=== PATIENT | female | born 1970 | race Hispanic/Latino ===

== ENCOUNTER 2018-06-14 00:14 | Emergency (ER) | payer SELFPAY ==
[~2018-06-14] VITALS: Ht 162.6 cm; Wt 72.1 kg
[~2018-06-14 00:14] MED LIST: BACTRIM DS TAB1 EACH PO; CALCIUM500 MG; CEFDINIR300 MG PO; DILAUDID4 MG PO; FENTANYL1 EAC1 TOP; FERROUS SULFAT324 MG; GABAPENTIN300 MG PO; HUMALOG100 UNIT/1; HUMULIN-R100 UNITS/ SC; LANTUS100 UNITS/ SC; LISINOPRIL10 MG PO; LOPRESSOR25 MG PO; LYRICA75 MG PO; METFORMIN HCL500 MG PO; METOCLOPRAMIDE10 MG PO; NEXIUM40 MG PO; NORCO 10MG-325MG1 EA PO; OXYCODONE HCL10 MG PO; PERCOCET 10-321 EACH; ULTRAM50 MG PO; VITAMIN D250000 UNIT PO; ZYVOX600 MG PO
--- OUTSIDE RECORDS SUMMARY | 2018-06-14 00:18 | XMS REPORT | Continuity of Care Document ---
Author Author [facility] Interface Address Unknown Phone Unavailable Problems Problem Status Onset Date Classification Date Reported Comments Source Discharge Diagnosis: Acute Hyperglycemia 10/12/2014 10/14/2014 [facility] Discharge Diagnosis: Drug-seeking behavior 10/12/2014 10/14/2014 [facility] Discharge Diagnosis: Abscess of groin, right 10/11/2014 10/14/2014 [facility] ABSCESS Active 10/11/2014 [facility] Diabetes Type 2 Resolved Problem 10/14/2014 [facility] Medications Medication Details Route Status Patient Instructions Ordering Provider Order Date Source Sulfamethoxazole 800 MG / Trimethoprim 160 MG Oral Tablet [Bactrim] 1 tab, PO, BID, # 28 tab, 0 Refill(s) Active 10/12/2014 [facility] Hydromorphone 1 mg, Route: IVP, ONCE, Dosing Weight 68.182, kg, Priority: STAT, Start date: 10/12/14 0:01:00, Stop date: 10/12/14 0:01:00 Inactive 10/12/2014 [facility] Dilaudid 1 mg, Route: IV, ONCE, Dosing Weight 68.182, kg, Start date: 10/12/14 0:01:00, Stop date: 10/12/14 0:01:00 Inactive 10/12/2014 [facility] Vancomycin 2 gm, 500 mL, Route: IVPB, Drug form: SOLN, ONCE, Dosing Weight 68.182, kg, Priority: STAT, Start date: 10/11/14 21:23:00, Stop date: 10/11/14 21:23:00Notes: Same as: Vancocin Infusion rate 2001 mg: infuse over 2.5 hours Inactive 10/12/2014 [facility] Potassium Chloride 20 MEQ Extended Release Tablet 40 mEq, 2 tab, Route: PO, Drug form: ERTAB, ONCE, Dosing Weight 68.182, kg, Priority: STAT, Start date: 10/11/14 21:16:00, Stop date: 10/11/14 21:16:00Notes: (Same as: K-Dur 20) "Do Not Crush" With food and full glass of water Inactive 10/12/2014 [facility] Insulin regular 10 unit, 0.1 mL, Route: IVP, Drug form: INJ, ONCE, Dosing Weight 68.182, kg, Priority: STAT, Start date: 10/11/14 21:07:00, Stop date: 10/11/14 21:07:00Notes: (Same as: Humulin R and NovoLIN R) (Do not shake) Inactive 10/12/2014 [facility] Sodium Chloride 0.154 MEQ/ML Injectable Solution 1,000 mL, 1,000 ml/hr, Infuse Over: 1 hr, Route: IV, 1,000, Drug form: INJ, ONCE, Priority: STAT, Dosing Weight 68.182 kg, Start date: 10/11/14 21:06:00, Duration: 1 doses or times, Stop date: 10/11/14 21:06:00 No Longer Active 10/12/2014 [facility] Insulin regular 10 unit, 0.1 mL, Route: SUB-Q, Drug form: INJ, ONCE, Dosing Weight 68.182, kg, Priority: STAT, Start date: 10/11/14 20:49:00, Stop date: 10/11/14 20:49:00Notes: (Same as: Humulin R and NovoLIN R) (Do not shake) Inactive 10/12/2014 [facility] Acetaminophen 300 MG / Codeine Phosphate 60 MG Oral Tablet [Tylenol with Codeine #4] 1 - 2 tab, PO, Q4H, PRN Pain, # 20 tab, 0 Refill(s) Active 10/12/2014 [facility] Sulfamethoxazole 800 MG / Trimethoprim 160 MG Oral Tablet [Bactrim] 1 tab, PO, BID, # 20 tab, 0 Refill(s) Active 10/12/2014 [facility] Clindamycin 900 mg, Route: IVPB, ONCE, Dosing Weight 68.182, kg, Priority: STAT, Start date: 10/11/14 19:20:00, Stop date: 10/11/14 19:20:00 Inactive 10/12/2014 [facility] Zofran 4 mg, 2 mL, Route: IVP, Drug form: INJ, ONCE, Dosing Weight 68.182, kg, Priority: STAT, Start date: 10/11/14 19:20:00, Stop date: 10/11/14 19:20:00Notes: (Same as: Zofran) Inactive 10/12/2014 [facility] Sodium Chloride 0.154 MEQ/ML Injectable Solution 1,000 mL, 1,000 ml/hr, Infuse Over: 1 hr, Route: IV, 1,000, Drug form: INJ, ONCE, Priority: STAT, Dosing Weight 68.182 kg, Start date: 10/11/14 19:19:00, Duration: 1 doses or times, Stop date: 10/11/14 19:19:00 Inactive 10/12/2014 [facility] Morphine 4 mg, 2 mL, Route: IVP, Drug form: INJ, ONCE, Dosing Weight 68.182, kg, Start date: 10/11/14 19:19:00, Stop date: 10/11/14 19:19:00Notes: (Same as:MORPhine Sulfate) Inactive 10/12/2014 [facility] Allergies, Adverse Reactions, Alerts Substance Category Reaction Severity Reaction type Status Date Reported Comments Source Immunizations Immunization Date Given Site Status Last Updated Comments Source Results Order Name Results Value Reference Range Date Interpretation Comments Source URINE CHEM U Preg Negative (10/11/14 8:31 PM) Negative 10/12/2014 [facility] URINE AND STOOL UA Color Ltyellow 10/12/2014 [facility] URINE AND STOOL UA Urobilinogen <=1.0 mg/dL 0.1 - 1.0 10/12/2014 [facility] URINE AND STOOL UA WBC 1 /HPF 0 - 5 10/12/2014 [facility] URINE AND STOOL UA Blood Small *ABN* (10/11/14 8:18 PM) Negative 10/12/2014 [facility] URINE AND STOOL UA Sq Epi Occasional /LPF Few /LPF 10/12/2014 [facility] URINE AND STOOL UA Nitrite Negative (10/11/14 8:18 PM) Negative 10/12/2014 [facility] URINE AND STOOL UA Leuk Est Negative (10/11/14 8:18 PM) Negative 10/12/2014 [facility] URINE AND STOOL UA Spec Grav 1.021 <=1.030 10/12/2014 [facility] URINE AND STOOL UA Turbidity Clear (10/11/14 8:18 PM) Clear 10/12/2014 [facility] URINE AND STOOL UA RBC 4 /HPF 0 - 2 10/12/2014 [facility] URINE AND STOOL UA [place] Yeast Occasional /HPF None Seen /HPF 10/12/2014 [facility] URINE AND STOOL UA Ketones Negative mg/dL Negative mg/dL 10/12/2014 [facility] URINE AND STOOL UA Bili Negative *NA* (10/11/14 8:18 PM) Negative 10/12/2014 [facility] URINE AND STOOL UA Glucose 500 mg/dL Negative mg/dL 10/12/2014 [facility] URINE AND STOOL UA pH 6.0 5.0 - 8.0 10/12/2014 [facility] URINE AND STOOL UA Protein Negative mg/dL Negative mg/dL 10/12/2014 [facility] CHEM PANEL Lactic Acid Lvl 5.2 mMol/L 0.5 - 2.2 10/12/2014 5Result Comment: Critical Result(s) called to october grgurt at 10/11/2014 20:43_ byAN_. Read back OK. [facility] CHEM PANEL Lipase Lvl 167 unit/L 73 - 393 10/12/2014 [facility] CHEM PANEL Amylase Lvl 34 unit/L 25 - 115 10/12/2014 [facility] ELECTROLYTES Potassium Lvl 3.0 meq/L 3.5 - 5.1 10/12/2014 1Result Comment: Critical Result(s) called to october grgurt at 10/11/2014 20:43_ byAN_. Read back OK. [facility] ELECTROLYTES Sodium Lvl 129 meq/L 135 - 145 10/12/2014 [facility] ELECTROLYTES Chloride Lvl 91 meq/L 95 - 109 10/12/2014 [facility] ELECTROLYTES eGFR 61 mL/min/1.73m2 10/12/2014 2Result Comment: The eGFR is calculated using the CKD-EPI formula. In most young, healthy individuals the eGFR will be >90 mL/min/1.73m2. The eGFR declines with age. An eGFR of 60-89 may be normal in some populations, particularly the elderly, for whom the CKD-EPI formula has not been extensively validated. Use of the eGFR is not recommended in the following populations: Individuals with unstable creatinine concentrations, including patients and those with serious co-morbid conditions. Patients with extremes in muscle mass or diet. The data above are obtained from the National Kidney Disease Education Program (NKDEP) which additionally recommends that when the eGFR is used in patients with extremes of body mass index for purposes of drug dosing, the eGFR should be multiplied by the estimated BMI. [facility] ELECTROLYTES BUN 12 mg/dL 7 - 22 10/12/2014 [facility] ELECTROLYTES Creatinine Lvl 1.1 mg/dL 0.5 - 1.4 10/12/2014 [facility] ELECTROLYTES AGAP 13.0 meq/L 10.0 - 20.0 10/12/2014 [facility] ELECTROLYTES CO2 28 meq/L 24 - 32 10/12/2014 [facility] ELECTROLYTES Glucose Lvl 561 mg/dL 70 - 99 10/12/2014 4Interpretive Data: Adult reference range values reflect the clinical guidelines of the [place] [employer]. [facility] ELECTROLYTES B/C Ratio 11 6 - 25 10/12/2014 [facility] ELECTROLYTES Calcium Lvl 7.7 mg/dL 8.5 - 10.5 10/12/2014 [facility] ELECTROLYTES AST 18 unit/L 0 - 37 10/12/2014 [facility] ELECTROLYTES A/G Ratio 0.6 0.7 - 1.6 10/12/2014 [facility] ELECTROLYTES ALT 9 unit/L 0 - 65 10/12/2014 [facility] ELECTROLYTES Bili Total 0.6 mg/dL 0.2 - 1.3 10/12/2014 [facility] ELECTROLYTES Alk Phos 129 unit/L 39 - 136 10/12/2014 [facility] ELECTROLYTES Total Protein 6.7 g/dL 6.4 - 8.4 10/12/2014 [facility] ELECTROLYTES Albumin Lvl 2.4 g/dL 3.5 - 5.0 10/12/2014 [facility] ELECTROLYTES Globulin 4.3 g/dL 2.0 - 4.0 10/12/2014 [facility] HEMATOLOGY MPV 10.7 fL 7.4 - 10.4 10/12/2014 [facility] HEMATOLOGY Platelet 156 K/CMM 133 - 450 10/12/2014 [facility] MCV 93.5 fL 80.0 - 98.0 10/12/2014 [facility] Hgb 11.8 g/dL 12.0 - 16.0 10/12/2014 [facility] HEMATOLOGY Hct 34.1 % 36.0 - 48.0 10/12/2014 [facility] MCH 32.4 pg 27.0 - 31.0 10/12/2014 [facility] MCHC 34.7 g/dL 32.0 - 36.0 10/12/2014 [facility] RDW 12.4 % 11.5 - 14.5 10/12/2014 [facility] RBC 3.65 M/CMM 4.20 - 5.40 10/12/2014 [facility] HEMATOLOGY WBC 11.6 K/CMM 3.7 - 10.4 10/12/2014 [facility] HEMATOLOGY Basophils 0.5 % 0.0 - 1.0 10/12/2014 [facility] HEMATOLOGY Eosinophils 1.0 % 0.0 - 4.0 10/12/2014 [facility] HEMATOLOGY Monocytes 6.0 % 2.0 - 12.0 10/12/2014 [facility] HEMATOLOGY Basophils # 0.1 K/CMM 0.0 - 0.2 10/12/2014 [facility] HEMATOLOGY Segs-Bands # 9.2 K/CMM 1.5 - 8.1 10/12/2014 [facility] HEMATOLOGY Lymphocytes # 1.5 K/CMM 1.0 - 5.5 10/12/2014 [facility] HEMATOLOGY Monocytes # 0.7 K/CMM 0.0 - 0.8 10/12/2014 [facility] HEMATOLOGY Eosinophils # 0.1 K/CMM 0.0 - 0.5 10/12/2014 [facility] HEMATOLOGY Segs 79.4 % 45.0 - 75.0 10/12/2014 [facility] HEMATOLOGY Lymphocytes 13.1 % 20.0 - 40.0 10/12/2014 [facility] Vital Signs Vital Sign Value Date Comments Source Systolic (mm Hg) 123 10/12/2014 [facility] Diastolic (mm Hg) 79 10/12/2014 [facility] Respitory Rate 16 10/12/2014 [facility] Heart Rate 113 10/12/2014 [facility] Temperature Oral (F) 98.7 F 10/12/2014 [facility] Respitory Rate 16 10/12/2014 [facility] Temperature Oral (F) 98.5 F 10/12/2014 [facility] Heart Rate 107 10/12/2014 [facility] Systolic (mm Hg) 148 10/12/2014 [facility] Diastolic (mm Hg) 87 10/12/2014 [facility] BMI Calculated 25.01 10/11/2014 [facility] Weight 68.182 10/11/2014 [facility] Height 165.1 cm 10/11/2014 [facility] Heart Rate 110 10/11/2014 [facility] Respitory Rate 16 10/11/2014 [facility] Systolic (mm Hg) 115 10/11/2014 [facility] Diastolic (mm Hg) 75 10/11/2014 [facility] Encounters Location Location Details Encounter Type Encounter Number Reason For Visit Attending Provider ADM Date DC Date Status Source [facility] [id number] Tricia Forman 10/11/2014 10/12/2014 [facility] Procedures Procedure Code Date Perfomer Comments Source section [id number] [facility] Tubal ligation [id number] [facility]
--- OUTSIDE RECORDS SUMMARY | 2018-06-14 00:18 | XMS REPORT | Summary of Care ---
Author Organization Unknown Address Unknown Phone Unavailable Encounter [facility](SCOOBY) [id number] Date(s): 10/11/14 - 10/12/14 [facility] [address] [place] [address] Discharge Diagnosis: Acute Hyperglycemia Discharge Diagnosis: Abscess of groin, right Discharge Diagnosis: Drug-seeking behavior Discharge Disposition: Home Physician Attending: Tricia Forman MD Vital Signs 1 2 3 Most recent to oldest [Reference Range]: 165.1 cm (10/11/14 6:30 PM) Height 98.7 DegF (10/12/14 1:46 AM) 98.5 DegF (10/11/14 11:02 PM) Temperature Oral [96.4-99.1 DegF] 123/79 mmHg (10/12/14 1:46 AM) 148/87 mmHg *HI* (10/11/14 11:02 PM) 115/75 mmHg (10/11/14 6:30 PM) Blood Pressure [90-140/60-90 mmHg] 16 BRMIN (10/12/14 1:46 AM) 16 BRMIN (10/11/14 11:02 PM) 16 BRMIN (10/11/14 6:30 PM) Respiratory Rate [14-20 BRMIN] 113 bpm *HI* (10/12/14 1:46 AM) 107 bpm *HI* (10/11/14 11:02 PM) 110 bpm *HI* (10/11/14 6:30 PM) Peripheral Pulse Rate [60-100 bpm] 68.182 kg (10/11/14 6:30 PM) Weight 25.01 m2 (10/11/14 6:30 PM) Body Mass Index Problem List Condition Effective Dates Status Health Status Informant Diabetes Type Resolved 2(Confirmed) Allergies, Adverse Reactions, Alerts Substance Reaction Severity Status NKDA Active Medications Bactrim DS oral tablet 1 tab, PO, BID, # 20 tab, 0 Refill(s) Start Date: 10/11/14 Stop Date: 10/21/14 Status: Ordered Bactrim DS oral tablet 1 tab, PO, BID, # 28 tab, 0 Refill(s) Start Date: 10/12/14 Stop Date: 10/26/14 Status: Ordered clindamycin 900 mg, Route: IVPB, ONCE, Dosing Weight 68.182, kg, Priority: STAT, Start date: 10/11/14 19:20:00, Stop date: 10/11/14 19:20:00 Start Date: 10/11/14 Stop Date: 10/11/14 Status: Completed Dilaudid 1 mg, Route: IV, ONCE, Dosing Weight 68.182, kg, Start date: 10/12/14 0:01:00, S top date: 10/12/14 0:01:00 Start Date: 10/12/14 Stop Date: 10/12/14 Status: Completed hydromorphone 1 mg, Route: IVP, ONCE, Dosing Weight 68.182, kg, Priority: STAT, Start date: 0:01:00, Stop date: 10/12/14 0:01:00 Start Date: 10/12/14 Stop Date: 10/12/14 Status: Completed Insulin regular 10 unit, 0.1 mL, Route: IVP, Drug form: INJ, ONCE, Dosing Weight 68.182, kg, Doris ority: STAT, Start date: 10/11/14 21:07:00, Stop date: 10/11/14 21:07:00 Notes: (Same as: Humulin R and NovoLIN R) (Do not shake) Start Date: 10/11/14 Stop Date: 10/11/14 Status: Discontinued Insulin regular 10 unit, 0.1 mL, Route: SUB-Q, Drug form: INJ, ONCE, Dosing Weight 68.182, kg, P riority: STAT, Start date: 10/11/14 20:49:00, Stop date: 10/11/14 20:49:00 Notes: (Same as: Humulin R and NovoLIN R) (Do not shake) Start Date: 10/11/14 Stop Date: 10/11/14 Status: Completed morphine Sulfate 4 mg, 2 mL, Route: IVP, Drug form: INJ, ONCE, Dosing Weight 68.182, kg, Start da te: 10/11/14 19:19:00, Stop date: 10/11/14 19:19:00 Notes: (Same as:MORPhine Sulfate) Start Date: 10/11/14 Stop Date: 10/11/14 Status: Completed NS (Bolus) IV 1,000 mL, 1,000 ml/hr, Infuse Over: 1 hr, Route: IV, 1,000, Drug form: INJ, ONCE , Priority: STAT, Dosing Weight 68.182 kg, Start date: 10/11/14 19:19:00, Durati on: 1 doses or times, Stop date: 10/11/14 19:19:00 Start Date: 10/11/14 Stop Date: 10/11/14 Status: Completed potassium chloride 20 mEq oral tablet, extended release 40 mEq, 2 tab, Route: PO, Drug form: ERTAB, ONCE, Dosing Weight 68.182, kg, Prio rity: STAT, Start date: 10/11/14 21:16:00, Stop date: 10/11/14 21:16:00 Notes: (Same as: K-Dur 20)"Do Not Crush" With food and full glass of water Start Date: 10/11/14 Stop Date: 10/11/14 Status: Completed Sodium Chloride 0.9% (Bolus) IV 1,000 mL, 1,000 ml/hr, Infuse Over: 1 hr, Route: IV, 1,000, Drug form: INJ, ONCE , Priority: STAT, Dosing Weight 68.182 kg, Start date: 10/11/14 21:06:00, Durati on: 1 doses or times, Stop date: 10/11/14 21:06:00 Start Date: 10/11/14 Stop Date: 10/12/14 Status: Completed Sodium Chloride 0.9% (Bolus) IV 1,000 mL, 1,000 ml/hr, Infuse Over: 1 hr, Route: IV, 1,000, Drug form: INJ, ONCE , Priority: STAT, Dosing Weight 68.182 kg, Start date: 10/11/14 21:06:00, Durati on: 1 doses or times, Stop date: 10/11/14 21:06:00 Start Date: 10/11/14 Stop Date: 10/11/14 Status: Completed Tylenol with Codeine #4 oral tablet 1 - 2 tab, PO, Q4H, PRN Pain, # 20 tab, 0 Refill(s) Start Date: 10/11/14 Stop Date: 10/13/14 Status: Ordered vancomycin 2 gm, 500 mL, Route: IVPB, Drug form: SOLN, ONCE, Dosing Weight 68.182, kg, Prio rity: STAT, Start date: 10/11/14 21:23:00, Stop date: 10/11/14 21:23:00 Notes: Same as: Vancocin Infusion rate< 1000 mg: infuse over 1 [id number] - 1500 mg: infuse over 1.5 [id number] - 2000 mg: infuse over 2 hours> 2001 mg: infuse over 2.5 hours Start Date: 10/11/14 Stop Date: 10/11/14 Status: Completed Zofran 4 mg, 2 mL, Route: IVP, Drug form: INJ, ONCE, Dosing Weight 68.182, kg, Priority : STAT, Start date: 10/11/14 19:20:00, Stop date: 10/11/14 19:20:00 Notes: (Same as: Zofran) Start Date: 10/11/14 Stop Date: 10/11/14 Status: Completed Results ELECTROLYTES Most recent to 1 oldest [Reference Range]: Sodium Lvl [135-145 129 mEq/L mEq/L] *LOW* (10/11/14 8:09 PM) Potassium Lvl 3.0 mEq/L 1 [3.5-5.1 mEq/L] *CRIT* (10/11/14 8:09 PM) Chloride Lvl [95-109 91 mEq/L mEq/L] *LOW* (10/11/14 8:09 PM) CO2 [24-32 mEq/L] 28 mEq/L (10/11/14 8:09 PM) AGAP [10.0-20.0 13.0 mEq/L mEq/L] (10/11/14 8:09 PM) 1Result Comment: Critical Result(s) called to october ricky at 10/11/2014 20:43_ byAN_. Read back OK. CHEM PANEL Most recent to 1 oldest [Reference Range]: Creatinine Lvl 1.1 mg/dL [0.5-1.4 mg/dL] (10/11/14 8:09 PM) eGFR 61 mL/min/1.73m2 2 *NA* (10/11/14 8:09 PM) BUN [7-22 mg/dL] 12 mg/dL (10/11/14 8:09 PM) B/C Ratio [6-25] 11 (10/11/14 8:09 PM) Glucose Lvl [70-99 561 mg/dL 3, 4 mg/dL] *CRIT* (10/11/14 8:09 PM) Total Protein 6.7 g/dL [6.4-8.4 g/dL] (10/11/14 8:09 PM) Albumin Lvl [3.5-5.0 2.4 g/dL g/dL] *LOW* (10/11/14 8: PM) Globulin [2.0-4.0 4.3 g/dL g/dL] *HI* (10/11/14 8:09 PM) A/G Ratio [0.7-1.6] 0.6 *LOW* (10/11/14 8:09 PM) Calcium Lvl 7.7 mg/dL [8.5-10.5 mg/dL] *LOW* (10/11/14 8:09 PM) ALT [0-65 unit/L] 9 unit/L (10/11/14 8:09 PM) AST [0-37 unit/L] 18 unit/L (10/11/14 8:09 PM) Alk Phos [39-136 129 unit/L unit/L] (10/11/14 8:09 PM) Bili Total [0.2-1.3 0.6 mg/dL mg/dL] (10/11/14 8:09 PM) Amylase Lvl [25-115 34 unit/L unit/L] (10/11/14 8:09 PM) Lipase Lvl [73-393 167 unit/L unit/L] (10/11/14 8:09 PM) Lactic Acid Lvl 5.2 mMol/L 5 [0.5-2.2 mMol/L] *CRIT* (10/11/14 8:09 PM) 2Result Comment: The eGFR is calculated using [...] from the National Kidney Disease Education Program ( NKDEP) which additionally recommends that when the eGFR is used in patients with extremes of body mass index for purposes of drug dosing, the eGFR should be mul tiplied by the estimated BMI. 3Result Comment: Critical Result(s) called to octoberjosefa at 10/11/2014 20:43_ byAN_. Read back OK. 4Interpretive Data: Adult reference range values reflect the clinical guidelines of the [place] [employer]. 5Result Comment: Critical Result(s) called to octobersushil at 10/11/2014 20:43_ byAN_. Read back OK. URINE CHEM Most recent to 1 oldest [Reference Range]: U Preg [Negative] Negative (10/11/14 8:31 PM) URINE AND STOOL Most recent to 1 oldest [Reference Range]: UA Turbidity [Clear] Clear (10/11/14 8:18 PM) UA Color Ltyellow *NA* (10/11/14 8:18 PM) UA pH [5.0-8.0] 6.0 (10/11/14 8:18 PM) UA Spec Grav 1.021 [<=1.030] (10/11/14 8:18 PM) UA Glucose [Negative 500 mg/dL mg/dL] *ABN* (10/11/14 8:18 PM) UA Blood [Negative] Small *ABN* (10/11/14 8:18 PM) UA Ketones [Negative Negative mg/dL mg/dL] *NA* (10/11/14 8:18 PM) UA Protein [Negative Negative mg/dL mg/dL] (10/11/14 8:18 PM) UA Urobilinogen <=1.0 mg/dL [0.1-1.0 mg/dL] *NA* (10/11/14 8:18 PM) UA Bili [Negative] Negative *NA* (10/11/14 8:18 PM) UA Leuk Est Negative [Negative] (10/11/14 8:18 PM) UA Nitrite Negative [Negative] (10/11/14 8:18 PM) UA WBC [0-5 /HPF] 1 /HPF (10/11/14 8:18 PM) UA RBC [0-2 /HPF] 4 /HPF *HI* (10/11/14 8:18 PM) UA Sq Epi [Few /LPF] Occasional /LPF *NA* (10/11/14 8:18 PM) UA [place] Yeast [None Occasional /HPF Seen /HPF] *ABN* (10/11/14 8:18 PM) HEMATOLOGY Most recent to 1 oldest [Reference Range]: WBC [3.7-10.4 K/CMM] 11.6 K/CMM *HI* (10/11/14 8:09 PM) RBC [4.20-5.40 3.65 M/CMM M/CMM] *LOW* (10/11/14 8:09 PM) Hgb [12.0-16.0 g/dL] 11.8 g/dL *LOW* (10/11/14 8:09 PM) Hct [36.0-48.0 %] 34.1 % *LOW* (10/11/14 8:09 PM) MCV [80.0-98.0 fL] 93.5 fL (10/11/14 8:09 PM) MCH [27.0-31.0 pg] 32.4 pg *HI* (10/11/14 8:09 PM) MCHC [32.0-36.0 34.7 g/dL g/dL] (10/11/14 8:09 PM) RDW [11.5-14.5 %] 12.4 % (10/11/14 8:09 PM) Platelet [133-450 156 K/CMM K/CMM] (10/11/14 8:09 PM) MPV [7.4-10.4 fL] 10.7 fL *HI* (10/11/14 8:09 PM) Segs [45.0-75.0 %] 79.4 % *HI* (10/11/14 8:09 PM) Lymphocytes 13.1 % [20.0-40.0 %] *LOW* (10/11/14 8:09 PM) Monocytes [2.0-12.0 6.0 % %] (10/11/14 8:09 PM) Eosinophils [0.0-4.0 1.0 % %] (10/11/14 8:09 PM) Basophils [0.0-1.0 0.5 % %] (10/11/14 8:09 PM) Segs-Bands # 9.2 K/CMM [1.5-8.1 K/CMM] *HI* (10/11/14 8:09 PM) Lymphocytes # 1.5 K/CMM [1.0-5.5 K/CMM] (10/11/14 8:09 PM) Monocytes # [0.0-0.8 0.7 K/CMM K/CMM] (10/11/14 8:09 PM) Eosinophils # 0.1 K/CMM [0.0-0.5 K/CMM] (10/11/14 8:09 PM) Basophils # [0.0-0.2 0.1 K/CMM K/CMM] (10/11/14 8:09 PM) Immunizations No data available for this section Procedures Procedure Date Related Diagnosis Body Site section Tubal ligation Social History Social History Type Response Smoking Status Never smoker; Exposure to Tobacco Smoke None; Cigarette Smoking Last 365 Days No; Reg Smoking Cessation Counseling No Assessment and Plan No data available for this section
--- OUTSIDE RECORDS SUMMARY | 2018-06-14 00:19 | XMS REPORT ---
Author Author [facility] Address Unknown Phone Unavailable Care Team Providers Care [employer] Name Role Phone LAZARO ROSADO Unavailable Unavailable Brenna LIZ Unavailable Unavailable Problems This patient has no known problems. Allergies, Adverse Reactions, Alerts This patient has no known allergies or adverse reactions. Medications This patient has no known medications. Encounters Start Date/Time End Date/Time Encounter Type Admission Type Attending [facility] Care Department Encounter ID 2017-04-02 23:26:00 Inpatient [facility] [id number] 2018-07-02 00:00:00 2018-07-02 00:00:00 Outpatient [facility] [id number] 2018-05-12 00:00:00 2018-05-12 00:00:00 Outpatient [facility] [id number] 2018-04-03 15:24:17 2018-04-03 15:24:17 Outpatient [facility] [id number] 2018-03-04 00:00:00 2018-03-04 00:00:00 Outpatient [facility] [id number] 2018-02-15 00:00:00 2018-02-15 00:00:00 Outpatient [facility] [id number] 2018-01-22 07:39:13 2018-01-22 07:39:13 Outpatient [facility] [id number] 2017-12-13 00:00:00 2017-12-13 00:00:00 Outpatient [facility] [id number] 2017-12-12 06:17:20 2017-12-12 06:17:20 Emergency [facility] [id number] 2017-12-11 17:23:11 2017-12-11 17:23:11 Emergency [facility] [id number] 2017-12-11 14:32:59 2017-12-11 14:32:59 Outpatient [facility] [id number] 2017-12-10 00:00:00 2017-12-10 00:00:00 Outpatient [facility] [id number] 2017-12-10 00:00:00 2017-12-10 00:00:00 Outpatient [facility] [id number] 2017-12-10 00:00:00 2017-12-10 00:00:00 Outpatient [facility] [id number] 2017-12-06 00:00:00 2017-12-06 00:00:00 Outpatient [facility] [id number] 2017-12-03 00:00:00 2017-12-03 00:00:00 Outpatient [facility] [id number] 2017-12-02 00:00:00 2017-12-02 00:00:00 Outpatient [facility] [id number] 2017-11-28 00:00:00 2017-11-28 00:00:00 Outpatient [facility] [id number] 2017-11-28 00:00:00 2017-11-28 00:00:00 Outpatient [facility] [id number] 2017-11-27 00:00:00 2017-11-27 00:00:00 Outpatient [facility] [id number] 2017-11-23 16:00:07 2017-11-23 16:00:07 Outpatient [facility] [id number] 2017-11-23 12:26:33 2017-11-23 12:26:33 Outpatient [facility] [id number] 2017-11-23 03:21:45 2017-11-23 03:21:45 Outpatient [facility] [id number] 2017-11-01 13:14:46 2017-11-01 13:14:46 Outpatient [facility] [id number] 2017-10-22 00:00:00 2017-10-22 00:00:00 Outpatient [facility] [id number] 2017-10-01 08:36:09 2017-10-01 08:36:09 Outpatient [facility] [id number] 2017-10-01 00:00:00 2017-10-01 00:00:00 Outpatient [facility] [id number] 2017-09-04 09:40:07 2017-09-04 09:40:07 Outpatient [facility] [id number] 2017-08-23 00:00:00 2017-08-23 00:00:00 Outpatient [facility] [id number] 2017-08-22 15:03:22 2017-08-22 15:03:22 Outpatient [facility] [id number] 2017-08-22 11:04:42 2017-08-22 11:04:42 Outpatient [facility] [id number] 2017-08-22 00:00:00 2017-08-22 00:00:00 Outpatient [facility] [id number] 2017-08-14 00:00:00 2017-08-14 00:00:00 Outpatient [facility] [id number] 2017-08-08 15:46:40 2017-08-08 15:46:40 Outpatient [facility] [id number] 2017-08-02 00:00:00 2017-08-02 00:00:00 Outpatient [facility] [id number] 2017-07-22 00:00:00 2017-07-22 00:00:00 Outpatient [facility] [id number] 2017-07-19 13:43:48 2017-07-19 13:43:48 Outpatient [facility] [id number] 2017-07-12 00:00:00 2017-07-12 00:00:00 Outpatient [facility] [id number] 2017-06-28 14:04:39 2017-06-28 14:04:39 Outpatient [facility] [id number] 2017-06-25 00:00:00 2017-06-25 00:00:00 Outpatient [facility] [id number] 2017-06-17 00:00:00 2017-06-17 00:00:00 Outpatient [facility] [id number] 2017-06-14 14:30:48 2017-06-14 14:30:48 Outpatient [facility] [id number] 2017-05-31 10:21:38 2017-05-31 10:21:38 Outpatient [facility] [id number] 2017-05-29 00:00:00 2017-05-29 00:00:00 Outpatient [facility] [id number] 2017-05-28 10:37:21 2017-05-28 10:37:21 Outpatient [facility] [id number] 2017-05-23 09:58:42 2017-05-23 09:58:42 Outpatient [facility] [id number] 2017-05-23 08:52:59 2017-05-23 08:52:59 Outpatient [facility] [id number] 2017-05-23 00:00:00 2017-05-23 00:00:00 Outpatient [facility] [id number] 2017-05-03 00:00:00 2017-05-03 00:00:00 Outpatient [facility] [id number] 2017-04-25 15:21:38 2017-04-25 15:21:38 Outpatient [facility] [id number] 2017-04-16 00:00:00 2017-04-16 00:00:00 Outpatient [facility] [id number] 2017-04-03 17:52:19 2017-04-03 00:00:00 Inpatient [facility] [id number] 2017-04-03 12:01:27 2017-04-03 00:00:00 Inpatient [facility] [id number] 2017-04-02 17:12:23 2017-04-02 17:12:23 Emergency [facility] [id number] 2017-04-02 16:40:07 2017-04-02 16:40:07 Inpatient [facility] [id number] 2017-04-02 10:52:15 2017-04-02 10:52:15 Outpatient [facility] [id number] 2017-04-02 10:28:24 2017-04-02 10:28:24 Outpatient [facility] [id number] 2017-04-02 00:00:00 2017-04-02 00:00:00 Outpatient [facility] [id number] 2017-03-25 09:34:05 2017-03-25 09:34:05 Outpatient [facility] [id number] 2017-02-22 16:04:50 2017-02-22 16:04:50 Outpatient [facility] [id number] 2017-02-21 00:00:00 2017-02-21 00:00:00 Outpatient [facility] [id number] 2017-02-21 00:00:00 2017-02-21 00:00:00 Outpatient [facility] [id number] 2017-02-18 00:00:00 2017-02-18 00:00:00 Outpatient [facility] [id number] 2017-02-11 00:00:00 2017-02-11 00:00:00 Outpatient [facility] [id number] 2017-02-11 00:00:00 2017-02-11 00:00:00 Outpatient [facility] [id number] 2017-02-08 00:00:00 2017-02-08 00:00:00 Outpatient [facility] [id number] 2017-01-23 00:00:00 2017-01-23 00:00:00 Outpatient [facility] [id number] 2017-01-18 14:50:33 2017-01-18 14:50:33 Outpatient [facility] [id number] 2017-01-11 11:18:44 2017-01-11 11:18:44 Outpatient [facility] [id number] 2017-01-09 15:54:53 2017-01-09 15:54:53 Outpatient [facility] [id number] 2017-01-09 13:38:41 2017-01-09 13:38:41 Outpatient [facility] [id number] Results Test Description Test Time Test Comments Text Results Atomic Results Result Comments ECHO COMPLETE (ECHOCARDIOGRAM) [place] [address] Patient Name : AGAPITO CHAVIRA MR #: [id number] : 1970 Age/Sex: 47/F Adm Physician : LAZARO ROSADO MD Admit Date : 07/05/17 Location : [facility] Room/Bed : [place] [address] REPORT: Cardiology Report DATE OF STUDY: July 06, 2017 ECHOCARDIOGRAM ATTENDING PHYSICIAN: Dr. Lazaro Rosado. M-MODE: Normal chamber sizes. Left ventricular hypertrophy. Normal contractility. Aortic sclerosis. Normal mitral and tricuspid valves. No pericardial effusion. SECTOR SCAN: Normal chamber sizes. Left ventricular hypertrophy. Normal contractility. Aortic sclerosis. Normal mitral and tricuspid valves. No pericardial effusion. CARDIAC DOPPLER STUDY WITH COLOR: Trace mitral and tricuspid regurgitation. CONCLUSIONS 1. Left ventricular hypertrophy with ejection fraction of approximately 60%. 2. Mild aortic sclerosis without stenosis. 3. Trace mitral and tricuspid regurgitation, probably not clinically significant. Job#: [id number] EV cc: LAZARO ROSADO MD Signature Date Dictated By: JAMIE POPE MD Transcribed By: EDS on 07/07/17 <Electronically signed by JAMIE POPE MD><<Signature on File>>08/02/17 1029 COPY TO: CT BRAIN WO [facility] [address] [place] [address] Patient Name: AGAPITO CHAVIRA MR #: [id number] : 1970 Age/Sex: 46/F Req #: [id number] Adm Physician: Ordered by: MARIELY FLORENCE Report #: [id number] Location: ER Room/Bed: Procedure: [id number] CT/CT BRAIN WO Exam Date: 07/05/17 Exam Time: 1309 REPORT STATUS: Signed Examination: CT BRAIN WITHOUT CONTRAST History:Dizziness. Vomiting. Comparison studies:None Technique: Axial images were obtained from the skull base to the vertex. Coronal and sagittal images reconstructed from the axial data. Intravenous contrast: None Findings: Scalp: No abnormalities. Bones: No fractures, blastic or lytic lesions. Brain sulci: Appropriate for age. Ventricles: Normal in size and configuration. No hydrocephalus. Extra-axial space: No abnormalities. Parenchyma: No abnormal densities. No masses, hemorrhage, acute or chronic vascular insults. Sellar/suprasellar region: No abnormalities. Craniocervical junction: Patent foramen magnum. No Chiari one malformation. Incidental findings: None. Impression: No intracranial abnormalities. Signed by: Dr. Tawnya Trinidad M.D. on 07/05/2017 1:30 PM Dictated By: TAWNYA YANCEY MD 1330 Transcribed By: NATHAN on 07/05/17 1330 COPY TO: MARIELY FLORENCE CHEST SINGLE (PORTABLE) [place] [address] Patient Name: AGAPITO CHAVIRA MR #: [id number] : 1970 Age/Sex: 46/F Req #: [id number] Adm Physician: Ordered by: MARIELY FLORENCE Report #: [id number] Location: ER Room/Bed: Procedure: [id number] DX/CHEST SINGLE (PORTABLE) Exam Date: 07/05/17 Exam Time: 1300 REPORT STATUS: Signed PROCEDURE: A single AP view of the chest. COMPARISON: 05/16/17 INDICATIONS: SYNCOPE FINDINGS: Lines/tubes: None. Lungs: The lungs are well inflated and clear. There is no evidence of pneumonia or pulmonary edema. Pleura: There is no pleural effusion or pneumothorax. Heart and mediastinum: The heart and the mediastinum are unremarkable. Bones: No acute bony abnormality. IMPRESSION: 1. No acute cardiopulmonary disease. Dictated by: Bob Eaton M.D. on 07/05/2017 at 13:34 Electronically approved by: Bob Eaton M.D. on 07/05/2017 at 13:34 Dictated By: BOB EATON MD 1334 Transcribed By: MADDI on 07/05/17 1334 COPY TO: MARIELY FLORENCE CHEST 2 VIEWS [place] [address] Patient Name: AGAPITO CHAVIRA MR #: [id number] : 1970 Age/Sex: 46/F Req #: [id number] Adm Physician: Ordered by: CELESTINE GRECO NP Report #: [id number] Location: ER Room/Bed: Procedure: [id number] DX/CHEST 2 VIEWS Exam Date: Exam Time: REPORT STATUS: Signed PROCEDURE: Frontal and lateral views of the chest. COMPARISON: None. INDICATIONS: SHORTNESS OF BREATH FINDINGS: Lines/tubes: None. Lungs: The lungs are well inflated and clear. There is no evidence of pneumonia or pulmonary edema. Pleura: There is no pleural effusion or pneumothorax. Heart and mediastinum: The heart and the mediastinum are normal. Bones: No acute bony abnormality. IMPRESSION: 1. No acute cardiopulmonary disease. Dictated by: Ministerio Bajwa M.D. on 05/16/2017 at 12:21 Electronically approved by: Ministerio Bajwa M.D. on 05/16/2017 at 12:21 Dictated By: MINISTERIO BAJWA MD 1221 Transcribed By: MADDI on 05/16/17 1221 COPY TO: CELESTINE GRECO NP
[2018-06-14] MEDS ORDERED: ONDANSETRON HCL INJ 2 MG/ML VIAL IV STA (01:14)
[2018-06-14] MEDS ORDERED: INSULIN REGULAR, HUMAN 100 UNIT/1 ML 3ML VIAL IV STA (01:14)
[2018-06-14] MEDS ORDERED: PANTOPRAZOLE 40 MG 10ML VIAL IV STA (01:14)
[2018-06-14] MEDS ORDERED: SODIUM CHLORIDE 0.9% 1000ML 1,000 ML IV STA (01:14)
[2018-06-14 01:16] LABS: BASOPHILS % 0.4 % (0.0-1.0); EOSINOPHILS % 0.3 % (0.0-6.0); HEMOGLOBIN 9.5 g/dL (12.0-16.0); LYMPHOCYTES # (AUTO) 1.4 (1.0-3.2); LYMPHOCYTES % 14.6 % (18.0-39.1); MEAN CORPUSCULAR HEMOGLOBIN 31.4 pg (28-32); MEAN CORPUSCULAR HGB CONC 32.8 g/dL (31-35); MEAN CORPUSCULAR VOLUME 95.7 fL (81-99); MONOCYTES # (AUTO) 0.5 (0.2-0.8); MONOCYTES % 5.4 % (4.4-11.3); NEUTROPHILS # (AUTO) 7.5 (2.1-6.9); NEUTROPHILS % 78.9 % (38.7-80.0); PLATELET COUNT 225 x10e3/uL (140-360); RED BLOOD COUNT 3.03 x10e6/uL (3.6-5.1); RED CELL DISTRIBUTION WIDTH 13.2 % (11.7-14.4)
[2018-06-14 01:42] LABS: ALANINE AMINOTRANSFERASE 12 IU/L (0-55); ALBUMIN 2.5 g/dL (3.5-5.0); ALBUMIN/GLOBULIN RATIO 0.6 (0.8-2.0); ALKALINE PHOSPHATASE 138 IU/L (40-150); ANION GAP 18.5 mmol/L (8-16); BLOOD UREA NITROGEN 50 mg/dL (7-26); BUN/CREATININE RATIO 18 (6-25); CARBON DIOXIDE 15 mmol/L (22-29); CHLORIDE 91 mmol/L (98-107); CREATINE KINASE 36 IU/L (29-168); CREATININE, SERUM 2.71 mg/dL (0.57-1.11); EST GLOMERULAR FILTRATION RATE 19 ML/MIN (60-); POTASSIUM 4.5 mmol/L (3.5-5.1); SODIUM 120 mmol/L (136-145)
--- NOTE | 2018-06-14 01:52 | Diagnostic Imaging Report ---
History:Dizzy Comparison studies:CT head 07/05/17 Technique: Axial images were obtained from the skull base to the vertex. Coronal and sagittal images reconstructed from the axial data. Intravenous contrast: None Dose modulation, iterative reconstruction, and/or weight based adjustment of the mA/kV was utilized to reduce the radiation dose to as low as reasonably achievable. Findings: Scalp/skull: No abnormalities. Extra-axial spaces: No masses. No fluid collections. Brain sulci: Mildly prominent. Ventricles: Mild compensatory dilatation. No hydrocephalus. Parenchyma: Describe hypodensities in the supratentorial white matter are small vessel ischemic changes. No masses, hemorrhage, acute or chronic cortical vascular insults. Sellar/suprasellar region: No abnormalities. Craniocervical junction: Patent foramen magnum. No Chiari one malformation. Incidental findings: Atherosclerotic calcifications in the carotid siphons . Impression: No acute abnormalities. Chronic findings: 1. Mild generalized volume loss. 2. Mild supratentorial white matter small vessel ischemic changes. Signed by: DR Estuardo Wallace M.D. on 06/14/2018 1:49 AM
[2018-06-14 01:53] LABS: CLARITY,URINE CLEAR (CLEAR); COLOR,URINE YELLOW (YELLOW)
[2018-06-14 01:54] LABS: BILIRUBIN,URINE NEGATIVE (NEGATIVE); KETONES,URINE NEGATIVE (NEGATIVE); LEUKOCYTE ESTERASE ,URINE NEGATIVE (NEGATIVE); NITRITE,URINE NEGATIVE (NEGATIVE); PROTEIN,URINE DIPSTICK 2+ (NEGATIVE); URINE UROBILINOGEN 0.2 mg/dL (0.2 - 1)
[2018-06-14 02:16] LABS: RBC,URINE 0-5 /HPF (0-5); WBC,URINE (MAN) 0-5 /HPF (0-5)
[2018-06-14 02:17] LABS: BACTERIA,URINE FEW /HPF; EPITHELIAL CELLS,URINE MODERATE /LPF; YEAST,URINE FEW
--- NOTE | 2018-06-14 02:17 | Diagnostic Imaging Report ---
EXAM: CHEST SINGLE (PORTABLE), AP 1 view INDICATION: Dizzy, hypertension COMPARISON: None FINDINGS: LINES/TUBES: None LUNGS: No consolidations or edema. PLEURA: No effusions or pneumothorax. HEART AND MEDIASTINUM: Normal size and contour. BONES AND SOFT TISSUES: No acute findings. IMPRESSION: No acute thoracic abnormality. Signed by: Dr. Mayra Billy M.D. on 06/14/2018 2:14 AM
[2018-06-14 02:48] LABS: CALCIUM 9.1 mg/dL (8.4-10.2)
[2018-06-14] MEDS ORDERED: SODIUM CHLORIDE 0.9% 1000ML 1,000 ML ONE (02:48)
[2018-06-14 03:03] LABS: ABG HCO3 14 mmol/L (23-28); ABG PCO2 29 mmHg (41-51); ABG PO2 102 mmHg (80-105)
[2018-06-14 03:36] LABS: GLUCOSE 944 mg/dL (74-118)
[2018-06-14] MEDS ORDERED: SODIUM CHLORIDE 0.9% 1000ML 1,000 ML IV SCH (03:37)
[2018-06-14] MEDS ORDERED: MAGNESIUM SULF 1GRAM/DEXTROSE 100 ML IV PRN (03:45)
[2018-06-14] MEDS ORDERED: INSULIN DETEMIR 100 UNIT/ML PEN SQ PRN (03:45)
[2018-06-14] MEDS ORDERED: DEXTROSE 50% SYRINGE 50 ML IV PRN (03:45)
[2018-06-14] MEDS ORDERED: POTASSIUM CHLORIDE 20MEQ/100ML 200 ML IV PRN (03:45)
[2018-06-14] MEDS ORDERED: SODIUM CHLORIDE 0.45% 100 ML 100 ML IV ONE (03:59)
[2018-06-14] MEDS: INSULIN REGULAR, HUMAN 3ML VL 300 UNIT in SODIUM CHLORIDE 0.45% 100 ML 300 ML IV SCH ×4 (04:04→05:52)
[2018-06-14] MEDS ORDERED: MORPHINE SULFATE 2 MG/ML SYR IV STA (04:22)
[2018-06-14 04:35] LABS: MAGNESIUM 2.3 MG/DL (1.3-2.1)
[2018-06-14 07:31] LABS: THYROID STIMULATING HORMONE 1.712 uIU/mL (0.350-4.940)
== END 2018-06-14 06:26 | disposition other institution (70) ==
LOC: ER 00:14
DX: R42 Dizziness and giddiness (principal); R55 Syncope and collapse; E10.10 Type 1 diabetes mellitus with ketoacidosis without coma; K52.9 Noninfective gastroenteritis and colitis, unspecified; E86.1 Hypovolemia; N18.9 Chronic kidney disease, unspecified; I10 Essential (primary) hypertension; K21.9 Gastro-esophageal reflux disease without esophagitis
CPT/HCPCS: 36415; 36600; 70450; 71045; 80053; 81001; 81025; 82150; 82550; 82553; 82805; 82948; 83605; 83690; 83735; 84443; 84484; 85025; 87040; 87086; 87186; 93005; 99284; J1817; J2270; J2405; J7030

== ENCOUNTER 2018-12-05 16:33 | Observation (INO) | payer SELFPAY ==
[~2018-12-05] VITALS: Ht 162.6 cm; Wt 77.1 kg
[~2018-12-05 16:33] MED LIST changes: +LIDOCAINE HCL 2% LOCAL INJ 5 ML SDV VIAL INJ ONE; +PROPOFOL IV EMULSION 10 MG/ML 50 ML VIAL ONE
--- OUTSIDE RECORDS SUMMARY | 2018-12-05 16:37 | XMS REPORT | Clinical Summary ---
Author Author AS[facility] Address Unknown Phone Unavailable Care Team Providers Care Rubber Goods Inspector Tester Name Role Phone Carmelo De Paz PCP Allergies No Known Allergies Medications End Date Status Medication Sig Dispensed Refills Start Date Active lisinopril Take 10 mg by 0 (PRINIVIL,ZESTRIL) 10 MG mouth. 6 tablet Active atorvastatin (LIPITOR) 40 Take 40 mg by 0 MG tablet mouth daily. Active amLODIPine (NORVASC) 2.5 Take 5 mg by 0 MG tablet mouth daily. Active ergocalciferol (VITAMIN Take 50,000 0 D2) 50,000 unit Units by capsuleIndications: mouth once a vitamin D deficiency week. 06/17/2019 Active insulin lispro (HUMALOG) Inject 5 10 mL 0 100 unit/mL injection Units 8 subcutaneousl y 3 (three) times daily with meals. 06/17/2019 Active sodium bicarbonate 650 MG Take 2 180 tablet 11 tablet tablets 8 (1,300 mg total) by mouth 3 (three) times daily. 06/17/2019 Active pregabalin (LYRICA) 200 Take 1 30 capsule 11 MG capsule capsule (200 8 mg total) by mouth daily. Max Daily Amount: 200 mg Active insulin glargine (LANTUS) Inject 30 10 mL 1 100 unit/mL injection Units 8 subcutaneousl y nightly Use as directed. 06/17/2018 Discontinued metFORMIN (GLUCOPHAGE) Take 1,000 mg 0 1000 MG by mouth 2 tabletIndications: type 2 (two) times diabetes mellitus daily with breakfast and dinner. 06/17/2018 Discontinued insulin lispro (HUMALOG) Inject 20-25 0 100 unit/mL Units injectionIndications: subcutaneousl type 1 diabetes mellitus, y 3 (three) follow sliding scale times daily with meals. 06/17/2018 Discontinued insulin detemir U-100 Inject 30 0 (LEVEMIR) 100 unit/mL Units injectionIndications: subcutaneousl type 1 diabetes mellitus y daily. Active Problems Problem Noted Date DKA (diabetic ketoacidoses) 06/14/2018 Essential hypertension 06/14/2018 Type 2 diabetes mellitus, with long-term current use of insulin 06/14/2018 Encounters Care Team Description Date Type Specialty Nickolas Preciado MD Chatterjee, Subhasis, MD Casar, Mamadou Moreira MD Diabetic ketoacidosis without coma associated with type 1 diabetes mellitus (HCC) (Primary Dx); Essential hypertension; Type 2 diabetes mellitus without complication, with long-term current use of insulin (HCC); Diabetic ketoacidosis without coma associated with type 2 diabetes mellitus (HCC); Type 2 diabetes mellitus treated with insulin (HCC); Metabolic acidosis, normal anion gap (NAG); Hyponatremia 06/14/2018 Hospital Intensive Care - Encounter 06/17/2018 Nickolas Preciado MD transfer 06/14/2018 Telephone Pulmonology after 12/04/2017 Family History Medical History Relation Name Comments Diabetes Father Diabetes Mother Hyperlipidemia Mother Diabetes Sister Relation Name Status Comments Father Mother Alive Sister Social History Date Tobacco Use Types Packs/Day Years Used Current Every Day Smoker 1 30 Smokeless Tobacco: Never Used Tobacco Cessation: Ready to Quit: Yes; Counseling Given: Yes Comments: offered smoking cessation info Alcohol Use Drinks/Week oz/Week Comments No Alcohol Habits Answer Date Recorded How often do you have a drink containing alcohol? Never 06/14/2018 How many drinks containing alcohol do you have on Not asked a typical day when you are drinking? How often do you have six or more drinks on one Not asked occasion? Sex Assigned at Date Recorded Not on file Industry Job Start Date Occupation Not on file Not on file Not on file Travel End Travel History Travel Start No recent travel history available. Last Filed Vital Signs Time Taken Vital Sign Reading 06/17/2018 2:02 PM [employer]BLE MECHANIC HELPER Blood Pressure 140/75 06/17/2018 2:19 PM [employer]BLE MECHANIC HELPER Pulse 73 06/17/2018 12:00 PM [employer]BLE MECHANIC HELPER Temperature 36.7 C (98 F) 06/17/2018 2:19 PM [employer]BLE MECHANIC HELPER Respiratory Rate 30 06/17/2018 2:19 PM MARBLE MECHANIC HELPER Oxygen Saturation 97% - Inhaled Oxygen - Concentration 06/17/2018 6:00 AM MARBLE MECHANIC HELPER Weight 64.8 kg (142 lb 13.7 oz) 06/14/2018 7:45 AM MARBLE MECHANIC HELPER Height 162.6 cm (5' 4") 06/17/2018 6:00 AM MARBLE MECHANIC HELPER Body Mass Index 24.52 Plan of Treatment Not on file Procedures Comments Procedure Name Priority Date/Time Associated Diagnosis RHYTHM STRIP - SCAN 06/24/2018 1:00 PM MARBLE MECHANIC HELPER POCT-GLUCOSE METER Routine 06/17/2018 2:33 PM [employer]BLE MECHANIC HELPER POCT-GLUCOSE METER Routine 06/17/2018 1:46 PM MARBLE MECHANIC HELPER POCT-GLUCOSE METER Routine 06/17/2018 12:39 PM MARBLE MECHANIC HELPER POCT-GLUCOSE METER Routine 06/17/2018 9:35 AM MARBLE MECHANIC HELPER CBC W/PLT COUNT & AUTO Routine 06/17/2018 DIFFERENTIAL 4:38 AM MARBLE MECHANIC HELPER CBC W/PLT COUNT & AUTO Routine 06/17/2018 DIFFERENTIAL 4:38 AM MARBLE MECHANIC HELPER PHOSPHORUS Routine 06/17/2018 4:38 AM MARBLE MECHANIC HELPER MAGNESIUM Routine 06/17/2018 4:38 AM MARBLE MECHANIC HELPER BASIC METABOLIC PANEL (7) Routine 06/17/2018 4:38 AM MARBLE MECHANIC HELPER PHOSPHORUS Routine 06/17/2018 1:16 AM MARBLE MECHANIC HELPER MAGNESIUM Routine 06/17/2018 1:16 AM MARBLE MECHANIC HELPER BASIC METABOLIC PANEL (7) Routine 06/17/2018 1:16 AM MARBLE MECHANIC HELPER POCT-GLUCOSE METER Routine 06/17/2018 12:52 AM MARBLE MECHANIC HELPER PHOSPHORUS Routine 06/16/2018 8:31 PM MARBLE MECHANIC HELPER MAGNESIUM Routine 06/16/2018 8:31 PM MARBLE MECHANIC HELPER BASIC METABOLIC PANEL (7) Routine 06/16/2018 8:31 PM MARBLE MECHANIC HELPER POCT-GLUCOSE METER Routine 06/16/2018 7:31 PM MARBLE MECHANIC HELPER POCT-GLUCOSE METER Routine 06/16/2018 6:18 PM MARBLE MECHANIC HELPER POCT-GLUCOSE METER Routine 06/16/2018 5:25 PM MARBLE MECHANIC HELPER PHOSPHORUS Routine 06/16/2018 4:31 PM MARBLE MECHANIC HELPER MAGNESIUM Routine 06/16/2018 4:31 PM MARBLE MECHANIC HELPER BASIC METABOLIC PANEL (7) Routine 06/16/2018 4:31 PM MARBLE MECHANIC HELPER POCT-GLUCOSE METER Routine 06/16/2018 4:25 PM MARBLE MECHANIC HELPER POCT-GLUCOSE METER Routine 06/16/2018 3:04 PM MARBLE MECHANIC HELPER POCT-GLUCOSE METER Routine 06/16/2018 2:22 PM MARBLE MECHANIC HELPER POCT-GLUCOSE METER Routine 06/16/2018 1:13 PM MARBLE MECHANIC HELPER PHOSPHORUS Routine 06/16/2018 12:11 PM MARBLE MECHANIC HELPER MAGNESIUM Routine 06/16/2018 12:11 PM MARBLE MECHANIC HELPER BASIC METABOLIC PANEL (7) Routine 06/16/2018 12:11 PM MARBLE MECHANIC HELPER POCT-GLUCOSE METER Routine 06/16/2018 12:03 PM MARBLE MECHANIC HELPER POCT-GLUCOSE METER Routine 06/16/2018 11:06 AM MARBLE MECHANIC HELPER POCT-GLUCOSE METER Routine 06/16/2018 10:02 AM MARBLE MECHANIC HELPER POCT-GLUCOSE METER Routine 06/16/2018 9:17 AM MARBLE MECHANIC HELPER CBC W/PLT COUNT & AUTO Routine 06/16/2018 DIFFERENTIAL 8:26 AM MARBLE MECHANIC HELPER PHOSPHORUS Routine 06/16/2018 8:26 AM MARBLE MECHANIC HELPER MAGNESIUM Routine 06/16/2018 8:26 AM MARBLE MECHANIC HELPER BASIC METABOLIC PANEL (7) Routine 06/16/2018 8:26 AM MARBLE MECHANIC HELPER CBC W/PLT COUNT & AUTO Routine 06/16/2018 DIFFERENTIAL 8:26 AM MARBLE MECHANIC HELPER POCT-GLUCOSE METER Routine 06/16/2018 8:05 AM MARBLE MECHANIC HELPER POCT-GLUCOSE METER Routine 06/16/2018 7:10 AM MARBLE MECHANIC HELPER POCT-GLUCOSE METER Routine 06/16/2018 6:20 AM MARBLE MECHANIC HELPER POCT-GLUCOSE METER Routine 06/16/2018 5:19 AM MARBLE MECHANIC HELPER FERRITIN Routine 06/16/2018 4:16 AM MARBLE MECHANIC HELPER IRON, TIBC, % SAT. Routine 06/16/2018 (WITHOUT FERRITIN) 4:16 AM MARBLE MECHANIC HELPER PHOSPHORUS Routine 06/16/2018 4:16 AM MARBLE MECHANIC HELPER MAGNESIUM Routine 06/16/2018 4:16 AM MARBLE MECHANIC HELPER BASIC METABOLIC PANEL (7) Routine 06/16/2018 4:16 AM MARBLE MECHANIC HELPER POCT-GLUCOSE METER Routine 06/16/2018 4:14 AM MARBLE MECHANIC HELPER POCT-GLUCOSE METER Routine 06/16/2018 2:54 AM MARBLE MECHANIC HELPER POCT-GLUCOSE METER Routine 06/16/2018 2:12 AM MARBLE MECHANIC HELPER POCT-GLUCOSE METER Routine 06/16/2018 1:41 AM MARBLE MECHANIC HELPER POCT-GLUCOSE METER Routine 06/16/2018 12:46 AM MARBLE MECHANIC HELPER PHOSPHORUS Routine 06/15/2018 11:37 PM MARBLE MECHANIC HELPER MAGNESIUM Routine 06/15/2018 11:37 PM MARBLE MECHANIC HELPER BASIC METABOLIC PANEL (7) Routine 06/15/2018 11:37 PM MARBLE MECHANIC HELPER POCT-GLUCOSE METER Routine 06/15/2018 11:23 PM MARBLE MECHANIC HELPER POCT-GLUCOSE METER Routine 06/15/2018 10:16 PM MARBLE MECHANIC HELPER POCT-GLUCOSE METER Routine 06/15/2018 9:42 PM MARBLE MECHANIC HELPER POCT-GLUCOSE METER Routine 06/15/2018 9:07 PM MARBLE MECHANIC HELPER POCT-GLUCOSE METER Routine 06/15/2018 8:07 PM MARBLE MECHANIC HELPER PHOSPHORUS Routine 06/15/2018 7:43 PM MARBLE MECHANIC HELPER MAGNESIUM Routine 06/15/2018 7:43 PM MARBLE MECHANIC HELPER BASIC METABOLIC PANEL (7) Routine 06/15/2018 7:43 PM MARBLE MECHANIC HELPER POCT-GLUCOSE METER Routine 06/15/2018 7:03 PM MARBLE MECHANIC HELPER POCT-GLUCOSE METER Routine 06/15/2018 6:16 PM MARBLE MECHANIC HELPER POCT-GLUCOSE METER Routine 06/15/2018 5:16 PM MARBLE MECHANIC HELPER POCT-GLUCOSE METER Routine 06/15/2018 4:29 PM MARBLE MECHANIC HELPER POCT-GLUCOSE METER Routine 06/15/2018 3:18 PM MARBLE MECHANIC HELPER PHOSPHORUS Routine 06/15/2018 3:08 PM MARBLE MECHANIC HELPER MAGNESIUM Routine 06/15/2018 3:08 PM MARBLE MECHANIC HELPER BASIC METABOLIC PANEL (7) Routine 06/15/2018 3:08 PM MARBLE MECHANIC HELPER CREATININE, RANDOM URINE Routine 06/15/2018 3:07 PM MARBLE MECHANIC HELPER UREA NITROGEN, RANDOM Routine 06/15/2018 URINE 3:07 PM MARBLE MECHANIC HELPER SODIUM, RANDOM URINE Routine 06/15/2018 3:07 PM MARBLE MECHANIC HELPER POCT-GLUCOSE METER Routine 06/15/2018 2:13 PM MARBLE MECHANIC HELPER POCT-GLUCOSE METER Routine 06/15/2018 1:17 PM MARBLE MECHANIC HELPER PHOSPHORUS Routine 06/15/2018 12:42 PM MARBLE MECHANIC HELPER MAGNESIUM Routine 06/15/2018 12:42 PM MARBLE MECHANIC HELPER BASIC METABOLIC PANEL (7) Routine 06/15/2018 12:42 PM MARBLE MECHANIC HELPER POCT-GLUCOSE METER Routine 06/15/2018 11:53 AM MARBLE MECHANIC HELPER POCT-GLUCOSE METER Routine 06/15/2018 10:15 AM MARBLE MECHANIC HELPER POCT-GLUCOSE METER Routine 06/15/2018 9:21 AM MARBLE MECHANIC HELPER PHOSPHORUS Routine 06/15/2018 8:54 AM MARBLE MECHANIC HELPER MAGNESIUM Routine 06/15/2018 8:54 AM MARBLE MECHANIC HELPER BASIC METABOLIC PANEL (7) Routine 06/15/2018 8:54 AM MARBLE MECHANIC HELPER POCT-GLUCOSE METER Routine 06/15/2018 8:17 AM MARBLE MECHANIC HELPER POCT-GLUCOSE METER Routine 06/15/2018 7:30 AM MARBLE MECHANIC HELPER POCT-GLUCOSE METER Routine 06/15/2018 6:20 AM MARBLE MECHANIC HELPER POCT-GLUCOSE METER Routine 06/15/2018 5:07 AM MARBLE MECHANIC HELPER TRIGLYCERIDES Routine 06/15/2018 5:04 AM MARBLE MECHANIC HELPER ISLET CELL AB SCR Routine 06/15/2018 5:04 AM MARBLE MECHANIC HELPER ORLY-65 Routine 06/15/2018 5:04 AM MARBLE MECHANIC HELPER PHOSPHORUS Routine 06/15/2018 5:04 AM MARBLE MECHANIC HELPER MAGNESIUM Routine 06/15/2018 5:04 AM MARBLE MECHANIC HELPER BASIC METABOLIC PANEL (7) Routine 06/15/2018 5:04 AM MARBLE MECHANIC HELPER POCT-GLUCOSE METER Routine 06/15/2018 3:13 AM MARBLE MECHANIC HELPER POCT-GLUCOSE METER Routine 06/15/2018 2:31 AM MARBLE MECHANIC HELPER POCT-GLUCOSE METER Routine 06/15/2018 1:37 AM MARBLE MECHANIC HELPER PHOSPHORUS Routine 06/15/2018 12:19 AM MARBLE MECHANIC HELPER MAGNESIUM Routine 06/15/2018 12:19 AM MARBLE MECHANIC HELPER BASIC METABOLIC PANEL (7) Routine 06/15/2018 12:19 AM MARBLE MECHANIC HELPER POCT-GLUCOSE METER Routine 06/15/2018 12:08 AM MARBLE MECHANIC HELPER POCT-GLUCOSE METER Routine 06/14/2018 10:32 PM MARBLE MECHANIC HELPER POCT-GLUCOSE METER Routine 06/14/2018 9:25 PM MARBLE MECHANIC HELPER COMPREHENSIVE METABOLIC STAT 06/14/2018 PANEL 8:35 PM MARBLE MECHANIC HELPER MAGNESIUM Routine 06/14/2018 8:35 PM MARBLE MECHANIC HELPER PHOSPHORUS Routine 06/14/2018 8:35 PM MARBLE MECHANIC HELPER POCT-GLUCOSE METER Routine 06/14/2018 8:02 PM MARBLE MECHANIC HELPER POCT-GLUCOSE METER Routine 06/14/2018 6:55 PM MARBLE MECHANIC HELPER POCT-GLUCOSE METER Routine 06/14/2018 5:57 PM MARBLE MECHANIC HELPER POCT-GLUCOSE METER Routine 06/14/2018 5:12 PM MARBLE MECHANIC HELPER MAGNESIUM Routine 06/14/2018 3:59 PM MARBLE MECHANIC HELPER BASIC METABOLIC PANEL (7) Routine 06/14/2018 3:59 PM MARBLE MECHANIC HELPER POCT-GLUCOSE METER Routine 06/14/2018 3:57 PM MARBLE MECHANIC HELPER POCT-GLUCOSE METER Routine 06/14/2018 3:00 PM MARBLE MECHANIC HELPER URINALYSIS W/ MICROSCOPIC Routine 06/14/2018 2:57 PM MARBLE MECHANIC HELPER GLUCOSE Routine 06/14/2018 2:16 PM MARBLE MECHANIC HELPER POCT-GLUCOSE METER Routine 06/14/2018 2:01 PM MARBLE MECHANIC HELPER POCT-GLUCOSE METER Routine 06/14/2018 1:28 PM MARBLE MECHANIC HELPER POCT-GLUCOSE METER Routine 06/14/2018 12:25 PM MARBLE MECHANIC HELPER PHOSPHORUS Routine 06/14/2018 12:05 PM MARBLE MECHANIC HELPER MAGNESIUM Routine 06/14/2018 12:05 PM MARBLE MECHANIC HELPER BASIC METABOLIC PANEL (7) Routine 06/14/2018 12:05 PM MARBLE MECHANIC HELPER GLUCOSE Routine 06/14/2018 12:05 PM MARBLE MECHANIC HELPER POCT-GLUCOSE METER Routine 06/14/2018 12:02 PM MARBLE MECHANIC HELPER POCT-GLUCOSE METER Routine 06/14/2018 11:10 AM MARBLE MECHANIC HELPER BLOOD GAS, VENOUS Routine 06/14/2018 10:20 AM MARBLE MECHANIC HELPER POTASSIUM Routine 06/14/2018 10:20 AM MARBLE MECHANIC HELPER GLUCOSE Routine 06/14/2018 10:20 AM MARBLE MECHANIC HELPER POCT-GLUCOSE METER Routine 06/14/2018 10:11 AM MARBLE MECHANIC HELPER KETONE, BLOOD STAT 06/14/2018 9:26 AM MARBLE MECHANIC HELPER POCT-GLUCOSE METER Routine 06/14/2018 9:14 AM MARBLE MECHANIC HELPER BLOOD GAS, VENOUS Routine 06/14/2018 9:07 AM MARBLE MECHANIC HELPER LACTIC ACID, VENOUS Routine 06/14/2018 8:22 AM MARBLE MECHANIC HELPER CBC W/PLT COUNT & AUTO STAT 06/14/2018 DIFFERENTIAL 8:20 AM MARBLE MECHANIC HELPER TROPONIN I Routine 06/14/2018 8:20 AM MARBLE MECHANIC HELPER HEMOGLOBIN A1C Routine 06/14/2018 8:20 AM MARBLE MECHANIC HELPER TSH/FREE T4 IF INDICATED Routine 06/14/2018 8:20 AM MARBLE MECHANIC HELPER LIPASE Routine 06/14/2018 8:20 AM MARBLE MECHANIC HELPER MAGNESIUM STAT 06/14/2018 8:20 AM MARBLE MECHANIC HELPER PHOSPHORUS STAT 06/14/2018 8:20 AM MARBLE MECHANIC HELPER BASIC METABOLIC PANEL (7) STAT 06/14/2018 8:20 AM MARBLE MECHANIC HELPER CBC W/PLT COUNT & AUTO STAT 06/14/2018 DIFFERENTIAL 8:20 AM MARBLE MECHANIC HELPER GLUCOSE Routine 06/14/2018 8:20 AM MARBLE MECHANIC HELPER POCT-GLUCOSE METER Routine 06/14/2018 8:04 AM MARBLE MECHANIC HELPER POCT-GLUCOSE METER Routine 06/14/2018 7:40 AM MARBLE MECHANIC HELPER after 12/04/2017 Results * RHYTHM STRIP - SCAN (06/24/2018 1:00 PM MARBLE MECHANIC HELPER) Narrative Performed At * POC-Glucose meter (06/17/2018 2:33 PM MARBLE MECHANIC HELPER) Only the most recent of 65 results within the time period is included. POC-Glucose Meter 135 (H)Comment: TESTED AT 70 - 110 mg/dL [facility] BSC [id number] Specimen Blood Performing Organization Address City/State/Zipcode Phone Number [place] [phone] [place] [address] MED[facility]ENTER * CBC with platelet count + automated diff (06/17/2018 4:38 AM MARBLE MECHANIC HELPER) Only the most recent of 3 results within the time period is included. WBC 7.6 3.5 - 10.5 K/L [facility] RBC 2.55 (L) 3.93 - 5.22 M/L [facility] Hemoglobin 8.3 (L) 11.2 - 15.7 GM/DL [facility] Hematocrit 25.6 (L) 34.1 - 44.9 % [facility] MCV 100.4 (H) 79.4 - 94.8 fL [facility] MCH 32.5 (H) 25.6 - 32.2 pg [facility] MCHC 32.4 32.2 - 35.5 GM/DL [facility] RDW 13.5 11.7 - 14.4 % [facility] Platelets 148 (L) 150 - 450 K/CU MM [facility] MPV 13.4 (H) 9.4 - 12.3 fL [facility] nRBC 0 0 - 0 /100 WBC [facility] % Neutros 56 % [facility] % Lymphs 34 % [facility] % Monos 5 % [facility] % Eos 4 % [facility] % Baso 1 % [facility] # Neutros 4.22 1.56 - 6.13 K/L [facility] # Lymphs 2.58 1.18 - 3.74 K/L [facility] # Monos 0.38 (H) 0.24 - 0.36 K/L [facility] # Eos 0.28 0.04 - 0.36 K/L [facility] # Baso 0.06 0.01 - 0.08 K/L [facility] Immature 0 0 - 1 % [facility] Granulocytes-Relative [facility] Specimen Blood Performing Organization Address City/State/Zipcode Phone Number [facility] [address] [place] [address] MEDICAL CENTER * Phosphorus (06/17/2018 4:38 AM MARBLE MECHANIC HELPER) Only the most recent of 17 results within the time period is included. Phosphorus 3.6Comment: Specimen slightly 2.3 - 4.7 mg/dL [facility] Specimen Blood Performing Organization Address [facility] Phone Number [address] * Magnesium (06/17/2018 4:38 AM MARBLE MECHANIC HELPER) Only the most recent of 18 results within the time period is included. Magnesium 2.1Comment: Specimen slightly 1.6 - 2.6 mg/dL [facility] Specimen Blood Performing Organization Address [facility] Phone Number [address] * Basic Metabolic Panel (06/17/2018 4:38 AM MARBLE MECHANIC HELPER) Only the most recent of 17 results within the time period is included. Sodium 135 (L) 136 - 145 meq/L [facility] Potassium 4.6Comment: Specimen slightly 3.5 - 5.1 meq/L [facility] Chloride 113 (H) 98 - 107 meq/L [facility] CO2 17 (L) 22 - 29 meq/L [facility] BUN 31 (H) 7 - 21 mg/dL [facility] Creatinine 1.59 (H)Comment: Specimen 0.57 - 1.25 mg/dL [facility] Glucose 200 (H) 70 - 105 mg/dL [facility] Calcium 7.0 (L) 8.4 - 10.2 mg/dL [facility] EGFR Comment: INSUFFICIENT CLINICAL mL/min/1.[address] [facility] DATA TO CALCULATE ESTIMATED [facility] GFR. Specimen Blood Performing Organization Address City/State/[facility] Services[facility] Phone Number [phone] [place] [address] * Iron, TIBC, % sat. (without ferritin) (06/16/2018 4:16 AM MARBLE MECHANIC HELPER) Iron 60 40 - 160 ug/dL [facility] TIBC 196 (L) 250 - 450 ug/dL [facility] Iron % Saturation 31 20 - 55 % [facility] Specimen Blood Performing Organization Address [facility] Services[facility] Phone Number [phone] [place] [address] * Ferritin (06/16/2018 4:16 AM MARBLE MECHANIC HELPER) Ferritin 101 5 - 275 ng/mL [facility] Specimen Blood Performing Organization Address [facility] Phone Number [address] * Urea Nitrogen, random urine (06/15/2018 3:07 PM MARBLE MECHANIC HELPER) Urea Nitrogen, Ur 239 mg/dL [facility] Specimen Urine Narrative Performed At Reference Range: No Normals [facility] Performing Organization Address [facility] Phone Number [address] * Sodium, random urine (06/15/2018 3:07 PM MARBLE MECHANIC HELPER) Sodium Urine 95 meq/L [facility] Specimen Urine Narrative Performed At Reference Range: No Normals [facility] Performing Organization Address [facility] Phone Number [address] * Creatinine, random urine (06/15/2018 3:07 PM MARBLE MECHANIC HELPER) Creatinine, Ur 29.3 mg/dL [facility] Specimen Urine Narrative Performed At Reference Range: No Normals [facility] Performing Organization Address City/[facility]/Zipcode Phone Number [place] [phone] [place], [place] [address] [phone] * ORLY-65 (06/15/2018 5:04 AM MARBLE MECHANIC HELPER) ORLY-65 >250 (H) <5 IU/mL [facility] Comment: INC[facility]PORATED This test was performed using the GAD65 PEBBLES method. New method, PEBBLES, is standardized against the International reference preparation 97/550, is reported in International Units/mL (IU/mL) and a new reference range was implemented. Specimen Blood Narrative Performed At Performing Lab [facility] [address] [place] [id number] [place], [place] [id number] Tanisha Chow MD, PhD, SERVANDO Performing Organization Address [facility] Phone Number [facility] [address] [place], [address] [facility] [id number] * Islet Cell AB Screen (06/15/2018 5:04 AM MARBLE MECHANIC HELPER) Islet Cell Ab Profile Refer to individual Islet Cell [facility] Ab and/or Islet Cell Ab [facility] results. Specimen Blood Narrative Performed At Performing Organization Address [facility] Phone Number [facility] [address] [place], [address] [facility] [phone] * Triglycerides (06/15/2018 5:04 AM MARBLE MECHANIC HELPER) Triglycerides 170Comment: Specimen slightly mg/dL [facility] Specimen Blood Narrative Performed At [facility] Low Risk<150 [facility] Borderline Risk 150-199 High [id number] Very High Risk >=500 Performing Organization Address [facility]/Zipcode Phone Number [address] [address] [phone] [place] [address] * Comprehensive metabolic panel (06/14/2018 8:35 PM MARBLE MECHANIC HELPER) Protein, Total 5.8 (L)Comment: Specimen 6.0 - 8.3 gm/dL [facility] moderately [facility] Albumin 2.6 (L)Comment: Specimen 3.5 - 5.0 g/dL [facility] moderately hemolyzed [facility] Alkaline Phosphatase 96 40 - 150 U/L [facility] Total Bilirubin 0.1 (L)Comment: Specimen 0.2 - 1.2 mg/dL [facility] hemolyzed [facility] Sodium 137 136 - 145 meq/L [facility] Potassium 4.8Comment: Specimen 3.5 - 5.1 meq/L [facility] moderately hemolyzed [facility] Chloride 118 (H) 98 - 107 meq/L [facility] CO2 14 (L) 22 - 29 meq/L [facility] BUN 28 (H) 7 - 21 mg/dL [facility] Creatinine 1.57 (H)Comment: Specimen 0.57 - 1.25 mg/dL [facility] moderately hemolyzed [facility] Glucose 111 (H) 70 - 105 mg/dL [facility] Calcium 7.7 (L) 8.4 - 10.2 mg/dL [facility] AST 21Comment: Specimen moderately 5 - 34 U/L [facility]: Spec[facility] moderately 6 - 55 [facility] EGFR Comment: INSUFFICIENT CLINICAL mL/min/1.[address] [facility] DATA TO CALCULATE ESTIMATED [facility] GFR. Specimen Blood Performing Organization Address City/State/Zipcode Phone Number [facility] [address] [place] [address] MEDICAL CENTER * Urinalysis w/ Microscopic (06/14/2018 2:57 PM [employer]) Color, UA Colorless [facility] [facility] Clarity, UA Clear [facility] Specific [place], UA 1.006 1.001 - 1.035 [facility] pH, UA 6.0 5.0 - 8.0 [facility] Protein, UA 100 mg/dL (A) Negative [facility] Glucose, UA 500 mg/dL (A) Negative [facility] Ketones, UA Negative Negative [facility] Bilirubin, UA Negative Negative [facility] Blood, UA Negative Negative [facility] Nitrite, UA Negative Negative [facility] Leukocytes, UA Negative Negative [facility] Urobilinogen, UA 0.2 0.2 - 1.0 mg/dL [facility] RBC, UA <1 /HPF [facility] WBC, UA 1 /HPF [facility] Bacteria, UA Rare [facility] Squam Epithel, UA 2 /HPF [facility] Specimen Source Urine, Voided [facility] Specimen Urine Performing Organization Address City/State/Zipcode Phone Number [place] [phone] * Glucose, serum (06/14/2018 2:16 PM [employer]) Only the most recent of 4 results within the time period is included. Glucose 187 (H) 70 - 105 mg/dL [facility] Specimen Blood Narrative Performed At If last glucose was less than 500, may do bedside glucose instead of serum [facility] glucose. [facility] Performing Organization Address City/State/[place] [address] [facility] * Potassium (06/14/2018 10:20 AM [employer]) Potassium 4.1 3.5 - 5.1 meq/L [facility] Specimen Blood Narrative Performed At If last glucose was less than 500, may do bedside glucose instead of serum [facility] glucose. [facility] Performing Organization Address City/[facility] Phone Number [address] [phone] [facility] * Blood gas, venous (06/14/2018 10:20 AM [employer]) Only the most recent of 2 results within the time period is included. pH, Anton 7.25 (L) 7.32 - 7.42 [facility] pCO2, Anton 41 41 - 51 mmHg [facility] pO2, Anton 24 (L) 25 - 40 mmHg [facility] O2 Sat, Anton 35.6 (L) 40.0 - 70.0 % [facility] HCO3, Anton 17 (L) 21 - 29 mmol/L [facility] Base Excess, Anton -9.4 (L) -2.0 - 3.0 mmol/L [facility] Patient Temperature 36.7 C [facility] FIO2 100.0 % [facility] Specimen Blood Performing Organization Address [facility] Services[facility] Phone Number [address] [address] [facility] * Ketone, blood (06/14/2018 9:26 AM [employer]) Ketones, Blood 0.1 <0.4 mmol/L [facility] Specimen Blood Performing Organization Address City/[facility]/Zipcode Phone Number [address] [address] [facility] * Lactic acid, venous, whole blood (06/14/2018 8:22 AM [employer]) Lactate, Venous 3.0 (H)Comment: Specimen 0.5 - 2.2 mmol/L [facility] slightly hemolyzed [facility] Specimen Blood Performing Organization Address City/[facility]/Zipcode Phone Number [address] [address] [phone] * TSH/Free T4 If Indicated (06/14/2018 8:20 AM [employer]) TSH 3.12 0.35 - 4.94 uIU/mL [facility] Specimen Blood Performing Organization Address City/[facility] Services[facility] Phone Number [address] [phone] [phone] [place] [address] * Troponin I (06/14/2018 8:20 AM [employer]) Troponin I 0.01 0.00 - 0.03 ng/mL [facility] Specimen Blood Narrative Performed At If last glucose was less than 500, may do bedside glucose instead of serum [facility] glucose[facility] Performing Organization Address [facility] Services[facility] Phone Number [address] * Lipase (06/14/2018 8:20 AM [employer]) Lipase 154 (H) 8 - 78 U/L [facility] Specimen Blood Narrative Performed At If last glucose was less than 500, may do bedside glucose instead of serum [facility] glucose. [facility] Performing Organization Address City/[facility] Phone Number [address] [phone] [place] [address] * Hemoglobin A1c (06/14/2018 8:20 AM [employer]) Hemoglobin A1C 12.2 (H) 4.3 - 6.1 % [facility] Specimen Blood Performing Organization Address City/[facility] Services[facility] Phone Number [address] [address] [phone] [place] [address] after 12/04/2017
--- NOTE | 2018-12-05 17:25 | Diagnostic Imaging Report ---
EXAMINATION: CHEST 2 VIEWS INDICATION: Cough ^COUGH ^[id number] ^1700 COMPARISON: 06/14/2018 FINDINGS: TUBES and LINES: None. LUNGS: Lungs are well inflated. Perihilar peribronchial hazy opacity could be due to bronchitis There is no evidence of pneumonia or pulmonary edema. PLEURA: No pleural effusion or pneumothorax. HEART AND MEDIASTINUM: The cardiomediastinal silhouette is unremarkable. BONES AND SOFT TISSUES: No acute osseous lesion. Soft tissues are unremarkable. UPPER ABDOMEN: No free air under the diaphragm. IMPRESSION: Perihilar peribronchial hazy opacity could be due to bronchitis Signed by: Dr. Cortez Baker M.D. on 12/05/2018 5:22 PM
[2018-12-05 17:33] LABS: BASOPHILS % 0.5 % (0.0-1.0); EOSINOPHILS # (AUTO) 0.2 (0.0-0.4); EOSINOPHILS % 2.7 % (0.0-6.0); HEMOGLOBIN 7.9 g/dL (12.0-16.0); LYMPHOCYTES # (AUTO) 1.7 (1.0-3.2); MEAN CORPUSCULAR HEMOGLOBIN 31.1 pg (28-32); MEAN CORPUSCULAR HGB CONC 32.9 g/dL (31-35); MEAN CORPUSCULAR VOLUME 94.5 fL (81-99); MONOCYTES # (AUTO) 0.4 (0.2-0.8); MONOCYTES % 4.5 % (4.4-11.3); NEUTROPHILS # (AUTO) 5.8 (2.1-6.9); NEUTROPHILS % 70.1 % (38.7-80.0); PLATELET COUNT 219 x10e3/uL (140-360); RED BLOOD COUNT 2.54 x10e6/uL (3.6-5.1); RED CELL DISTRIBUTION WIDTH 13.8 % (11.7-14.4)
[2018-12-05 17:53] LABS: ALBUMIN/GLOBULIN RATIO 0.6 (0.8-2.0); ANION GAP 11.9 mmol/L (8-16); CALCIUM 8.4 mg/dL (8.4-10.2); CREATININE, SERUM 2.11 mg/dL (0.57-1.11); POTASSIUM 3.9 mmol/L (3.5-5.1)
[2018-12-05] MEDS ORDERED: SODIUM CHLORIDE 0.9% 250ML 250 ML IV ONE (18:45)
[2018-12-05] MEDS ORDERED: ONDANSETRON HCL INJ 2MG/ML 2ML 2 MG/ML VIAL IV PRN (18:45)
[2018-12-05 19:06] LABS: CREATINE KINASE 202 IU/L (29-168)
--- NOTE | 2018-12-05 19:33 | NUR ---
left upper arm/ac 20g iv started, patent, attempt# 1 succesful, type and screen drawn, flushing intact, patient states no pain, educated patient on iv infiltration due to patients long history of collapsing veins.
--- OUTSIDE RECORDS SUMMARY | 2018-12-05 19:42 | XMS REPORT | Clinical Summary ---
Author Author [facility] Address Unknown Phone Unavailable Care Team Providers Care Curriculum Assistant Principal Name Role Phone Carmelo De Paz PCP [...] Taken Vital Sign Reading 06/17/2018 2:02 PM TAR POT WORKER Blood Pressure 140/75 06/17/2018 2:19 PM TAR POT WORKER Pulse 73 06/17/2018 12:00 PM TAR POT WORKER Temperature 36.7 C (98 F) 06/17/2018 2:19 PM TAR POT WORKER Respiratory Rate 30 06/17/2018 2:19 PM TAR POT WORKER Oxygen Saturation 97% - Inhaled Oxygen - Concentration 06/17/2018 6:00 AM TAR POT WORKER Weight 64.8 kg (142 lb 13.7 oz) 06/14/2018 7:45 AM TAR POT WORKER Height 162.6 cm (5' 4") 06/17/2018 6:00 AM TAR POT WORKER Body Mass Index 24.52 Plan of Treatment Not on file Procedures Comments Procedure Name Priority Date/Time Associated Diagnosis RHYTHM STRIP - SCAN 06/24/2018 1:00 PM TAR POT WORKER POCT-GLUCOSE METER Routine 06/17/2018 2:33 PM TAR POT WORKER POCT-GLUCOSE METER Routine 06/17/2018 1:46 PM TAR POT WORKER POCT-GLUCOSE METER Routine 06/17/2018 12:39 PM TAR POT WORKER POCT-GLUCOSE METER Routine 06/17/2018 9:35 AM TAR POT WORKER CBC W/PLT COUNT & AUTO Routine 06/17/2018 DIFFERENTIAL 4:38 AM TAR POT WORKER CBC W/PLT COUNT & AUTO Routine 06/17/2018 DIFFERENTIAL 4:38 AM TAR POT WORKER PHOSPHORUS Routine 06/17/2018 4:38 AM TAR POT WORKER MAGNESIUM Routine 06/17/2018 4:38 AM TAR POT WORKER BASIC METABOLIC PANEL (7) Routine 06/17/2018 4:38 AM TAR POT WORKER PHOSPHORUS Routine 06/17/2018 1:16 AM TAR POT WORKER MAGNESIUM Routine 06/17/2018 1:16 AM TAR POT WORKER BASIC METABOLIC PANEL (7) Routine 06/17/2018 1:16 AM TAR POT WORKER POCT-GLUCOSE METER Routine 06/17/2018 12:52 AM TAR POT WORKER PHOSPHORUS Routine 06/16/2018 8:31 PM TAR POT WORKER MAGNESIUM Routine 06/16/2018 8:31 PM TAR POT WORKER BASIC METABOLIC PANEL (7) Routine 06/16/2018 8:31 PM TAR POT WORKER POCT-GLUCOSE METER Routine 06/16/2018 7:31 PM TAR POT WORKER POCT-GLUCOSE METER Routine 06/16/2018 6:18 PM TAR POT WORKER POCT-GLUCOSE METER Routine 06/16/2018 5:25 PM TAR POT WORKER PHOSPHORUS Routine 06/16/2018 4:31 PM TAR POT WORKER MAGNESIUM Routine 06/16/2018 4:31 PM TAR POT WORKER BASIC METABOLIC PANEL (7) Routine 06/16/2018 4:31 PM TAR POT WORKER POCT-GLUCOSE METER Routine 06/16/2018 4:25 PM TAR POT WORKER POCT-GLUCOSE METER Routine 06/16/2018 3:04 PM TAR POT WORKER POCT-GLUCOSE METER Routine 06/16/2018 2:22 PM TAR POT WORKER POCT-GLUCOSE METER Routine 06/16/2018 1:13 PM TAR POT WORKER PHOSPHORUS Routine 06/16/2018 12:11 PM TAR POT WORKER MAGNESIUM Routine 06/16/2018 12:11 PM TAR POT WORKER BASIC METABOLIC PANEL (7) Routine 06/16/2018 12:11 PM TAR POT WORKER POCT-GLUCOSE METER Routine 06/16/2018 12:03 PM TAR POT WORKER POCT-GLUCOSE METER Routine 06/16/2018 11:06 AM TAR POT WORKER POCT-GLUCOSE METER Routine 06/16/2018 10:02 AM TAR POT WORKER POCT-GLUCOSE METER Routine 06/16/2018 9:17 AM TAR POT WORKER CBC W/PLT COUNT & AUTO Routine 06/16/2018 DIFFERENTIAL 8:26 AM TAR POT WORKER PHOSPHORUS Routine 06/16/2018 8:26 AM TAR POT WORKER MAGNESIUM Routine 06/16/2018 8:26 AM TAR POT WORKER BASIC METABOLIC PANEL (7) Routine 06/16/2018 8:26 AM TAR POT WORKER CBC W/PLT COUNT & AUTO Routine 06/16/2018 DIFFERENTIAL 8:26 AM TAR POT WORKER POCT-GLUCOSE METER Routine 06/16/2018 8:05 AM TAR POT WORKER POCT-GLUCOSE METER Routine 06/16/2018 7:10 AM TAR POT WORKER POCT-GLUCOSE METER Routine 06/16/2018 6:20 AM TAR POT WORKER POCT-GLUCOSE METER Routine 06/16/2018 5:19 AM TAR POT WORKER FERRITIN Routine 06/16/2018 4:16 AM TAR POT WORKER IRON, TIBC, % SAT. Routine 06/16/2018 (WITHOUT FERRITIN) 4:16 AM TAR POT WORKER PHOSPHORUS Routine 06/16/2018 4:16 AM TAR POT WORKER MAGNESIUM Routine 06/16/2018 4:16 AM TAR POT WORKER BASIC METABOLIC PANEL (7) Routine 06/16/2018 4:16 AM TAR POT WORKER POCT-GLUCOSE METER Routine 06/16/2018 4:14 AM TAR POT WORKER POCT-GLUCOSE METER Routine 06/16/2018 2:54 AM TAR POT WORKER POCT-GLUCOSE METER Routine 06/16/2018 2:12 AM TAR POT WORKER POCT-GLUCOSE METER Routine 06/16/2018 1:41 AM TAR POT WORKER POCT-GLUCOSE METER Routine 06/16/2018 12:46 AM TAR POT WORKER PHOSPHORUS Routine 06/15/2018 11:37 PM TAR POT WORKER MAGNESIUM Routine 06/15/2018 11:37 PM TAR POT WORKER BASIC METABOLIC PANEL (7) Routine 06/15/2018 11:37 PM TAR POT WORKER POCT-GLUCOSE METER Routine 06/15/2018 11:23 PM TAR POT WORKER POCT-GLUCOSE METER Routine 06/15/2018 10:16 PM TAR POT WORKER POCT-GLUCOSE METER Routine 06/15/2018 9:42 PM TAR POT WORKER POCT-GLUCOSE METER Routine 06/15/2018 9:07 PM TAR POT WORKER POCT-GLUCOSE METER Routine 06/15/2018 8:07 PM TAR POT WORKER PHOSPHORUS Routine 06/15/2018 7:43 PM TAR POT WORKER MAGNESIUM Routine 06/15/2018 7:43 PM TAR POT WORKER BASIC METABOLIC PANEL (7) Routine 06/15/2018 7:43 PM TAR POT WORKER POCT-GLUCOSE METER Routine 06/15/2018 7:03 PM TAR POT WORKER POCT-GLUCOSE METER Routine 06/15/2018 6:16 PM TAR POT WORKER POCT-GLUCOSE METER Routine 06/15/2018 5:16 PM TAR POT WORKER POCT-GLUCOSE METER Routine 06/15/2018 4:29 PM TAR POT WORKER POCT-GLUCOSE METER Routine 06/15/2018 3:18 PM TAR POT WORKER PHOSPHORUS Routine 06/15/2018 3:08 PM TAR POT WORKER MAGNESIUM Routine 06/15/2018 3:08 PM TAR POT WORKER BASIC METABOLIC PANEL (7) Routine 06/15/2018 3:08 PM TAR POT WORKER CREATININE, RANDOM URINE Routine 06/15/2018 3:07 PM TAR POT WORKER UREA NITROGEN, RANDOM Routine 06/15/2018 URINE 3:07 PM TAR POT WORKER SODIUM, RANDOM URINE Routine 06/15/2018 3:07 PM TAR POT WORKER POCT-GLUCOSE METER Routine 06/15/2018 2:13 PM TAR POT WORKER POCT-GLUCOSE METER Routine 06/15/2018 1:17 PM TAR POT WORKER PHOSPHORUS Routine 06/15/2018 12:42 PM TAR POT WORKER MAGNESIUM Routine 06/15/2018 12:42 PM TAR POT WORKER BASIC METABOLIC PANEL (7) Routine 06/15/2018 12:42 PM TAR POT WORKER POCT-GLUCOSE METER Routine 06/15/2018 11:53 AM TAR POT WORKER POCT-GLUCOSE METER Routine 06/15/2018 10:15 AM TAR POT WORKER POCT-GLUCOSE METER Routine 06/15/2018 9:21 AM TAR POT WORKER PHOSPHORUS Routine 06/15/2018 8:54 AM TAR POT WORKER MAGNESIUM Routine 06/15/2018 8:54 AM TAR POT WORKER BASIC METABOLIC PANEL (7) Routine 06/15/2018 8:54 AM TAR POT WORKER POCT-GLUCOSE METER Routine 06/15/2018 8:17 AM TAR POT WORKER POCT-GLUCOSE METER Routine 06/15/2018 7:30 AM TAR POT WORKER POCT-GLUCOSE METER Routine 06/15/2018 6:20 AM TAR POT WORKER POCT-GLUCOSE METER Routine 06/15/2018 5:07 AM TAR POT WORKER TRIGLYCERIDES Routine 06/15/2018 5:04 AM TAR POT WORKER ISLET CELL AB SCR Routine 06/15/2018 5:04 AM TAR POT WORKER ORLY-65 Routine 06/15/2018 5:04 AM TAR POT WORKER PHOSPHORUS Routine 06/15/2018 5:04 AM TAR POT WORKER MAGNESIUM Routine 06/15/2018 5:04 AM TAR POT WORKER BASIC METABOLIC PANEL (7) Routine 06/15/2018 5:04 AM TAR POT WORKER POCT-GLUCOSE METER Routine 06/15/2018 3:13 AM TAR POT WORKER POCT-GLUCOSE METER Routine 06/15/2018 2:31 AM TAR POT WORKER POCT-GLUCOSE METER Routine 06/15/2018 1:37 AM TAR POT WORKER PHOSPHORUS Routine 06/15/2018 12:19 AM TAR POT WORKER MAGNESIUM Routine 06/15/2018 12:19 AM TAR POT WORKER BASIC METABOLIC PANEL (7) Routine 06/15/2018 12:19 AM TAR POT WORKER POCT-GLUCOSE METER Routine 06/15/2018 12:08 AM TAR POT WORKER POCT-GLUCOSE METER Routine 06/14/2018 10:32 PM TAR POT WORKER POCT-GLUCOSE METER Routine 06/14/2018 9:25 PM TAR POT WORKER COMPREHENSIVE METABOLIC STAT 06/14/2018 PANEL 8:35 PM TAR POT WORKER MAGNESIUM Routine 06/14/2018 8:35 PM TAR POT WORKER PHOSPHORUS Routine 06/14/2018 8:35 PM TAR POT WORKER POCT-GLUCOSE METER Routine 06/14/2018 8:02 PM TAR POT WORKER POCT-GLUCOSE METER Routine 06/14/2018 6:55 PM TAR POT WORKER POCT-GLUCOSE METER Routine 06/14/2018 5:57 PM TAR POT WORKER POCT-GLUCOSE METER Routine 06/14/2018 5:12 PM TAR POT WORKER MAGNESIUM Routine 06/14/2018 3:59 PM TAR POT WORKER BASIC METABOLIC PANEL (7) Routine 06/14/2018 3:59 PM TAR POT WORKER POCT-GLUCOSE METER Routine 06/14/2018 3:57 PM TAR POT WORKER POCT-GLUCOSE METER Routine 06/14/2018 3:00 PM TAR POT WORKER URINALYSIS W/ MICROSCOPIC Routine 06/14/2018 2:57 PM TAR POT WORKER GLUCOSE Routine 06/14/2018 2:16 PM TAR POT WORKER POCT-GLUCOSE METER Routine 06/14/2018 2:01 PM TAR POT WORKER POCT-GLUCOSE METER Routine 06/14/2018 1:28 PM TAR POT WORKER POCT-GLUCOSE METER Routine 06/14/2018 12:25 PM TAR POT WORKER PHOSPHORUS Routine 06/14/2018 12:05 PM TAR POT WORKER MAGNESIUM Routine 06/14/2018 12:05 PM TAR POT WORKER BASIC METABOLIC PANEL (7) Routine 06/14/2018 12:05 PM TAR POT WORKER GLUCOSE Routine 06/14/2018 12:05 PM TAR POT WORKER POCT-GLUCOSE METER Routine 06/14/2018 12:02 PM TAR POT WORKER POCT-GLUCOSE METER Routine 06/14/2018 11:10 AM TAR POT WORKER BLOOD GAS, VENOUS Routine 06/14/2018 10:20 AM TAR POT WORKER POTASSIUM Routine 06/14/2018 10:20 AM TAR POT WORKER GLUCOSE Routine 06/14/2018 10:20 AM TAR POT WORKER POCT-GLUCOSE METER Routine 06/14/2018 10:11 AM TAR POT WORKER KETONE, BLOOD STAT 06/14/2018 9:26 AM TAR POT WORKER POCT-GLUCOSE METER Routine 06/14/2018 9:14 AM TAR POT WORKER BLOOD GAS, VENOUS Routine 06/14/2018 9:07 AM TAR POT WORKER LACTIC ACID, VENOUS Routine 06/14/2018 8:22 AM TAR POT WORKER CBC W/PLT COUNT & AUTO STAT 06/14/2018 DIFFERENTIAL 8:20 AM TAR POT WORKER TROPONIN I Routine 06/14/2018 8:20 AM TAR POT WORKER HEMOGLOBIN A1C Routine 06/14/2018 8:20 AM TAR POT WORKER TSH/FREE T4 IF INDICATED Routine 06/14/2018 8:20 AM TAR POT WORKER LIPASE Routine 06/14/2018 8:20 AM TAR POT WORKER MAGNESIUM STAT 06/14/2018 8:20 AM TAR POT WORKER PHOSPHORUS STAT 06/14/2018 8:20 AM TAR POT WORKER BASIC METABOLIC PANEL (7) STAT 06/14/2018 8:20 AM TAR POT WORKER CBC W/PLT COUNT & AUTO STAT 06/14/2018 DIFFERENTIAL 8:20 AM TAR POT WORKER GLUCOSE Routine 06/14/2018 8:20 AM TAR POT WORKER POCT-GLUCOSE METER Routine 06/14/2018 8:04 AM TAR POT WORKER POCT-GLUCOSE METER Routine 06/14/2018 7:40 AM TAR POT WORKER after 12/04/2017 Results * RHYTHM STRIP - SCAN (06/24/2018 1:00 PM TAR POT WORKER) Narrative Performed At * POC-Glucose meter (06/17/2018 2:33 PM TAR POT WORKER) Only the most recent of 65 results within the time period is included. POC-Glucose Meter 135 (H)Comment: TESTED AT 70 - 110 mg/dL [facility] [address] [facility] [id number] Specimen Blood Performing Organization Address City/State/Zipcode Phone Number [place] [phone] [place] [address] MEDICAL CENTER * CBC with platelet count + automated diff (06/17/2018 4:38 AM TAR POT WORKER) Only the most recent of 3 results within the time period is included. WBC 7.6 3.5 - 10.5 K/L [facility] RBC 2.55 (L) 3.93 - 5.22 M/L [facility] Hemoglobin 8.3 (L) 11.2 - 15.7 GM/DL [facility] Hematocrit 25.6 (L) 34.1 - 44.9 % [facility] MCV 100.4 (H) 79.4 - 94.8 fL [facility] MCH 32.5 (H) 25.6 - 32.2 pg [facility] MCHC 32.4 32.2 - 35.5 GM/DL [facility] RDW 13.5 11.7 - 14.4 % [facility] Platelets 148 (L) 150 - 450 K/CU MM [facility] MPV 13.4 (H) 9.4 - 12.3 fL [facility] nRBC 0 0 - 0 /100 WBC [facility] % Neutros 56 % [facility] % Lymphs 34 % [facility] % Monos 5 % [facility] % Eos 4 % [facility] % Baso 1 % [facility] # Neutros 4.22 1.56 - 6.13 K/L [facility] # Lymphs 2.58 1.18 - 3.74 K/L [facility] # Monos 0.38 (H) 0.24 - 0.36 K/L [facility] # Eos 0.28 0.04 - 0.36 K/L [facility] # Baso 0.06 0.01 - 0.08 K/L [facility] Immature 0 0 - 1 % [facility] Granulocytes-Relative [facility] Specimen Blood Performing Organization Address City/State/Zipcode Phone Number [facility] [address] [place] [address] MEDICAL CENTER * Phosphorus (06/17/2018 4:38 AM TAR POT WORKER) Only the most recent of 17 results within the time period is included. Phosphorus 3.6Comment: Specimen slightly 2.3 - 4.7 mg/dL [facility] Specimen Blood Performing Organization Address [facility] Phone Number [address] * Magnesium (06/17/2018 4:38 AM TAR POT WORKER) Only the most recent of 18 results within the time period is included. Magnesium 2.1Comment: Specimen slightly 1.6 - 2.6 mg/dL [facility] Specimen Blood Performing Organization Address [facility] Phone Number [address] * Basic Metabolic Panel (06/17/2018 4:38 AM TAR POT WORKER) Only the most recent of 17 results within the time period is included. Sodium 135 (L) 136 - 145 meq/L [facility] Potassium 4.6Comment: Specimen slightly 3.5 - 5.1 meq/L [facility] Chloride 113 (H) 98 - 107 meq/L [facility] CO2 17 (L) 22 - 29 meq/L [facility] BUN 31 (H) 7 - 21 mg/dL [facility] Creatinine 1.59 (H)Comment: Specimen 0.57 - 1.25 mg/dL [facility] Glucose 200 (H) 70 - 105 mg/dL [facility] Calcium 7.0 (L) 8.4 - 10.2 mg/dL [facility] EGFR Comment: INSUFFICIENT CLINICAL mL/min/1.73 sq m [facility] DATA TO CALCULATE ESTIMATED [facility] GFR. Specimen Blood Performing Organization Address City/State/[facility] Phone Number [phone] [place] [address] * Iron, TIBC, % sat. (without ferritin) (06/16/2018 4:16 AM TAR POT WORKER) Iron 60 40 - 160 ug/dL [facility] TIBC 196 (L) 250 - 450 ug/dL [facility] Iron % Saturation 31 20 - 55 % [facility] Specimen Blood Performing Organization Address [facility] Phone Number [phone] [place] [address] * Ferritin (06/16/2018 4:16 AM TAR POT WORKER) Ferritin 101 5 - 275 ng/mL [facility] Specimen Blood Performing Organization Address [facility] Phone Number [address] * Urea Nitrogen, random urine (06/15/2018 3:07 PM TAR POT WORKER) Urea Nitrogen, Ur 239 mg/dL [facility] Specimen Urine Narrative Performed At Reference Range: No Normals [facility] Performing Organization Address [facility] Phone Number [address] * Sodium, random urine (06/15/2018 3:07 PM TAR POT WORKER) Sodium Urine 95 meq/L [facility] Specimen Urine Narrative Performed At Reference Range: No Normals [facility] Performing Organization Address [facility] Phone Number [address] * Creatinine, random urine (06/15/2018 3:07 PM TAR POT WORKER) Creatinine, Ur 29.3 mg/dL [facility] Specimen Urine Narrative Performed At Reference Range: No Normals [facility] Performing Organization Address City/[facility]/Zipcode Phone Number [place] [phone] [place], [place] [address] [phone] * ORLY-65 (06/15/2018 5:04 AM TAR POT WORKER) ORLY-65 >250 (H) <5 IU/mL [facility] Comment: INCORPORATED This test was performed using the GAD65 PEBBLES method. New method, PEBBLES, is standardized against the International reference preparation 97/550, is reported in International Units/mL (IU/mL) and a new reference range was implemented. Specimen Blood Narrative Performed At Performing Lab [facility] EZ [facility] [email or web address] [id number] [place], [place] [id number] Tanisha Chow MD, PhD, SERVANDO Performing Organization Address [facility] Phone Number [facility] [email or web address], [address] [email or web address] [id number] * Islet Cell AB Screen (06/15/2018 5:04 AM TAR POT WORKER) Islet Cell Ab Profile Refer to individual Islet Cell [facility] Ab and/or Islet Cell Ab Titer INCORPORATED results. Specimen Blood Narrative Performed At Performing Organization Address [facility] Phone Number [facility] [email or web address], [address] [email or web address] [address] * Triglycerides (06/15/2018 5:04 AM TAR POT WORKER) Triglycerides 170Comment: Specimen slightly mg/dL [facility] Specimen Blood Narrative Performed At TRIGLYCERIDE REFERENCE RANGE [facility] Low Risk<150 [facility] Borderline Risk 150-199 High [id number] Very High Risk >=500 Performing Organization Address [facility]/Zipcode Phone Number [address] [address] [phone] [place] [address] * Comprehensive metabolic panel (06/14/2018 8:35 PM TAR POT WORKER) Protein, Total 5.8 (L)Comment: Specimen 6.0 - 8.3 gm/dL [facility] moderately [facility] Albumin 2.6 (L)Comment: Specimen 3.5 - 5.0 g/dL [facility] moderately hemolyzed [facility] Alkaline Phosphatase 96 40 - 150 U/L [facility] Total Bilirubin 0.1 (L)Comment: Specimen 0.2 - 1.2 mg/dL [facility] hemolyzed [facility] Sodium 137 136 - 145 meq/L [facility] Potassium 4.8Comment: Specimen 3.5 - 5.1 meq/L [facility] moderately hemolyzed [facility] Chloride 118 (H) 98 - 107 meq/L [facility] CO2 14 (L) 22 - 29 meq/L [facility] BUN 28 (H) 7 - 21 mg/dL [facility] Creatinine 1.57 (H)Comment: Specimen 0.57 - 1.25 mg/dL [facility] moderately hemolyzed [facility] Glucose 111 (H) 70 - 105 mg/dL [facility] Calcium 7.7 (L) 8.4 - 10.2 mg/dL [facility] AST 21Comment: Specimen moderately 5 - 34 U/L [facility] ALT 11Comment: Specimen moderately 6 - 55 U/[facility] EGFR Comment: INSUFFICIENT CLINICAL mL/min/1.73 sq m [facility] DATA TO CALCULATE ESTIMATED [facility] GFR. Specimen Blood Performing Organization Address City/State/Zipcode Phone Number [facility] [address] [place] [address] MEDICAL CENTER * Urinalysis w/ Microscopic (06/14/2018 2:57 PM TAR POT WORKER) Color, UA Colorless [facility] Clarity, UA Clear [facility] Specific [place], UA 1.006 1.001 - 1.035 [facility] pH, UA 6.0 5.0 - 8.0 [facility] Protein, UA 100 mg/dL (A) Negative [facility] Glucose, UA 500 mg/dL (A) Negative [facility] Ketones, UA Negative Negative [facility] Bilirubin, UA Negative Negative [facility] Blood, UA Negative Negative [facility] Nitrite, UA Negative Negative [facility] Leukocytes, UA Negative Negative [facility] Urobilinogen, UA 0.2 0.2 - 1.0 mg/dL [facility] RBC, UA <1 /HPF [facility] WBC, UA 1 /HPF [facility] Bacteria, UA Rare [facility] Squam Epithel, UA 2 /HPF [facility] Specimen Source Urine, Voided [facility] Specimen Urine Performing Organization Address City/State/Zipcode Phone Number [place] [phone] * Glucose, serum (06/14/2018 2:16 PM TAR POT WORKER) Only the most recent of 4 results within the time period is included. Glucose 187 (H) 70 - 105 mg/dL [facility] Specimen Blood Narrative Performed At If last glucose was less than 500, may do bedside glucose instead of serum [facility] glucose. [facility] Performing Organization Address City/State/[place] [address] [facility] * Potassium (06/14/2018 10:20 AM TAR POT WORKER) Potassium 4.1 3.5 - 5.1 meq/L [facility] Specimen Blood Narrative Performed At If last glucose was less than 500, may do bedside glucose instead of serum [facility] glucose. [facility] Performing Organization Address City/[facility] Phone Number [address] [facility] * Blood gas, venous (06/14/2018 10:20 AM TAR POT WORKER) Only the most recent of 2 results within the time period is included. pH, Anton 7.25 (L) 7.32 - 7.42 [facility] pCO2, Anton 41 41 - 51 mmHg [facility] pO2, Anton 24 (L) 25 - 40 mmHg [facility] O2 Sat, Anton 35.6 (L) 40.0 - 70.0 % [facility] HCO3, Anton 17 (L) 21 - 29 mmol/L [facility] Base Excess, Anton -9.4 (L) -2.0 - 3.0 mmol/L [facility] Patient Temperature 36.7 C [facility] FIO2 100.0 % [facility] Specimen Blood Performing Organization Address [facility] Cliniccode Phone Number [phone] [facility] * Ketone, blood (06/14/2018 9:26 AM [employer]) Ketones, Blood 0.1 <0.4 mmol/L [facility] Specimen Blood Performing Organization Address City/[facility]/Zipcode Phone Number [phone] [facility] * Lactic acid, venous, whole blood (06/14/2018 8:22 AM [employer]) Lactate, Venous 3.0 (H)Comment: Specimen 0.5 - 2.2 mmol/L [facility] slightly hemolyzed [facility] Specimen Blood Performing Organization Address City/[facility]/Zipcode Phone Number [address] [address] [phone] * TSH/Free T4 If Indicated (06/14/2018 8:20 AM [employer]) TSH 3.12 0.35 - 4.94 uIU/mL [facility] Specimen Blood Performing Organization Address City/[facility] Phone Number [address] [address] [phone] [place] [address] * Troponin I (06/14/2018 8:20 AM [employer]) Troponin I 0.01 0.00 - 0.03 ng/mL [facility] Specimen Blood Narrative Performed At If last glucose was less than 500, may do bedside glucose instead of serum [facility] glucose. [facility] Performing Organization Address [facility] Phone Number [address] * Lipase (06/14/2018 8:20 AM [employer]) Lipase 154 (H) 8 - 78 U/L [facility] Specimen Blood Narrative Performed At If last glucose was less than 500, may do bedside glucose instead of serum [facility] glucose. [facility] Performing Organization Address City/[facility] Phone Number [address] [address] [phone] [place] [address] * Hemoglobin A1c (06/14/2018 8:20 AM [employer]) Hemoglobin A1C 12.2 (H) 4.3 - 6.1 % [facility] Specimen Blood Performing Organization Address City/[facility] Phone Number [address] [address] [phone] [place] [address] after 12/04/2017
--- OUTSIDE RECORDS SUMMARY | 2018-12-05 19:42 | XMS REPORT | Clinical Summary ---
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 Active pen needle, diabetic Inject under 1 Box 5 (NOVOFINE) 30 gauge x the skin 4 7 07/17" needlesIndications: times daily. Uncontrolled type 2 diabetes mellitus with complication, without long-term current use of insulin Active traMADol (ULTRAM) 50 mg Take 1 tablet 90 tablet 1 tabletIndications: by mouth 2 7 Chronic pain of lower times daily. extremity, bilateral, Diabetic polyneuropathy associated with other specified diabetes mellitus Active citalopram (CELEXA) 10 mg TK 1 T PO D 2 tablet FOR 7 DEPRESSION Active Diclofenac Sodium 1 % Gel DEJON TO KNEES 3 BID 7 Active temazepam (RESTORIL) 15 TK ONE C PO 2 mg cap HS PRF SLEEP 7 Active ergocalciferol (VITAMIN Take 1 20 capsule 2 D2) 50,000 unit capsule by 8 capsuleIndications: mouth weekly. Hypocalcemia Active aspirin (ASPIRIN) 81 mg Chew and 90 tablet 3 chewable swallow 1 8 tabletIndications: tablet by Uncontrolled type 2 mouth daily. diabetes mellitus with complication, without long-term current use of insulin Active ferrous sulfate 325 mg Take 1 tablet 90 tablet 3 (65 mg iron) by mouth 8 tabletIndications: daily (with Anemia, unspecified type breakfast). Active blood pressure monitor by 1 Kit 0 (BLOOD PRESSURE KIT) [facility]Non-Boris 8 KitIndications: Essential g; Combo hypertension Route) route. Active amLODIPine (NORVASC) 5 mg Take 1 tablet 90 tablet 1 tabletIndications: by mouth 8 Vomiting and diarrhea daily. Active atorvastatin (LIPITOR) 40 Take 1 tablet 90 tablet 3 mg tabletIndications: by mouth at 8 Dyslipidemia bedtime nightly. Active metFORMIN (GLUCOPHAGE) Take 1 tablet 180 tablet 3 1,000 mg by mouth 2 8 tabletIndications: Poorly times daily controlled type 2 (with meals). diabetes mellitus 06/17/2019 Active pregabalin (LYRICA) 200 Take 200 mg 0 mg capsule by mouth 8 daily. 06/17/2019 Active sodium bicarbonate 650 mg Take 1,300 mg 0 tablet by mouth 3 8 times daily. Active insulin detemir U-100 Inject 10 9 mL 1 (LEVEMIR FLEXTOUCH U-100 Units under 9 INSULN) 100 unit/mL (3 the skin 2 mL) PenIndications: times daily. Uncontrolled type 2 diabetes mellitus with complication, without long-term current use of insulin Active insulin lispro (HUMALOG) Inject 5 50 mL 2 100 unit/mL Units under 9 injectionIndications: the skin 3 Poorly controlled type 2 times daily diabetes mellitus With meals. Active lancets 28 by 100 Each 1 gaugeIndications: MISCELLANEOUS 9 Uncontrolled type 2 route 3 times diabetes mellitus with daily complication, without long-term current use of insulin Active pen needle, diabetic 31 Inject under 100 Each 1 gauge x 3/16" the skin 2 9 needlesIndications: times daily. Uncontrolled type 2 diabetes mellitus with complication, without long-term current use of insulin Active INSULIN SYRINGE 1mL Use to inject 100 Each 1 30GX5/16" (MONOJECT medication 3 9 ULTRACOMFORT INSULIN SYR times daily. 1ML 30GX5/16") Use a new syringe-needleIndications syringe each : Uncontrolled type 2 time. diabetes mellitus with complication, without long-term current use of insulin Active calcium 500 mg calcium Take 2 90 tablet 3 (1,250 mg) tablets by 9 tabletIndications: mouth daily. Hypocalcemia Active blood glucose Use as 1 Kit 0 meterIndications: directed.. 9 Uncontrolled type 2 diabetes mellitus with complication, with long-term current use of insulin Active blood glucose test check blood 100 Each 3 stripsIndications: sugar 3 times 9 Uncontrolled type 2 daily to test diabetes mellitus with blood sugar. complication, with long-term current use of insulin 11/20/2018 Discontinued insulin needles, Three times 3 Box 1 disposable, (NOVOFINE) 30 daily. Use as 3 x 1/3 " directed. needlesIndications: Type II or unspecified type diabetes mellitus without mention of complication, uncontrolled 11/20/2018 Discontinued INSULIN SYRINGE 1mL Use to inject 100 Box 3 30GX5/16" medication 4 7 syringe-needleIndications times daily. : Uncontrolled type 2 Use a new diabetes mellitus with syringe each complication, with time. long-term current use of insulin 11/20/2018 Discontinued blood glucose Use as 1 Kit 0 meterIndications: directed.. 7 Uncontrolled type 2 diabetes mellitus with complication, with long-term current use of insulin 11/20/2018 Discontinued lancets 28 check blood 100 Each 1 gaugeIndications: sugar 3 times 7 Uncontrolled type 2 daily To diabetes mellitus with check blood complication, with sugar. long-term current use of insulin 04/03/2018 Discontinued insulin detemir U-100 Take 35 units 30 mL 2 (LEVEMIR FLEXTOUCH) 100 SQ every 8 unit/mL (3 mL) morning and PenIndications: take 10 units Uncontrolled type 2 SQ at diabetes mellitus with bedtime.. complication, without long-term current use of insulin, Diabetic polyneuropathy associated with other specified diabetes mellitus 04/03/2018 Discontinued insulin lispro (HUMALOG) Inject 20 50 mL 2 100 unit/mL Units under 8 injectionIndications: the skin 3 Uncontrolled type 2 times daily diabetes mellitus with With meals. complication, without long-term current use of insulin, Diabetic polyneuropathy associated with other specified diabetes mellitus 04/03/2018 Discontinued lisinopril (PRINIVIL, Take 1 tablet 90 tablet 2 ZESTRIL) 10 mg by mouth 8 tabletIndications: daily. Uncontrolled type 2 diabetes mellitus with complication, without long-term current use of insulin 04/03/2018 Discontinued atorvastatin (LIPITOR) 40 Take 1 tablet 90 tablet 3 mg tabletIndications: by mouth at 8 Dyslipidemia bedtime nightly. 04/03/2018 Discontinued pregabalin (LYRICA) 75 mg Take 1 180 capsule 3 capsuleIndications: capsule by 8 Diabetic polyneuropathy mouth 2 times associated with other daily. specified diabetes mellitus, Chronic pain of lower extremity, bilateral 05/12/2018 Discontinued blood glucose test check blood 100 Each 3 stripsIndications: sugar 3 times 8 Uncontrolled type 2 daily to test diabetes mellitus with blood sugar. complication, with long-term current use of insulin 04/03/2018 Discontinued metFORMIN (GLUCOPHAGE) Take 1 tablet 180 tablet 3 1,000 mg by mouth 2 8 tabletIndications: times daily Hypocalcemia, Chronic (with meals). pain of lower extremity, bilateral, Uncontrolled type 2 diabetes mellitus with complication, with long-term current use of insulin 11/20/2018 Discontinued calcium 500 mg calcium Take 2 90 tablet 3 (1,250 mg) tablets by 8 tabletIndications: mouth daily. Hypocalcemia 02/15/2018 Discontinued amLODIPine (NORVASC) 5 mg Take 1 tablet 50 tablet 0 tabletIndications: by mouth 8 Vomiting and diarrhea daily. 12/24/2017 Discontinued metoclopramide (REGLAN) 5 Take 1 tablet 120 tablet 0 mg tabletIndications: by mouth 4 8 Vomiting and diarrhea times daily (before meals and nightly) for 30 days. 03/04/2018 Discontinued metoclopramide (REGLAN) Take 1/2 60 tablet 0 10 mg tabletIndications: tablets by 8 Vomiting and diarrhea mouth 4 times daily (before meals and nightly) 04/03/2018 Discontinued amLODIPine (NORVASC) 5 mg Take 1 tablet 50 tablet 0 tabletIndications: by mouth 8 Vomiting and diarrhea daily. 04/03/2018 Discontinued metoclopramide (REGLAN) Take 1/2 60 tablet 0 10 mg tabletIndications: tablets by 8 Vomiting and diarrhea mouth 4 times daily (before meals and nightly) 08/26/2018 Discontinued metoclopramide (REGLAN) Take 1/2 60 tablet 0 10 mg tabletIndications: tablets by 8 Vomiting and diarrhea mouth 4 times daily (before meals and nightly) 11/20/2018 Discontinued lisinopril (PRINIVIL, Take 1 tablet 90 tablet 2 ZESTRIL) 10 mg by mouth 8 tabletIndications: Poorly daily. controlled type 2 diabetes mellitus, Essential hypertension 09/26/2018 Discontinued pregabalin (LYRICA) 75 mg Take 1 180 capsule 2 capsuleIndications: capsule by 8 Chronic pain of lower mouth 2 times extremity, bilateral, daily. Diabetic polyneuropathy associated with other specified diabetes mellitus 11/20/2018 Discontinued insulin detemir U-100 Take 35 units 30 mL 2 (LEVEMIR FLEXTOUCH) 100 SQ every 8 unit/mL (3 mL) morning and PenIndications: Poorly take 15 units controlled type 2 SQ at diabetes mellitus bedtime.. 11/20/2018 Discontinued insulin lispro (HUMALOG) Inject 20 50 mL 2 100 unit/mL Units under 8 injectionIndications: the skin 3 Poorly controlled type 2 times daily diabetes mellitus With meals. 11/09/2018 Discontinued blood glucose test check blood 100 Each 3 stripsIndications: sugar 3 times 8 Uncontrolled type 2 daily to test diabetes mellitus with blood sugar. complication, with long-term current use of insulin 09/28/2018 metoclopramide (REGLAN) Take 1/2 60 tablet 1 10 mg tabletIndications: tablets by 9 Vomiting and diarrhea, mouth 4 times Gastroparesis daily (before meals and nightly) 11/20/2018 Discontinued pregabalin (LYRICA) 75 mg Take 1 180 capsule 2 capsuleIndications: capsule by 9 Chronic pain of lower mouth 2 times extremity, bilateral, daily. Diabetic polyneuropathy associated with other specified diabetes mellitus 11/20/2018 Discontinued blood glucose test check blood 100 Each 3 stripsIndications: sugar 3 times 9 Uncontrolled type 2 daily to test diabetes mellitus with blood sugar. complication, with long-term current use of insulin 11/20/2018 Discontinued ergocalciferol (VITAMIN Take 50,000 0 D2) 50,000 unit capsule Units by mouth weekly. 11/20/2018 Discontinued insulin lispro (HUMALOG) Inject 5 0 100 unit/mL injection Units under 8 the skin 3 times daily with meals. 11/20/2018 Discontinued atorvastatin (LIPITOR) 40 Take 40 mg by 0 mg tablet mouth daily. 11/20/2018 Discontinued lisinopril (PRINIVIL, Take 10 mg by 0 ZESTRIL) 10 mg tablet mouth daily. 6 11/20/2018 Discontinued amLODIPine (NORVASC) 2.5 Take 5 mg by 0 mg tablet mouth daily. 11/20/2018 Discontinued insulin glargine (LANTUS) Inject 30 0 100 unit/mL injection Units under 8 the skin at bedtime nightly. 11/20/2018 Discontinued blood glucose test check blood 100 Each 3 stripsIndications: sugar 3 times 9 Uncontrolled type 2 daily to test diabetes mellitus with blood sugar. complication, with long-term current use of insulin 11/24/2018 Na citrate-citric acid Take 5 mL by 60 mL 0 (BICITRA) 500-334 mg/5 mL mouth 3 times 9 oral solutionIndications: daily for 3 KEILY (acute kidney injury) days. 11/20/2018 Discontinued blood glucose Use as 1 Kit 0 meterIndications: directed.. 9 Uncontrolled type 2 diabetes mellitus with complication, with long-term current use of insulin Active Problems Problem Noted Date Dyslipidemia 09/04/2017 Essential hypertension 09/04/2017 Open wound of left foot with complication 05/31/2017 Diabetic ulcer of left heel 04/02/2017 Diabetes mellitus 04/02/2017 Microalbuminuric diabetic nephropathy 03/29/2017 Vitamin D deficiency 03/29/2017 Hypocalcemia 02/22/2017 Chronic pain of lower extremity, bilateral 02/22/2017 Anemia, unspecified 01/09/2017 Uncontrolled type 2 diabetes mellitus with complication, without long-term 07/10/2012 current use of insulin Depressive disorder, not elsewhere classified 10/05/2011 Hyperlipidemia 11/26/2006 Diabetic polyneuropathy 06/18/2006 Gastritis Normocytic anemia PAD (peripheral artery disease) KEILY (acute kidney injury) Diabetic polyneuropathy associated with type 2 diabetes mellitus Diabetic ulcer of left heel associated with type 2 diabetes mellitus, with fat layer exposed Gastroparesis Orthostatic hypotension Encounters Care Team Description Date Type Specialty Bee Hancock MD Krucke, Gus W, MD KEILY (acute kidney injury) (Primary Dx); 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, unspecified bone marrow failure type; Weakness; SOB (shortness of breath) on exertion; Uncontrolled type 2 diabetes mellitus with complication, with long-term current use of insulin; Poorly controlled type 2 diabetes mellitus; Hypocalcemia; CKD (chronic kidney disease), stage III; Uncontrolled type 2 diabetes mellitus with complication, without long-term current use of insulin 11/18/2018 Emergency - 11/20/2018 11/18/2018 Travel Brannon Stearns III, MD Chronic pain of lower extremity, bilateral; Diabetic polyneuropathy associated with other specified diabetes mellitus 11/12/2018 Refill [facility] Brannon Stearns III, MD Uncontrolled type 2 diabetes mellitus with complication, with long-term current use of insulin 11/09/2018 Refill [facility] Sandra Ellis NP Chronic pain of lower extremity, bilateral; Diabetic polyneuropathy associated with other specified diabetes mellitus 09/26/2018 Orders Only [facility] Sandra Ellis NP Chronic pain of lower extremity, bilateral; Diabetic polyneuropathy associated with other specified diabetes mellitus 09/25/2018 Refill [facility] Sandra Ellis NP Gastroparesis (Primary Dx); Vomiting and diarrhea 08/26/2018 Orders Only [facility] Sandra Ellis NP Uncontrolled type 2 diabetes mellitus with complication, with long-term current use of insulin 05/12/2018 Refill [facility] Sandra Ellis NP Poorly controlled type 2 diabetes mellitus (Primary Dx); Essential hypertension; Dyslipidemia; Callous ulcer, limited to breakdown of skin; Gastroparesis; Vomiting and diarrhea; Diabetic polyneuropathy associated with other specified diabetes mellitus; Chronic pain of lower extremity, bilateral; Hypocalcemia; Anemia, unspecified type 04/03/2018 Office Visit Family Practice Michelle Brewer MD Vomiting and diarrhea 03/04/2018 Refill [facility] Sandra Ellis NP Vomiting and diarrhea 02/15/2018 Refill Family Practice Sandra Ellis NP Vomiting and diarrhea 01/22/2018 Hospital Radiology Encounter Michelle Brewer MD Vomiting and diarrhea 12/24/2017 Refill [facility] Antonio Crowe MD Hypoglycemia (Primary Dx) 12/12/2017 Emergency Emergency Medicine Kareem Costello MD Hyperkalemia (Primary Dx); Hyperglycemia; KEILY (acute kidney injury) 12/11/2017 Emergency Emergency Medicine - 12/12/2017 Sandra Ellis NP Hypotension, unspecified hypotension type (Primary Dx); Fatigue, unspecified type; Feeling weak; Pale skin; Acute hyperglycemia 12/11/2017 Office Visit Family Practice after 12/04/2017 Immunizations Name Administration Dates Next Due Influenza Vaccine 07/17/2011, 07/06/2008, 04/29/2007, 05/21/2006 07/06/2009 Influenza Vaccine, 04/25/2017 Seasonal, Injectable Insulin R U-100 1ml Inj 01/02/2011 Pneumoccoccal 07/06/2008 07/06/2013 Tdap (Tetanus Toxoid, 04/02/2017 Reduced Diphtheria Toxoid And Acellular Pertussis, Absorbed) Tropicamide 0.5% Eye-Maegan 01/09/2017 15ml Family History Medical History Relation Name Comments Other Brother passed from [id number] Diabetes Father Diabetes Maternal Grandfather Diabetes Maternal Grandmother Diabetes Mother Diabetes Paternal Grandfather Diabetes Paternal Grandmother Diabetes Sister Relation Name Status Comments Brother Brother Alive Daughter Alive Daughter Alive Father Maternal Grandfather Maternal Grandmother Mother Alive Paternal Grandfather Paternal Grandmother Sister Alive Sister Alive Sister Alive Son Alive Social History Date Tobacco Use Types Packs/Day Years Used Quit: 08/28/2009 Current Some Day Smoker Cigarettes 0.5 5 Smokeless Tobacco: Never Used Tobacco Cessation: Ready to Quit: No; Counseling Given: No Drinks/Week oz/Week Comments Alcohol Use No Sex Assigned at Date Recorded Not on file Industry Job Start Date Occupation Not on file Not on file Not on file Travel End Travel History Travel Start No recent travel history available. Last Filed Vital Signs Reading Time Taken Comments Vital Sign 131/84 11/20/2018 7:00 AM CDT Blood Pressure 86 11/20/2018 7:00 AM CDT Pulse 37 C (98.6 F) 11/20/2018 7:00 AM CDT Temperature 17 11/20/2018 7:00 AM CDT Respiratory Rate 99% 11/18/2018 1:37 PM CDT Oxygen Saturation - - Inhaled Oxygen Concentration 72.8 kg (160 lb 8 oz) 11/19/2018 6:36 AM CDT Weight 165.1 cm (5' 5") 11/18/2018 7:18 PM CDT Height 26.71 11/18/2018 7:18 PM CDT Body Mass Index Plan of Treatment Health Maintenance Due Date Last Done Comments Cervical Cancer Scrn (3 02/01/2014 02/01/2011 Yrs) DM Retinal Exam (Yearly) 01/11/2018 01/11/2017, 06/06/2011 Breast Cancer Scrn 10/01/2018 10/01/2017 (Yearly) DM Foot Exam (Yearly) 04/03/2019 04/03/2018, 09/04/2017, 02/22/2017, Additional history exists DM HGBA1C (Yearly) 11/20/2019 11/19/2018, 08/22/2017, 03/25/2017, Additional history exists DM Microalbumin Urine 11/20/2019 11/19/2018, 11/18/2018, 11/18/2018, Scrn (Yearly) Additional history exists Goals Goal Patient Associated Recent Progress Patient-Stat Author Goal Type Problems ed? Eat Healthy Lifestyle On track No Carolina (02/22/2017) ANTONIO Fung LOWER BLOOD GLUCOSE Lifestyle Not on track No Caleb, (02/22/2017) Sandra Acosta NP HBA1C < 7.0 Result 8.8 (11/19/2018 No Caleb, Component 3:30 AM CDT) Sandra Acosta NP Procedures Comments Procedure Name Priority Date/Time Associated Diagnosis GLUCOSE POC Routine 11/20/2018 7:24 AM CDT CBC/DIFF Routine 11/20/2018 5:30 AM CDT CALCIUM, IONIZED Routine 11/20/2018 5:30 AM CDT BASIC METABOLIC PANEL Routine 11/20/2018 5:30 AM CDT GLUCOSE POC Routine 11/19/2018 8:48 PM CDT GLUCOSE POC Routine 11/19/2018 4:38 PM CDT VIT D, 25-HYDROXY Routine 11/19/2018 11:13 AM CDT INTACT PTH Routine 11/19/2018 11:13 AM CDT TSH Routine 11/19/2018 11:13 AM CDT GLUCOSE POC Routine 11/19/2018 11:12 AM CDT GLUCOSE POC Routine 11/19/2018 9:07 AM CDT GLUCOSE POC Routine 11/19/2018 5:04 AM CDT OSMOLALITY Routine 11/19/2018 3:30 AM CDT HIV-1/HIV-2 ROUTINE Routine 11/19/2018 SCREENING 3:30 AM CDT PHOSPHORUS Routine 11/19/2018 3:30 AM CDT MAGNESIUM Routine 11/19/2018 3:30 AM CDT CBC/DIFF Routine 11/19/2018 3:30 AM CDT CALCIUM, IONIZED Routine 11/19/2018 3:30 AM CDT BASIC METABOLIC PANEL Routine 11/19/2018 3:30 AM CDT HEMOGLOBIN A1C Routine 11/19/2018 3:30 AM CDT GLUCOSE POC Routine 11/18/2018 9:26 PM CDT CALCIUM, IONIZED STAT 11/18/2018 8:30 PM CDT BASIC METABOLIC PANEL Routine 11/18/2018 6:37 PM CDT BMP POC Routine 11/18/2018 4:45 PM CDT SODIUM, UR STAT 11/18/2018 4:13 PM CDT CREATININE, UR STAT 11/18/2018 4:13 PM CDT GLUCOSE POC Routine 11/18/2018 2:49 PM CDT UA CHEMISTRIES STAT 11/18/2018 12:57 PM CDT 12 LEAD EKG Routine 11/18/2018 12:50 PM CDT VBG POC Routine 11/18/2018 12:09 PM CDT BMP POC Routine 11/18/2018 12:08 PM CDT TROPONIN I POC Routine 11/18/2018 12:06 PM CDT GLUCOSE POC Routine 11/18/2018 11:53 AM CDT DIABETIC FOOT EXAM Routine 04/03/2018 Poorly controlled type 2 4:13 PM CDT diabetes mellitus NM GASTRIC EMPTY 4 HOUR Routine 01/22/2018 Vomiting and diarrhea 12:11 PM CDT GLUCOSE POC Routine 12/12/2017 7:20 AM CDT GLUCOSE POC Routine 12/12/2017 6:47 AM CDT GLUCOSE POC Routine 12/12/2017 6:04 AM CDT VBG POC Routine 12/12/2017 4:38 AM CDT BMP POC Routine 12/12/2017 3:25 AM CDT BASIC METABOLIC PANEL STAT 12/12/2017 3:25 AM CDT VBG POC Routine 12/12/2017 1:01 AM CDT GLUCOSE POC Routine 12/11/2017 11:30 PM CDT GLUCOSE POC Routine 12/11/2017 9:21 PM CDT BMP POC Routine 12/11/2017 8:09 PM CDT 12 LEAD EKG Routine 12/11/2017 6:57 PM CDT BMP POC Routine 12/11/2017 6:55 PM CDT POTASSIUM STAT 12/11/2017 6:50 PM CDT BMP POC Routine 12/11/2017 6:27 PM CDT POTASSIUM Routine 12/11/2017 6:15 PM CDT PHOSPHORUS STAT 12/11/2017 6:15 PM CDT MAGNESIUM STAT 12/11/2017 6:15 PM CDT LIPASE STAT 12/11/2017 6:15 PM CDT LIVER PROFILE STAT 12/11/2017 6:15 PM CDT CBC/DIFF STAT 12/11/2017 6:15 PM CDT GLUCOSE POC Routine 12/11/2017 2:52 PM CDT after 12/04/2017 Results * GLUCOSE POC (11/20/2018 7:24 AM CDT) Only the most recent of 15 results within the time period is included. Glucose POC 183 (H) 74 - 106 mg/dL [facility] 1 Specimen Performing Organization Address [facility] [place] [facility] * CALCIUM, IONIZED (11/20/2018 5:30 AM CDT) Only the most recent of 3 results within the time period is included. Calcium, 0.96 (L) 1.15 - 1.29 mmol/L [facility] 2 Specimen Blood Performing Organization Address [facility] Phone Number [facility] 2 * CBC/DIFF (11/20/2018 5:30 AM CDT) Only the most recent of 3 results within the time period is included. WBC 7.1 4.5 - 11.0 K/uL [facility] 2 RBC 2.55 (L) 4.20 - 5.40 M/uL [facility] 2 Hemoglobin 7.9 (L) 12.0 - 16.0 g/dL [facility] 2 Hematocrit 24.7 (L) 37.0 - 47.0 % [facility] 2 MCV 97 (H) 82 - 92 fL [facility] 2 MCH 31.0 27.0 - 32.0 pg [facility] 2 MCHC 32.0 32.0 - 36.0 g/dL [facility] 2 RDW 46.9 (H) 36.4 - 46.3 fL [facility] 2 Platelet 188 150 - 400 K/uL [facility] 2 Mean Platelet 12.0 9.4 - 12.4 fL [facility] Volume [facility] 2 Percent NRBC 0.0 [facility] 2 Absolute NRBC 0.00 [facility] 2 Neutrophil 60.3 34.0 - 70.0 % [facility] 2 Lymphocyte 29.8 20.0 - 50.0 % [facility] 2 Monocyte 6.0 5.0 - 12.0 % [facility] 2 Eosinophil 2.9 0.7 - 5.0 % [facility] 2 Basophil 0.6 0.1 - 1.2 % [facility] Pct Immat Gran 0.4 0.0 - 0.5 [facility] Neutrophil, Abs 4.29 1.56 - 6.13 K/uL [facility] Lymphocyte, Abs 2.12 1.18 - 3.74 K/uL [facility] 2 Monocyte, Abs 0.43 (H) 0.24 - 0.36 K/uL [facility] Eosinophil, Abs 0.21 0.04 - 0.36 K/uL [facility] Basophil, Abs 0.04 0.01 - 0.08 K/uL [facility] Absol Immat 0.03 0.00 - 0.03 K/uL [facility] Gran [facility] 2 Specimen Blood Performing Organization Address City/State/Zipcode Phone Number [place] [facility] * BASIC METABOLIC PANEL (11/20/2018 5:30 AM CDT) Only the most recent of 4 results within the time period is included. CO2 20 (L) 21 - 31 mmol/L [facility] 1 Chloride 112 (H) 98 - 107 mmol/L [facility] 1 Potassium 4.6 3.5 - 5.1 mmol/L [facility] 1 Sodium 138 136 - 145 mmol/L [facility] 1 Glucose 227 (H) 70 - 110 mg/dL [facility] 1 Urea Nitrogen 27 (H) 7 - 25 mg/dL [facility] 1 Creatinine 1.70 (H) 0.6 - 1.2 mg/dL [facility] 1 Anion Gap 6 [facility] 1 Calcium 6.8 (LL) 8.6 - 10.3 mg/dL [facility] 1 GFR, Estimated 32 mL/min/1.73 m2 [facility] 1 GFR, Estim, 39 mL/min/1.73 m2 [facility] Afr-Am [facility] 1 Specimen Blood Performing Organization Address [facility] Phone Number [place] [facility] 1 * VIT D, 25-HYDROXY (11/19/2018 11:13 AM CDT) Vit D, 28.0 (L) 30 - 100 ng/mL [facility] DIAGNOSTIC 25-Hydroxy Comment: IMMUNOLOGY Vitamin D deficiency has been defined by the [place] of [employer] and Endocrine Society guideline as a level of serum 25-OH Vitamin D less than 20 ng/mL. The Endocrine Society further defines Vitamin D insufficiency as a level between 21 and 29 ng/mL and sufficiency as a level between 30 and 100 ng/mL. Specimen Performing Organization Address [facility] Phone Number [facility] DIAGNOSTIC IMMUNOLOGY * INTACT PTH (11/19/2018 11:13 AM CDT) Intact PTH 123.60 (H) 8.7 - 77.1 pg/mL [facility] 2 Specimen Blood Performing Organization Address [facility] Phone Number [facility] 2 * TSH (11/19/2018 11:13 AM CDT) TSH 1.29 0.57 - 3.74 uIU/mL [facility] 1 Specimen Blood Performing Organization Address [facility] Phone Number [facility] 1 * HIV-1/HIV-2 ROUTINE SCREENING (11/19/2018 3:30 AM CDT) HIV-1/HIV-2 Negative NEG [facility] 4 Specimen Performing Organization Address [facility] Phone Number [facility] 4 * HEMOGLOBIN A1C (11/19/2018 3:30 AM CDT) Hemoglobin A1c 8.8 (H) 4.3 - 6.1 % [facility] 1 Est Average 205.9 mg/dL [facility] Gluc [facility] 1 Specimen Blood Performing Organization Address [facility] [place] Number [facility] * PHOSPHORUS (11/19/2018 3:30 AM CDT) Only the most recent of 2 results within the time period is included. Phosphorus 3.3 2.5 - 5.0 mg/dL [facility] 1 Specimen Blood Performing Organization Address [facility] [place] Number [facility] * OSMOLALITY (11/19/2018 3:30 AM CDT) Osmolality 308 (H) 266 - 300 mOsm/kg [facility] 2 Specimen Performing Organization Address [facility] [place] Number [facility] * MAGNESIUM (11/19/2018 3:30 AM CDT) Only the most recent of 2 results within the time period is included. Magnesium 1.9 1.9 - 2.7 mg/dL [facility] 1 Specimen Blood Performing Organization Address [facility] [place] [place] Number [facility] * BMP POC (11/18/2018 4:45 PM CDT) Only the most recent of 6 results within the time period is included. Pathologist [facility] CO2 POC 16 (L) 21 - 32 mmol/L [facility] 1 Chloride POC 103 98 - 107 mmol/L [facility] 1 Potassium POC 4.2 3.50 - 5.10 mmol/L [facility] 1 Sodium POC 133 (L) 136 - 145 mmol/L [facility] 1 Glucose POC 372 (H) 74 - 106 mg/dL [facility] 1 Urea Nitrogen 36 (H) 7 - 18 mg/dL [facility] 1 Creatinine POC 2.3 (H) 0.6 - 1.3 mg/dL [facility] 1 Calcium Ionized 0.94 (L) 1.15 - 1.29 mmol/L [facility] 1 Hemoglobin POC 9.2 (L) 12.0 - 16.0 g/dL [facility] 1 Hematocrit POC 27.0 (L) 37.0 - 47.0 % [facility] 1 GFR, Estimated 23 mL/min/1.73 m2 [facility] 1 GFR, Estim, 27 mL/min/1.73 m2 [facility] Afr-Am [facility] 1 Specimen Performing Organization Address [facility] Phone [facility] * SODIUM, UR (11/18/2018 4:13 PM CDT) Sodium, Ur 51 40 - 220 mmol/L [facility] 1 Specimen Urine Performing Organization Address [facility] Phone Number [facility] 1 * CREATININE, UR (11/18/2018 4:13 PM CDT) Creatinine, Ur 69.8 20 - 320 mg/dL [facility] 1 Specimen Urine Performing Organization Address [facility] [place] Number [facility] 1 * UA CHEMISTRIES (11/18/2018 12:57 PM CDT) Color Yellow [facility] 4 Clarity Clear [facility] 4 Spec Buchanan 1.012 1.001 - 1.035 [facility] 4 pH 6.0 5 - 8 [facility] 4 Protein 3+ (A) NEG [facility] 4 Glucose 3+ (A) NEG [facility] 4 Ketone Negative NEG [facility] 4 Bilirubin Negative NEG [facility] 4 Nitrate Negative NEG [facility] 4 Urobilinogen <1.0 0.2 - 1.0 EU/dL [facility] 4 Leukocyte Negative NEG [facility] 4 Blood 1+ (A) NEG [facility] 4 RBC 2 0 - 4 /HPF [facility] 4 WBC 1 0 - 5 /HPF [facility] 4 Epithelial Cell 2 /HPF [facility] 4 Mucous Present [facility] 4 Hyaline Cast 4 /LPF [facility] 4 Specimen Urine Performing Organization Address [facility] Phone Number [facility] 4 * 12 LEAD EKG (11/18/2018 12:50 PM CDT) 12 LEAD EKG FOR [facility] Test Date:2018-11-18 Pat Name: MARLEN CHAVIRA Department: [id number] Room: [place] [address] Gender: F It Program Engagement Director: ASHLEY :1971-0 07-27 Requested By: BEE Acosta Order Number: [id number] Reading MD: Kareem ARMANDO Measurements Intervals [place] Rate: 94 P:20 WI: 129 QRS: 11 QRSD: 89 T:48 QT: 366 QTc:458 Interpretive Statements SINUS RHYTHM NONSPECIFIC ST & T-WAVE ABNORMALITY Abnormal ECG Electronically Signed On 11-18-2018 15:22:24 CDT by Kareem ARMANDO Specimen Performing Organization Address [facility] [place] Phone Number SMS * VBG POC (11/18/2018 12:09 PM CDT) Only the most recent of 3 results within the time period is included. pH, Anton POC 7.23 (L) 7.33 - 7.43 [facility] 1 pCO2, Anton POC 46.8 38.0 - 50.0 mm Hg [facility] 1 pO2, Anton POC 22 (L) 50 - 75 mm Hg [facility] 1 Base Deficit, 8 [facility] Anton POC [facility] 1 HCO3, Anton POC 19.3 (L) 22.0 - 26.0 mmol/L [facility] % Sat, Anton POC 29 (L) 60 - 85 % [facility] 1 Lactic Acid, 1.89 0.4 - 2.0 mmol/L [facility] Anton POC [facility] 1 TCO2, ANTON POC 21 21 - 32 mmol/L [facility] 1 Specimen Performing Organization Address [facility] Phone Number [facility] 1 * TROPONIN I POC (11/18/2018 12:06 PM CDT) Troponin POC 0.01 0.00 - 0.08 ng/mL [facility] 1 Specimen Performing Organization Address [facility] Phone Number [facility] 1 * DIABETIC FOOT EXAM (04/03/2018 4:13 PM CDT) Narrative Performed At Sandra Ellis NP 04/03/20185:20 PM Diabetic Foot Exam was performed at 04/03/2018 5:19 PM.Right foot sensation is normal, right foot pulses are normal, right foot appearance is normal.Left foot sensation is normal,left foot pulses are normal, left foot appearance is normal. * NM GASTRIC EMPTY 4 HOUR (01/22/2018 12:11 PM CDT) Specimen Impressions Performed At IMPRESSION: SMS Delayed gastric emptying, consistent with gastroparesis. Dictated By: Venkat Elam MD, 01/22/2018 1:13 PM I have reviewed the study and agree with the findings in this report. Signed By: Bee Douglas MD, 01/22/2018 1:30 PM Narrative Performed At EXAM: GASTRIC EMPTYING STUDY SMS INDICATION:Nausea and vomiting TECHNIQUE: The patient was administered 1 millicuries of technetium-99m sulfur labeled egg white sandwich and orange juice. Static images of the abdomen were obtained at 90, 136 and the 204 minutes post administration. Emptying curve was generated based on the region of the interest of the stomach. FINDINGS: There was significantly delayed tracer transit from stomach to intestine with gastric half emptying time of 161 minutes (Normal is less than 90 min). There is 78% of tracer remaining in stomach at 90 min, 68% at 136 minutes and 32% at 204 min (normal is less than 10% at 240 minutes). Procedure Note Interface, Rad/Mammog In - 01/22/2018 1:35 PM CDT EXAM: GASTRIC EMPTYING STUDY INDICATION: Nausea and vomiting TECHNIQUE: The patient was administered 1 millicuries of technetium-99m sulfur labeled egg white sandwich and orange juice. Static images of the abdomen were obtained at 90, 136 and the 204 minutes post administration. Emptying curve was generated based on the region of the interest of the stomach. FINDINGS: There was significantly delayed tracer transit from stomach to intestine with gastric half emptying time of 161 minutes (Normal is less than 90 min). There is 78% of tracer remaining in stomach at 90 min, 68% at 136 minutes and 32% at 204 min (normal is less than 10% at 240 minutes). IMPRESSION IMPRESSION: Delayed gastric emptying, consistent with gastroparesis. Dictated By: Venkat Elam MD, 01/22/2018 1:13 PM I have reviewed the study and agree with the findings in this report. Signed By: Bee Douglas MD, 01/22/2018 1:30 PM Performing Organization Address City/State/Zipcode Phone Number SMS * 12 LEAD EKG (12/11/2017 6:57 PM CDT) 12 LEAD EKG FOR SMS [facility] Singh Zaldivar [facility] Test Date:2017-12-11 Pat Name: MARLEN CHAVIRA Department: Room: Gender: F It Program Engagement Director: :1971-0 07-27 Requested By: Order Number: Janet tsang MD: Damion Dove Measurements Intervals [place] Rate: 96 P:56 WI: 157 QRS: 10 QRSD: 85 T:34 QT: 357 QTc:453 Interpretive Statements SINUS RHYTHM POSSIBLE LEFT ATRIAL ENLARGEMENT NONSPECIFIC T-WAVE ABNORMALITY POOR R-WAVE PROGRESSION ABNORMAL EKG Electronically Signed On 12-12-17 10:22:05 CDT by Damion Dove Specimen Performing Organization Address City/State/Zipcode Phone Number [facility] * POTASSIUM (12/11/2017 6:50 PM CDT) Only the most recent of 2 results within the time period is included. Potassium 5.8 (H) 3.50 - 5.10 mmol/L [facility] 2 Specimen Blood Performing Organization Address [facility] Phone Number [facility] 2 * LIVER PROFILE (12/11/2017 6:15 PM CDT) T Protein 6.9 6.4 - 8.2 g/dL [facility] 2 Albumin 3.2 (L) 3.4 - 5.0 g/dL [facility] 2 T Bilirubin 0.2 0.2 - 1.0 mg/dL [facility] 2 Alk Phos 91 45 - 117 U/L [facility] 2 AST 32 15 - 37 U/L [facility] 2 ALT 30 12 - 78 U/L [facility] 2 D Bilirubin <0.1 0.0 - 0.2 mg/dL [facility] 2 Specimen Blood Performing Organization Address [facility] Phone [facility] 2 * LIPASE (12/11/2017 6:15 PM CDT) Lipase 214 73 - 393 U/L [facility] 2 Specimen Blood Performing Organization Address [facility] Phone Number [facility] 2 after 12/04/2017 Insurance Type Payer Benefit Subscriber ID Effective Phone Address Plan / Dates Group [employer] PLAN [employer] PLAN xxxxx [id number] [place] [address] (Work) 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
[2018-12-05] MEDS ORDERED: DEXTROSE 50% SYRINGE 50 ML IV PRN (19:45)
[2018-12-05] MEDS ORDERED: ACETAMINOPHEN 325 MG TAB PO PRN (19:45)
[2018-12-05] MEDS: CEFTRIAXONE SOD 1 GM/NS 50 ML 50 ML IV SCH (20:15)
[2018-12-05] MEDS: AZITHROMYCIN 500MG/NS 250 ML 250 ML IV SCH (20:15)
[2018-12-05] MEDS: SODIUM CHLORIDE 0.9% 1000ML 1,000 ML IV SCH (20:15)
[2018-12-05] MEDS: GUAIFENESIN/CODEINE 10 ML CUP PO PRN (20:18)
[2018-12-05] MEDS: ALBUTEROL/IPRATROPIUM 3 ML NEB NEB SCH (20:55)
--- NOTE | 2018-12-05 22:40 | NUR ---
SPOKE WITH DR. NAPOLES REGARDING CRITICAL GLUCOSE OF 555, RECEIVED ORDERS FOR 20 UNITS OF LANTUS AND 15 UNITS OF REGULAR INSULIN AT THIS TIME.
[2018-12-05] MEDS ORDERED: INSULIN GLARGINE 100 UNITS/ML VIAL SQ SCH (22:45)
[2018-12-05] MEDS: INSULIN LISPRO 100 UNIT/1 ML 3ML VIAL SQ SCH (22:52)
--- NOTE | 2018-12-05 23:20 | NUR ---
Received report from Tirso, ER nurse. Patient arrived via wheelchair. Patient is A&Ox 3
[2018-12-05] MEDS ORDERED: INSULIN GLARGINE 100 UNITS/ML VIAL SQ ONE (23:30)
[2018-12-05 23:54] VITALS: BP 141/70
[2018-12-06] VITALS (8 sets, daily range): BP systolic 140–186; BP diastolic 65–91
[2018-12-06 01:48] LABS: CREATINE KINASE 197 IU/L (29-168)
[2018-12-06] MEDS: ALBUTEROL/IPRATROPIUM 3 ML NEB NEB SCH ×4 (01:50→20:10)
[2018-12-06 03:32] LABS: BASOPHILS % 0.2 % (0.0-1.0); EOSINOPHILS # (AUTO) 0.1 (0.0-0.4); EOSINOPHILS % 1.3 % (0.0-6.0); LYMPHOCYTES # (AUTO) 1.8 (1.0-3.2); LYMPHOCYTES % 21.9 % (18.0-39.1); MEAN CORPUSCULAR HEMOGLOBIN 31.4 pg (28-32); MEAN CORPUSCULAR VOLUME 95.1 fL (81-99); MONOCYTES # (AUTO) 0.5 (0.2-0.8); MONOCYTES % 6.1 % (4.4-11.3); NEUTROPHILS # (AUTO) 5.7 (2.1-6.9); NEUTROPHILS % 68.7 % (38.7-80.0); PLATELET COUNT 195 x10e3/uL (140-360); RED BLOOD COUNT 2.04 x10e6/uL (3.6-5.1); RED CELL DISTRIBUTION WIDTH 13.7 % (11.7-14.4)
[2018-12-06 03:36] LABS: HEMATOCRIT 19.4 % (34.2-44.1); HEMOGLOBIN 6.4 g/dL (12.0-16.0)
[2018-12-06 03:55] LABS: CALCIUM 7.6 mg/dL (8.4-10.2); CREATININE, SERUM 1.93 mg/dL (0.57-1.11)
--- NOTE | 2018-12-06 04:16 | NUR ---
Got consent for blood from the patient.
[2018-12-06 04:17] LABS: FERRITIN 140.12 ng/mL (4.63-204.00); FREE T4 (FREE THYROXINE) 0.84 ng/dL (0.9-1.8); THYROID STIMULATING HORMONE 1.835 uIU/mL (0.350-4.940)
[2018-12-06] MEDS ORDERED: SODIUM CHLORIDE 0.9% 250ML 250 ML ONE (04:31)
[2018-12-06 04:39] LABS: FOLATE 6.7 ng/mL (7.0-15.4)
[2018-12-06] MEDS: GUAIFENESIN/CODEINE 10 ML CUP PO PRN (04:52)
--- NOTE | 2018-12-06 06:38 | Diagnostic Imaging Report ---
Examination: Single AP view of the chest. COMPARISON: December 05, 2018 INDICATION: Anemia DISCUSSION: Lines/tubes: None. Lungs: The lungs are well inflated and clear. No pneumonia or pulmonary edema. Pleura: No pleural effusion or pneumothorax. Heart and mediastinum: The heart and the mediastinum are unremarkable. Bones and soft tissues: No acute bony abnormalities. IMPRESSION: 1. No acute cardiopulmonary abnormalities. Signed by: Dr. Dennis Herrera M.D. on 12/06/2018 6:34 AM
--- NOTE | 2018-12-06 07:43 | NUR ---
Gave report to oncoming nurse. call light within reach. patient in bed.
[2018-12-06] MEDS ORDERED: FUROSEMIDE INJ 10 MG/ML 2 ML VIAL IV SCH (08:30)
[2018-12-06] MEDS ORDERED: SODIUM CHLORIDE 0.9% 250ML 250 ML IV ONE ×2 (09:00→11:00)
[2018-12-06] MEDS ORDERED: LISINOPRIL 10 MG TAB PO SCH (09:00)
[2018-12-06] MEDS: INSULIN LISPRO 100 UNIT/1 ML 3ML VIAL SQ SCH ×4 (09:36→20:50)
[2018-12-06] MEDS: INSULIN GLARGINE 100 UNITS/ML VIAL SC SCH (09:37)
[2018-12-06] MEDS: SODIUM CHLORIDE 0.9% 1000ML 1,000 ML IV SCH (09:56)
[2018-12-06] MEDS: FAMOTIDINE 20 MG TAB PO SCH ×2 (09:57→17:11)
[2018-12-06] MEDS: PREGABALIN 75 MG CAP PO SCH ×2 (09:58→17:11)
[2018-12-06] MEDS: FOLIC ACID 1 MG TAB PO SCH (09:58)
[2018-12-06] MEDS: OYST-CAL-D 500MG TABLET PO SCH ×2 (09:58→17:11)
[2018-12-06] MEDS: NICOTINE 14 MG/EA PATCH TOP SCH (09:59)
[2018-12-06] MEDS: BENZONATATE 100 MG CAP PO SCH ×2 (09:59→17:11)
[2018-12-06] MEDS: HYDRALAZINE HCL 20 MG/ML VIAL IV PRN ×2 (10:27→21:06)
[2018-12-06] MEDS: LORAZEPAM INJ 2 MG/ML VIAL IV PRN ×2 (10:40→18:46)
--- NOTE | 2018-12-06 11:07 | Diagnostic Imaging Report ---
EXAM: Complete Abdominal Ultrasound INDICATION: ^NAUSEA, VOMITING, DISTENTION COMPARISON: None. TECHNIQUE: Transverse and longitudinal images of the upper abdomen were obtained. FINDINGS: Liver: Size: 16.3 cm in the right midclavicular line, normal Appearance: Normal echogenicity, smooth contour Mass: No focal masses Spleen: Size: 10.5 x 4.4 x 4.1 cm in length, normal Echogenicity: Normal Mass: No focal masses Gallbladder: Stones/Sludge: None Wall: 0.2 cm Appearance: No pericholecystic fluid or hydrops. Sonographic Soriano's Sign: Negative Bile Ducts: Intrahepatic Ducts: No dilatation Extrahepatic Ducts: Common bile duct measures 0.3 cm, no dilatation Pancreas: Visualized portions of the pancreatic head, neck and proximal body are normal. Right Kidney: Size: 12.8 x 6.6 x 7.5 cm Echogenicity: Normal Parenchymal thickness: Normal Collecting System: No hydronephrosis Stone: None Cyst/Mass: None Left Kidney: Size: 12.6 x 6.2 x 6.7 cm Echogenicity: Normal Parenchymal thickness: Normal Collecting System: No hydronephrosis Stone: None Cyst/Mass: None Vessels: Aorta: Visualized portions are normal Inferior Vena Cava: Visualized portions are normal Main Portal Vein: 0.9 cm, normal size with hepatopetal flow. Free Fluid: No ascites or pleural effusion IMPRESSION: Normal abdominal ultrasound. Signed by: Dr. Hernandez Kwon M.D. on 12/06/2018 11:03 AM
[2018-12-06] MEDS: FUROSEMIDE INJ 10 MG/ML 2 ML VIAL IV SCH ×2 (13:06→20:03)
[2018-12-06] MEDS ORDERED: FENTANYL CITRATE/PF 100MCG/2 ML INJ ONE (13:24)
[2018-12-06] MEDS ORDERED: MIDAZOLAM HCL 2 MG/2 ML VIAL ONE (13:24)
[2018-12-06 14:24] LABS: CREATINE KINASE MB 4.7 ng/mL (0-5.0)
[2018-12-06] MEDS ORDERED: DEXTROSE 50% SYRINGE 50 ML IV ONE ×2 (15:29→16:00)
--- NOTE | 2018-12-06 15:45 | Consultation ---
DATE OF CONSULTATION: Renal Consultation Thank you Dr. Holloway for the consult. HISTORY OF PRESENT ILLNESS: Ms. Mccain is a pleasant 48-year-old female with past medical history significant for chronic kidney disease stage 3, hypertension, diabetes mellitus, came into the hospital with uncontrolled blood sugars, some shortness of breath, placed on IV fluids. The patient is starting to get edema over arms and legs, starting to get some fullness in her chest as well. Also came in with profound anemia and is receiving PRBCs 2 units, will receive IV Lasix after each unit. Currently, no fever, chills, nausea, vomiting, diarrhea. No other symptoms. Renal consult has been asked for the management of her chronic kidney disease to establish care with a rental coordinator. PAST MEDICAL HISTORY: As outlined above. ALLERGIES: NO KNOWN DRUG ALLERGIES. SOCIAL HISTORY: No tobacco. No alcohol use. FAMILY HISTORY: Noncontributory. REVIEW OF SYSTEMS: See HPI. Otherwise, all systems negative. MEDICATIONS: All been reviewed per chart. PHYSICAL EXAMINATION: VITAL SIGNS: Blood pressure is 180s/80s, 97.7 temperature, pulse 99, 20 respirations. HEENT: No cervical lymphadenopathy. NECK: Supple without masses. No JVD. Moist appearing oral mucosa. SKIN: Moist with good skin turgor. CHEST: Chest wall good expansion. No chest wall tenderness. LUNGS: Minimal rales at the bases. CARDIOVASCULAR: S1, S2. No nausea or murmur. ABDOMEN: Soft, positive bowel sounds. Nontender. EXTREMITIES: Evidence of 1 to 2+ edema in bilateral lower extremities and 1+ edema in bilateral upper extremities. NEUROLOGIC: Awake, alert, and oriented x3. Grossly nonfocal exam. LABORATORY DATA: Yesterdays sodium 135, potassium 3.9, chloride 109, bicarb 18, BUN 29, creatinine is 2.1, glucose 348. Today sodium 135, potassium 4, chloride 111, bicarb 17, BUN 28, creatinine 1.9. IMPRESSION AND PLAN: Chronic kidney disease stage 3 at baseline. Likely has chronic kidney disease stage 3 from history of diabetes mellitus and hypertension leading to nephrosclerosis. At present time, no current urgent indication for any acute renal intervention. I would at this time like to stop the IV fluids since the patient is getting on the fluid overload side. That is evident by the patient having worsening metabolic acidosis which is likely an acid load from the normal saline. I agree with IV Lasix after each blood transfusion. I would rather increase it to 40 mg after each unit and monitor kidney function closely and I's and O's and keep on fluid restriction about 1500 mL per day. Get labs in morning including basic metabolic panel, mag, phos, CBC, get a baseline renal ultrasound one has already been ordered and get urine protein to creatinine ratio. Make further recommendations. 1. I would recommend to avoid potential nephrotoxic agents. Avoid IV dye and nonsteroidal anti-inflammatory drugs and AURELIANO inhibitors and ARB at this time. 2. Hypertension, blood pressure is currently elevated. Would recommend to titrate up the blood pressure medications. Also stop the IV fluids and give IV Lasix, which should help improve the blood pressure. 3. Metabolic acidosis could be from chronic kidney disease as well as fluid overload from acid load of the saline. Would discontinue normal saline. Give Lasix as outlined above and make further recommendations. 4. May require oral sodium bicarbonate as an outpatient prior to discharge. Thank you once again for the consult. We will follow the patient closely with you and make further recommendations. Carlo Aguirre MD /MODL /[id number] cc: Gato Holloway MD
--- NOTE | 2018-12-06 19:05 | NUR ---
Got report from previous nurse. Call light within reach. Patient in bed.
[2018-12-06] MEDS: CEFTRIAXONE SOD 1 GM/NS 50 ML 50 ML IV SCH (20:39)
[2018-12-06] MEDS: AZITHROMYCIN 500MG/NS 250 ML 250 ML IV SCH (21:36)
[2018-12-06] MEDS: TRAMADOL HCL 50 MG TAB PO PRN (22:18)
[2018-12-06] MEDS ORDERED: IRON-VITAMIN-MINERAL CAPSULE PO STA (23:41)
[2018-12-07] VITALS (8 sets, daily range): BP systolic 126–190; BP diastolic 70–91
[2018-12-07] MEDS: ALBUTEROL/IPRATROPIUM 3 ML NEB NEB SCH ×4 (00:25→19:45)
[2018-12-07 01:52] LABS: BASOPHILS % 0.5 % (0.0-1.0); EOSINOPHILS # (AUTO) 0.2 (0.0-0.4); EOSINOPHILS % 2.4 % (0.0-6.0); HEMATOCRIT 33.4 % (34.2-44.1); HEMOGLOBIN 11.5 g/dL (12.0-16.0); LYMPHOCYTES # (AUTO) 2.4 (1.0-3.2); LYMPHOCYTES % 26.9 % (18.0-39.1); MEAN CORPUSCULAR HEMOGLOBIN 30.8 pg (28-32); MEAN CORPUSCULAR HGB CONC 34.4 g/dL (31-35); MEAN CORPUSCULAR VOLUME 89.5 fL (81-99); MONOCYTES # (AUTO) 0.6 (0.2-0.8); MONOCYTES % 7.2 % (4.4-11.3); NEUTROPHILS # (AUTO) 5.4 (2.1-6.9); NEUTROPHILS % 61.3 % (38.7-80.0); PLATELET COUNT 194 x10e3/uL (140-360); RED BLOOD COUNT 3.73 x10e6/uL (3.6-5.1); RED CELL DISTRIBUTION WIDTH 14.6 % (11.7-14.4)
[2018-12-07 02:08] LABS: ANION GAP 12.5 mmol/L (8-16); CALCIUM 7.9 mg/dL (8.4-10.2); CREATININE, SERUM 1.77 mg/dL (0.57-1.11); PHOSPHORUS 3.9 MG/DL (2.3-4.7); POTASSIUM 3.5 mmol/L (3.5-5.1)
[2018-12-07] MEDS: HYDRALAZINE HCL 20 MG/ML VIAL IV PRN ×2 (02:10→20:02)
--- NOTE | 2018-12-07 02:54 | NUR ---
Called and talked to Dr. Holloway about patient having magnesium level of 1.0. Dr. Holloway order 2 g magnesium sulfate IV
[2018-12-07] MEDS ORDERED: MAGNESIUM SULFATE 2GM/50ML 50 ML IV ONE (03:00)
[2018-12-07 03:48] LABS: THYROID STIMULATING HORMONE 2.013 uIU/mL (0.350-4.940)
--- NOTE | 2018-12-07 07:10 | NUR ---
Gave report to oncoming nurse. Call light within reach. Patient in bed.
[2018-12-07] MEDS: INSULIN LISPRO 100 UNIT/1 ML 3ML VIAL SQ SCH ×4 (10:56→20:01)
[2018-12-07] MEDS: INSULIN GLARGINE 100 UNITS/ML VIAL SC SCH (10:57)
[2018-12-07] MEDS: FOLIC ACID 1 MG TAB PO SCH (10:58)
[2018-12-07] MEDS: FAMOTIDINE 20 MG TAB PO SCH ×2 (10:58→17:08)
[2018-12-07] MEDS: IRON-VITAMIN-MINERAL CAPSULE PO SCH ×2 (10:58→17:10)
[2018-12-07] MEDS: PANTOPRAZOLE SOD 40 MG TABEC PO SCH (10:58)
[2018-12-07] MEDS: PREGABALIN 75 MG CAP PO SCH ×2 (10:58→17:10)
[2018-12-07] MEDS: AMLODIPINE BESYLATE 10 MG TAB PO SCH (10:59)
[2018-12-07] MEDS: OYST-CAL-D 500MG TABLET PO SCH ×2 (10:59→17:10)
[2018-12-07] MEDS: NICOTINE 14 MG/EA PATCH TOP SCH (11:00)
[2018-12-07] MEDS: BENZONATATE 100 MG CAP PO SCH ×2 (11:00→17:10)
[2018-12-07 11:15] LABS: HEMATOCRIT 35.3 % (34.2-44.1); HEMOGLOBIN 12.1 g/dL (12.0-16.0)
[2018-12-07] MEDS ORDERED: MAGNESIUM SULF 1GRAM/DEXTROSE 300 ML IV ONE (13:30)
[2018-12-07] MEDS: FUROSEMIDE 40 MG TAB PO SCH (13:33)
[2018-12-07] MEDS ORDERED: ONDANSETRON HCL 4 MG ORAL DISINTEGRATING TAB PO PRN (15:15)
--- NOTE | 2018-12-07 15:45 | Progress Note ---
DATE: 12/07/2018 Renal Progress Note SUBJECTIVE: Followed for acute kidney injury on chronic kidney disease stage 3. Kidney function continues to improve. Creatinine is down to 1.77. The patient has responded well to transfusion of blood products, which has improved renal perfusion. The patient did somewhat appear to be more on this volume overload side. The patient's IV fluids were stopped yesterday. The patient was given Lasix after each transfusion. Breathing is better today. Lower extremity swelling and upper extremity swelling is improved also. OBJECTIVE: VITAL SIGNS: Have been noted. Blood pressure is much better controlled now. Blood pressure is 135/70, 97 heart rate. LUNGS: Clear to auscultation bilaterally. CARDIOVASCULAR: S1, S2. No rub. ABDOMEN: Soft, nontender. EXTREMITIES: 1+ edema. LABORATORY DATA: Sodium is 137, potassium 3.5, BUN is 30, creatinine is 1.8. BNP was elevated at 104.7. IMPRESSION AND PLAN: 1. Acute kidney injury on chronic kidney disease stage 3. Improved acute kidney injury from prerenal azotemia secondary to loss of renal perfusion. After improvement of hemoglobin, there has been improved renal perfusion. As a result, improved kidney function. At baseline, likely has chronic kidney disease stage 3. We will continue to monitor off IV fluids. 2. Hypertension. Blood pressure is controlled. 3. Metabolic acidosis. We will add oral sodium bicarbonate and monitor. 4. Edema/possible fluid overload. We will add Lasix and make further recommendations. 5. Hypomagnesemia. We will replace and recheck labs. Cralo Aguirre MD TH/MODL /[id number]
[2018-12-07] MEDS: SODIUM BICARBONATE 650 MG TAB PO SCH (17:10)
[2018-12-07] MEDS: POTASSIUM CHLORIDE 20 MEQ TAB CR PO SCH (17:11)
--- NOTE | 2018-12-07 18:55 | NUR ---
Got report from previous nurse. Call light within reach. Patient in bed asleep
[2018-12-07] MEDS: CEFTRIAXONE SOD 1 GM/NS 50 ML 50 ML IV SCH (19:50)
[2018-12-07] MEDS: LORAZEPAM INJ 2 MG/ML VIAL IV PRN (20:02)
[2018-12-07] MEDS: AZITHROMYCIN 500MG/NS 250 ML 250 ML IV SCH (20:20)
[2018-12-07] MEDS: GUAIFENESIN/CODEINE 10 ML CUP PO PRN (21:21)
--- NOTE | 2018-12-07 21:30 | NUR ---
Collected stool sample and brought it to lab. Erasmo, the shellfish processing laborer said he can not test the stool because the stool was formed and can only test liquid stool. He told me to dispose of the stool and only bring liquid stool.
[2018-12-08] VITALS (9 sets, daily range): BP systolic 123–151; BP diastolic 65–78
[2018-12-08] MEDS: ALBUTEROL/IPRATROPIUM 3 ML NEB NEB SCH ×4 (01:35→19:30)
[2018-12-08] MEDS: LORAZEPAM INJ 2 MG/ML VIAL IV PRN ×4 (02:28→22:50)
[2018-12-08 03:31] LABS: BASOPHILS % 0.4 % (0.0-1.0); EOSINOPHILS # (AUTO) 0.2 (0.0-0.4); EOSINOPHILS % 1.7 % (0.0-6.0); HEMATOCRIT 33.9 % (34.2-44.1); HEMOGLOBIN 11.6 g/dL (12.0-16.0); LYMPHOCYTES # (AUTO) 2.3 (1.0-3.2); LYMPHOCYTES % 24.9 % (18.0-39.1); MEAN CORPUSCULAR HEMOGLOBIN 30.9 pg (28-32); MEAN CORPUSCULAR HGB CONC 34.2 g/dL (31-35); MEAN CORPUSCULAR VOLUME 90.4 fL (81-99); MONOCYTES # (AUTO) 0.6 (0.2-0.8); MONOCYTES % 6.2 % (4.4-11.3); NEUTROPHILS # (AUTO) 6.2 (2.1-6.9); NEUTROPHILS % 66.2 % (38.7-80.0); PLATELET COUNT 224 x10e3/uL (140-360); RED BLOOD COUNT 3.75 x10e6/uL (3.6-5.1); RED CELL DISTRIBUTION WIDTH 14.9 % (11.7-14.4)
[2018-12-08 03:51] LABS: ANION GAP 10.7 mmol/L (8-16); CREATININE, SERUM 1.83 mg/dL (0.57-1.11); MAGNESIUM 2.7 MG/DL (1.3-2.1); POTASSIUM 3.7 mmol/L (3.5-5.1)
--- NOTE | 2018-12-08 07:05 | NUR ---
Patient in bed. Call light within reach. Gave report to oncoming nurse.
[2018-12-08] MEDS: FAMOTIDINE 20 MG TAB PO SCH ×2 (07:30→16:24)
[2018-12-08] MEDS: PANTOPRAZOLE SOD 40 MG TABEC PO SCH (07:30)
[2018-12-08] MEDS: INSULIN LISPRO 100 UNIT/1 ML 3ML VIAL SQ SCH ×4 (07:30→21:00)
[2018-12-08] MEDS: FOLIC ACID 1 MG TAB PO SCH (07:42)
[2018-12-08] MEDS: OYST-CAL-D 500MG TABLET PO SCH ×2 (07:43→16:24)
[2018-12-08] MEDS: PREGABALIN 75 MG CAP PO SCH ×2 (07:43→16:24)
[2018-12-08] MEDS: FUROSEMIDE 40 MG TAB PO SCH (07:43)
[2018-12-08] MEDS: IRON-VITAMIN-MINERAL CAPSULE PO SCH ×2 (07:43→16:24)
[2018-12-08] MEDS: BENZONATATE 100 MG CAP PO SCH ×2 (07:43→16:11)
[2018-12-08] MEDS: AMLODIPINE BESYLATE 10 MG TAB PO SCH (07:43)
[2018-12-08] MEDS: SODIUM BICARBONATE 650 MG TAB PO SCH ×2 (07:43→16:24)
[2018-12-08] MEDS: POTASSIUM CHLORIDE 20 MEQ TAB CR PO SCH ×2 (07:43→16:24)
[2018-12-08] MEDS: INSULIN GLARGINE 100 UNITS/ML VIAL SC SCH (07:44)
--- NOTE | 2018-12-08 08:02 | NUR ---
GAVE PACKET OF INFORMATION WITH COMM[employer]ITY [employer] FOR ASSISTANCE WITH LOW TO NO INCOME TO PATIENT. RESOURCES THAT PATIENT MAY BE ABLE TO FOLLOW UP UPON DISCHARGE. PT EDUCATED ON EACH RESOURCE AND UNDERSTANDING HOW TO FOLLOW UP TO SEE IF QUALIFIED FOR EACH RESOURCE.
[2018-12-08] MEDS: NICOTINE 14 MG/EA PATCH TOP SCH (08:28)
--- NOTE | 2018-12-08 08:30 | NUR ---
notified of insulin held this am.
--- NOTE | 2018-12-08 09:34 | NUR ---
patient off unit for EGD.
--- NOTE | 2018-12-08 10:22 | NUR ---
per Naomi RN in recovery, patient had EGD and findings were gastroparesis, gastritis and distal esophagitis. per report, patient may resume ADA diet.
--- NOTE | 2018-12-08 11:02 | Operative Report ---
DATE OF PROCEDURE: 12/08/2018 SURGEON: Rashid Vivas MD PROCEDURE: Esophagogastroduodenoscopy with biopsies. INDICATIONS FOR EGD: Acid reflux and anemia. MEDICATIONS: The patient was done under MAC, please see anesthesiologist's note. PROCEDURE IN DETAIL: With the patient in left lateral decubitus position, a flexible fiberoptic Olympus gastroscope was introduced into the esophagus under direct visualization without any difficulty. There was some patchy erythema noted in the distal esophagus. The scope was then advanced with ease into the stomach. Mucosa overlying the antrum and the body revealed some diffuse erythema and moderate edema and biopsies were obtained and sent to stain for H pylori. Pylorus was of normal contour and shape, it was intubated with ease and the scope was advanced all the way to the second portion of the duodenum. Biopsies were obtained from the proximal second portion and duodenal bulb to rule out sprue. The scope was then withdrawn back into the stomach and retroflexed and mucosa overlying the fundus and the cardia appeared to be within normal limits. The scope was then straightened out, it was subsequently withdrawn. The patient tolerated the procedure well. IMPRESSION: 1. Distal esophagitis, mild. 2. Gastritis, biopsied. Biopsies sent to stain for Helicobacter pylori. 3. Rule out sprue. PLAN: Follow up histology. Continue current therapy. Rashid Vivas MD [facility]/MODL /[id number] cc: Gato Holloway MD
--- NOTE | 2018-12-08 14:28 | Progress Note ---
DATE: 12/08/2018 Renal Progress Note SUBJECTIVE: Followed for acute kidney injury on chronic kidney disease, stage 3. Kidney function has improved and stabilized at baseline creatinine of 1.8. Sodium is better at 139, potassium 3.7, bicarb is improved to 19. No nausea, no vomiting, no shortness of breath. Lower extremity edema is improved also. OBJECTIVE: VITAL SIGNS: Have been noted and are stable. Blood pressure 139/74. LUNGS: Clear to auscultation bilaterally. CARDIOVASCULAR: S1, S2. No rub. ABDOMEN: Soft, nontender. EXTREMITIES: No edema. LABS: As follows. Potassium is 3.7, BUN 29, creatinine 1.8. IMPRESSION AND PLAN: 1. Chronic kidney disease, stage 3, baseline. Continue to monitor. 2. Hypertension. Blood pressure stable. Continue to monitor closely. 3. Edema. Continue oral Lasix. 4. Metabolic acidosis. Continue oral sodium bicarbonate and oral Lasix. Carlo Aguirre MD /MODL /[id number]
--- NOTE | 2018-12-08 19:02 | NUR ---
report given to oncoming nurse, rounds done. call light within reach.
[2018-12-08] MEDS: CEFTRIAXONE SOD 1 GM/NS 50 ML 50 ML IV SCH (20:32)
--- NOTE | 2018-12-08 20:40 | NUR ---
NO ACUTE DISTRESS OBSERVED, PATIENT DENIES PAIN. SHE'S IN THE RESTROOM AT THIS TIME, SHE'S INSTRUCTED TO CALL FOR ASSISTANCE NEEDED.
[2018-12-08] MEDS: AZITHROMYCIN 500MG/NS 250 ML 250 ML IV SCH (21:05)
[2018-12-09] MEDS: GUAIFENESIN/CODEINE 10 ML CUP PO PRN (00:02)
[2018-12-09] MEDS: TRAMADOL HCL 50 MG TAB PO PRN (00:02)
--- NOTE | 2018-12-09 00:04 | NUR ---
NON PRODUCTIVE COUGH NOTED, MEDICATED WITH ROBITUSSIN WITH CODEINE ORDERED. PATIENT C/O PAIN TO THE FEET, SHE'S ALSO MEDICATED WITH TRAMADOL ORDERED. CALL LIGHT WITHIN EASY REACH, ASSISTED WITH ADLS, SHE'S INSTRUCTED TO CALL FOR ASSISTANCE NEEDED.
[2018-12-09] MEDS: ALBUTEROL/IPRATROPIUM 3 ML NEB NEB SCH ×3 (01:20→13:30)
--- NOTE | 2018-12-09 03:40 | NUR ---
PATIENT SOUNDLY ASLEEP, NO RESPIRATORY DISTRESS OBSERVED AND SHE'S EASY TO AROUSE. SHE DENIES PAIN, CALL LIGHT WITHIN EASY REACH.
[2018-12-09 04:34] VITALS: BP 137/75
[2018-12-09] MEDS: LORAZEPAM INJ 2 MG/ML VIAL IV PRN ×2 (05:07→12:33)
--- NOTE | 2018-12-09 05:08 | NUR ---
PATIENT MEDICATED WITH ATIVAN PER HER REQUEST FOR ANXIETY, BED ALARM ON, CALL LIGHT WITHIN EASY REACH.
[2018-12-09 05:44] LABS: BASOPHILS # (AUTO) 0.1 (0.0-0.1); BASOPHILS % 0.6 % (0.0-1.0); EOSINOPHILS # (AUTO) 0.2 (0.0-0.4); HEMATOCRIT 32.8 % (34.2-44.1); HEMOGLOBIN 10.9 g/dL (12.0-16.0); LYMPHOCYTES # (AUTO) 1.9 (1.0-3.2); LYMPHOCYTES % 23.4 % (18.0-39.1); MEAN CORPUSCULAR HEMOGLOBIN 30.8 pg (28-32); MEAN CORPUSCULAR HGB CONC 33.2 g/dL (31-35); MEAN CORPUSCULAR VOLUME 92.7 fL (81-99); MONOCYTES # (AUTO) 0.8 (0.2-0.8); MONOCYTES % 9.6 % (4.4-11.3); NEUTROPHILS % 62.4 % (38.7-80.0); PLATELET COUNT 204 x10e3/uL (140-360); RED BLOOD COUNT 3.54 x10e6/uL (3.6-5.1); RED CELL DISTRIBUTION WIDTH 14.8 % (11.7-14.4)
[2018-12-09 06:00] LABS: ANION GAP 8.5 mmol/L (8-16); CALCIUM 7.6 mg/dL (8.4-10.2); POTASSIUM 4.5 mmol/L (3.5-5.1)
[2018-12-09 06:21] LABS: MAGNESIUM 2.1 MG/DL (1.3-2.1); PHOSPHORUS 3.5 MG/DL (2.3-4.7)
[2018-12-09] MEDS: PANTOPRAZOLE SOD 40 MG TABEC PO SCH (07:49)
[2018-12-09] MEDS: FAMOTIDINE 20 MG TAB PO SCH ×2 (07:49→16:30)
[2018-12-09] MEDS: INSULIN LISPRO 100 UNIT/1 ML 3ML VIAL SQ SCH ×2 (07:53→11:19)
[2018-12-09 08:03] VITALS: BP 151/76
[2018-12-09 08:10] VITALS: BP 151/76
[2018-12-09] MEDS: POTASSIUM CHLORIDE 20 MEQ TAB CR PO SCH ×2 (08:51→16:30)
[2018-12-09] MEDS: FOLIC ACID 1 MG TAB PO SCH (08:51)
[2018-12-09] MEDS: FUROSEMIDE 40 MG TAB PO SCH (08:51)
[2018-12-09] MEDS: IRON-VITAMIN-MINERAL CAPSULE PO SCH ×2 (08:51→16:30)
[2018-12-09] MEDS: AMLODIPINE BESYLATE 10 MG TAB PO SCH (08:51)
[2018-12-09] MEDS: OYST-CAL-D 500MG TABLET PO SCH ×2 (08:51→16:30)
[2018-12-09] MEDS: SODIUM BICARBONATE 650 MG TAB PO SCH ×2 (08:51→16:30)
[2018-12-09] MEDS: PREGABALIN 75 MG CAP PO SCH ×2 (08:51→16:30)
[2018-12-09] MEDS: NICOTINE 14 MG/EA PATCH TOP SCH (08:52)
[2018-12-09] MEDS: BENZONATATE 100 MG CAP PO SCH ×2 (08:52→16:30)
[2018-12-09] MEDS: INSULIN GLARGINE 100 UNITS/ML VIAL SC SCH (08:54)
--- NOTE | 2018-12-09 11:19 | NUR ---
orange juice given for low sugar 45. will re-check shortly.
[2018-12-09 11:23] VITALS: BP 135/72
--- NOTE | 2018-12-09 14:27 | Diagnostic Imaging Report ---
History: Dizziness, fall, memory loss Comparison studies: None Technique: Sagittal T2; axial DWI, FLAIR, MPGR, T1, Coronal FLAIR. Intravenous contrast: None Findings: Scalp: Normal in signal . No masses . Bone marrow: Normal in signal intensity. Extra-axial: No masses, no fluid collections. Brain sulci: Appropriate for age. Ventricles: Normal in size . No hydrocephalus . Parenchyma: Few punctate T-2/flair hyperintensities of the periventricular and deep white matter, likely without clinical significance No masses, hemorrhage, acute or chronic vascular insults. Suprasellar region: No abnormalities. Craniocervical junction: No abnormalities. Patent foramen magnum. No Chiari one malformation. Vessels: Normal flow-voids in the arteries and sinuses. IMPRESSION: 1. No acute abnormalities or finding to explain patient's symptoms Signed by: DR Estuardo Wallace M.D. on 12/09/2018 2:24 PM
[2018-12-09 16:23] VITALS: BP 145/73
--- NOTE | 2018-12-09 16:38 | Progress Note ---
DATE: 12/09/2018 Renal Progress Note SUBJECTIVE: Followed for chronic kidney disease stage 3. Creatinine is 2.0 mg/dL, which is stable for the patient. No nausea, no vomiting, no shortness of breath. OBJECTIVE: VITAL SIGNS: Have been noted and are stable. Blood pressure is 135/72. LUNGS: Clear to auscultation bilaterally. CARDIOVASCULAR: S1 and S2. No rub. ABDOMEN: Soft, nontender. EXTREMITIES: Trace edema. LABORATORY DATA: Sodium 135, potassium 4.5, BUN 28, creatinine is 2.0. IMPRESSION AND PLAN: 1. Chronic kidney disease stage 3, stable kidney function. We will continue to monitor closely. 2. Hypertension. Blood pressure stable. Continue to monitor closely. 3. Edema. We will continue oral Lasix and make further recommendations. Thank you once again. Carlo Aguirre MD /MODL /[id number]
[2018-12-09] MEDS ORDERED: SODIUM BICARBO650 MG PO (16:44)
[2018-12-09] MEDS ORDERED: CEFUROXIME250 MG PO (16:44)
[2018-12-09] MEDS ORDERED: FEROCON CAPSUL1 EACH PO (16:44)
[2018-12-09] MEDS ORDERED: TESSALON PERLE100 MG PO (16:44)
[2018-12-09] MEDS ORDERED: NORVASC10 MG PO (16:44)
[2018-12-09] MEDS ORDERED: FOLIC ACID1 MG PO (16:44)
[2018-12-09] MEDS ORDERED: AZITHROMYCIN500 MG PO ×2 (17:08→17:13)
--- NOTE | 2018-12-09 17:20 | NUR ---
Diet education - 12/09 RD consulted for diet education. Reviewed chart. HbA1C at 8.1%. CKD III with GFR at 27%. Learner(s): pt Time spent: 25minutes Barriers: No barriers identified. Cultural/Language Modifications: No cultural/language modifications noted. Pt speaks Andorran. Readiness: Pt eager to learn. Method: Handouts, explanation Topics: CKD/ ADA/ low sodium diet - meal planning tips, blood sugar check, servings/portion sizes, foods not recommended (phosphorus, potassium) Understanding/Compliance: Expect fair understanding/compliance from pt. Will benefit from reinforcement. All questions have been answered. Signed by Sandra Joshi, MS, RD, LD
--- NOTE | 2018-12-10 06:27 | Discharge Summary ---
HISTORY OF PRESENT ILLNESS: Ms. Mccain is a [id number], who is admitted with chief complaints of cough, nausea, and diarrhea. The cough was nonproductive. Nausea was intermittent and diarrhea had lasted for 2 weeks. The patient has stated that her stools were dark, but had attributed to taking iron pills. Signs and symptoms were worsening with talking. PAST MEDICAL HISTORY: Includes type 2 diabetes mellitus, hypertension, and anxiety. PAST SURGICAL HISTORY: Includes subtotal thyroidectomy, , tubal ligation, and a mass removed from her abdomen. FAMILY HISTORY: Noncontributory. SOCIAL HISTORY: Smokes a quarter of pack a day. ALLERGIES: NO KNOWN DRUG ALLERGIES. ADMITTING DIAGNOSES: Include: 1. Anemia with low folic acid. 2. Hypertension. 3. Type 2 diabetes mellitus. 4. Anxiety. 5. Acute kidney injury. 6. Hypocalcemia. 7. Nausea. 8. Community-acquired pneumonia. DISCHARGE DIAGNOSES: 1. Community-acquired pneumonia, present on arrival. 2. Anemia with folic acid deficiency. 3. Hypertension complicated by chronic kidney disease stage 3. 4. Acute kidney injury on chronic kidney disease stage 3. 5. Type 2 diabetes mellitus complicated by chronic kidney disease stage 3. 6. Anxiety. 7. Hypermagnesemia. 8. Hypocalcemia. 9. Current smoker. On admission, hemoglobin 7.9, hematocrit 24. Following day on October 06, the hemoglobin was 6.4, hematocrit 19.4, which improved to 12.1 and 35.3 after 3 units of blood. Today on the day of discharge, hemoglobin 10.9 and hematocrit 32.8. On admission, sodium 137, potassium 3.5, chloride 111, BUN 30, creatinine 1.77, GFR 31, calcium 7.9, phosphorus 3.9, magnesium 1.0. TSH 2.013. Hemoglobin A1c on October 06 was 8.1%. The patient received magnesium sulphate for hypomagnesemia. Magnesium level had improved and in fact was elevated on October 08 at 2.7. Today on the day of discharge, magnesium level 2.1, which is within normal limits. She was brittle diabetic and her glucose today was as low as 45 and is as high as 231. The patient states she is used to dealing with this at home. Chest x-ray on admission showed perihilar, peribronchial hazy opacity possibly due to bronchitis. Abdominal ultrasound on the December 06 was normal. Brain MRI that was done today showed no acute abnormality or findings to explain the patient's symptoms of dizziness, fall, and memory loss which has been going on for several months. The patient states the past year she has had dyspnea on exertion, dizziness, falls, and memory loss, loss of hearing. MRI of the brain was normal. I asked the patient to follow up due to these signs and symptoms with Dr. Sonia Thakkar with Neurology. This neurologist was not consulted during the patient's stay, however, the patient will be referred to her following discharge for followup. Consultations included Dr. Carlo Aguirre with Nephrology and Dr. Rashid Vivas with Gastroenterology. The patient had EGD on December 08, which showed mild distal esophagitis and gastritis and gastroparesis. For her community-acquired pneumonia, she received IV azithromycin and Rocephin. We discharged on oral cefuroxime and azithromycin. Folic acid and iron will be continued for her anemia with folic acid deficiency. She is also to continue her current antihypertensives amlodipine at home. The patient is to be discharged on a renal diabetic diet. [employer] has spoke with the patient just prior to leaving regarding this. She is to follow up with her PCP, Dr. Carmelo De Paz as well as Dr. Aguirre and Dr. Thakkar in 1 to 2 weeks. Today, BUN 28, creatinine 2.0, and GFR 27. Smoking cessation was encouraged. Activity level was tolerated. Dictated by José Miguel Birch NP MD ALONA EppsP/BHARATL /[id number]
== END 2018-12-09 17:40 | disposition home or self-care (01) ==
LOC: ER 16:33 → ERHOLD 19:38 → IMCU 22:58
PROVIDERS: ADMIT Internal Medicine; ATTEND Internal Medicine
DX: J18.9 Pneumonia, unspecified organism (principal); D50.0 Iron deficiency anemia secondary to blood loss (chronic); F41.9 Anxiety disorder, unspecified; N17.9 Acute kidney failure, unspecified; E83.51 Hypocalcemia; I25.10 Atherosclerotic heart disease of native coronary artery without angina pectoris; Z72.0 Tobacco use; E11.22 Type 2 diabetes mellitus with diabetic chronic kidney disease; N18.3 Chronic kidney disease, stage 3 (moderate); E87.2 Acidosis; K20.9 Esophagitis, unspecified; K29.70 Gastritis, unspecified, without bleeding; I12.9 Hypertensive chronic kidney disease with stage 1 through stage 4 chronic kidney disease, or unspecified chronic kidney disease; Z83.3 Family history of diabetes mellitus; Z82.49 Family history of ischemic heart disease and other diseases of the circulatory system; D52.9 Folate deficiency anemia, unspecified; E83.41 Hypermagnesemia; E11.43 Type 2 diabetes mellitus with diabetic autonomic (poly)neuropathy; K31.84 Gastroparesis
CPT/HCPCS: 36415 ×5; 43239; 70551; 71045; 71046; 76700; 80048 ×4; 80053; 82465; 82550 ×2; 82553 ×2; 82607; 82728; 82746; 82948 ×3; 83036; 83540; 83690; 83735 ×3; 83880 ×2; 84100 ×3; 84439; 84443 ×2; 84466; 84484 ×2; 85014; 85018; 85025 ×5; 85045; 86850; 86900; 86920; 88305; 88312; 93005; 94640 ×7; 96365; 96367; 96372; 96374; 96376; 99285; G0378 ×5; J0360 ×2; J0456 ×4; J0696 ×4; J1815 ×2; J1940; J2001; J2060 ×4; J2250; J2704; J3475 ×2; J7030; J7050; J7799; P9016; S0164 ×2

== ENCOUNTER 2018-12-10 08:32 | Emergency (ER) | payer SELFPAY ==
[~2018-12-10] VITALS: Ht 162.6 cm; Wt 77.1 kg
[~2018-12-10 08:32] MED LIST changes: +AZITHROMYCIN500 MG PO; +CEFUROXIME250 MG PO; +FEROCON CAPSUL1 EACH PO; +FOLIC ACID1 MG PO; -LIDOCAINE HCL 2% LOCAL INJ 5 ML SDV VIAL INJ ONE; +NORVASC10 MG PO; -PROPOFOL IV EMULSION 10 MG/ML 50 ML VIAL ONE; +SODIUM BICARBO650 MG PO; +TESSALON PERLE100 MG PO
--- NOTE | 2018-12-10 08:35 | NUR ---
CALLED FOR FOOD TRAY
--- OUTSIDE RECORDS SUMMARY | 2018-12-10 08:36 | XMS REPORT | Clinical Summary ---
Author Author [facility] [place] Address Unknown Phone Unavailable Care Team Providers Care Branch Chief Name Role Phone Carmelo De Paz PCP [...] Preciado MD transfer 06/14/2018 Telephone Pulmonology after 12/09/2017 Family History Medical History Relation Name Comments [...] Taken Vital Sign Reading 06/17/2018 2:02 PM RECREATION ACTIVITIES COORDINATOR Blood Pressure 140/75 06/17/2018 2:19 PM RECREATION ACTIVITIES COORDINATOR Pulse 73 06/17/2018 12:00 PM RECREATION ACTIVITIES COORDINATOR Temperature 36.7 C (98 F) 06/17/2018 2:19 PM RECREATION ACTIVITIES COORDINATOR Respiratory Rate 30 06/17/2018 2:19 PM RECREATION ACTIVITIES COORDINATOR Oxygen Saturation 97% - Inhaled Oxygen - Concentration 06/17/2018 6:00 AM RECREATION ACTIVITIES COORDINATOR Weight 64.8 kg (142 lb 13.7 oz) 06/14/2018 7:45 AM RECREATION ACTIVITIES COORDINATOR Height 162.6 cm (5' 4") 06/17/2018 6:00 AM RECREATION ACTIVITIES COORDINATOR Body Mass Index 24.52 Plan of Treatment Not on file Procedures Comments Procedure Name Priority Date/Time Associated Diagnosis RHYTHM STRIP - SCAN 06/24/2018 1:00 PM RECREATION ACTIVITIES COORDINATOR POCT-GLUCOSE METER Routine 06/17/2018 2:33 PM RECREATION ACTIVITIES COORDINATOR POCT-GLUCOSE METER Routine 06/17/2018 1:46 PM RECREATION ACTIVITIES COORDINATOR POCT-GLUCOSE METER Routine 06/17/2018 12:39 PM RECREATION ACTIVITIES COORDINATOR POCT-GLUCOSE METER Routine 06/17/2018 9:35 AM RECREATION ACTIVITIES COORDINATOR CBC W/PLT COUNT & AUTO Routine 06/17/2018 DIFFERENTIAL 4:38 AM RECREATION ACTIVITIES COORDINATOR CBC W/PLT COUNT & AUTO Routine 06/17/2018 DIFFERENTIAL 4:38 AM RECREATION ACTIVITIES COORDINATOR PHOSPHORUS Routine 06/17/2018 4:38 AM RECREATION ACTIVITIES COORDINATOR MAGNESIUM Routine 06/17/2018 4:38 AM RECREATION ACTIVITIES COORDINATOR BASIC METABOLIC PANEL (7) Routine 06/17/2018 4:38 AM RECREATION ACTIVITIES COORDINATOR PHOSPHORUS Routine 06/17/2018 1:16 AM RECREATION ACTIVITIES COORDINATOR MAGNESIUM Routine 06/17/2018 1:16 AM RECREATION ACTIVITIES COORDINATOR BASIC METABOLIC PANEL (7) Routine 06/17/2018 1:16 AM RECREATION ACTIVITIES COORDINATOR POCT-GLUCOSE METER Routine 06/17/2018 12:52 AM RECREATION ACTIVITIES COORDINATOR PHOSPHORUS Routine 06/16/2018 8:31 PM RECREATION ACTIVITIES COORDINATOR MAGNESIUM Routine 06/16/2018 8:31 PM RECREATION ACTIVITIES COORDINATOR BASIC METABOLIC PANEL (7) Routine 06/16/2018 8:31 PM RECREATION ACTIVITIES COORDINATOR POCT-GLUCOSE METER Routine 06/16/2018 7:31 PM RECREATION ACTIVITIES COORDINATOR POCT-GLUCOSE METER Routine 06/16/2018 6:18 PM RECREATION ACTIVITIES COORDINATOR POCT-GLUCOSE METER Routine 06/16/2018 5:25 PM RECREATION ACTIVITIES COORDINATOR PHOSPHORUS Routine 06/16/2018 4:31 PM RECREATION ACTIVITIES COORDINATOR MAGNESIUM Routine 06/16/2018 4:31 PM RECREATION ACTIVITIES COORDINATOR BASIC METABOLIC PANEL (7) Routine 06/16/2018 4:31 PM RECREATION ACTIVITIES COORDINATOR POCT-GLUCOSE METER Routine 06/16/2018 4:25 PM RECREATION ACTIVITIES COORDINATOR POCT-GLUCOSE METER Routine 06/16/2018 3:04 PM RECREATION ACTIVITIES COORDINATOR POCT-GLUCOSE METER Routine 06/16/2018 2:22 PM RECREATION ACTIVITIES COORDINATOR POCT-GLUCOSE METER Routine 06/16/2018 1:13 PM RECREATION ACTIVITIES COORDINATOR PHOSPHORUS Routine 06/16/2018 12:11 PM RECREATION ACTIVITIES COORDINATOR MAGNESIUM Routine 06/16/2018 12:11 PM RECREATION ACTIVITIES COORDINATOR BASIC METABOLIC PANEL (7) Routine 06/16/2018 12:11 PM RECREATION ACTIVITIES COORDINATOR POCT-GLUCOSE METER Routine 06/16/2018 12:03 PM RECREATION ACTIVITIES COORDINATOR POCT-GLUCOSE METER Routine 06/16/2018 11:06 AM RECREATION ACTIVITIES COORDINATOR POCT-GLUCOSE METER Routine 06/16/2018 10:02 AM RECREATION ACTIVITIES COORDINATOR POCT-GLUCOSE METER Routine 06/16/2018 9:17 AM RECREATION ACTIVITIES COORDINATOR CBC W/PLT COUNT & AUTO Routine 06/16/2018 DIFFERENTIAL 8:26 AM RECREATION ACTIVITIES COORDINATOR PHOSPHORUS Routine 06/16/2018 8:26 AM RECREATION ACTIVITIES COORDINATOR MAGNESIUM Routine 06/16/2018 8:26 AM RECREATION ACTIVITIES COORDINATOR BASIC METABOLIC PANEL (7) Routine 06/16/2018 8:26 AM RECREATION ACTIVITIES COORDINATOR CBC W/PLT COUNT & AUTO Routine 06/16/2018 DIFFERENTIAL 8:26 AM RECREATION ACTIVITIES COORDINATOR POCT-GLUCOSE METER Routine 06/16/2018 8:05 AM RECREATION ACTIVITIES COORDINATOR POCT-GLUCOSE METER Routine 06/16/2018 7:10 AM RECREATION ACTIVITIES COORDINATOR POCT-GLUCOSE METER Routine 06/16/2018 6:20 AM RECREATION ACTIVITIES COORDINATOR POCT-GLUCOSE METER Routine 06/16/2018 5:19 AM RECREATION ACTIVITIES COORDINATOR FERRITIN Routine 06/16/2018 4:16 AM RECREATION ACTIVITIES COORDINATOR IRON, TIBC, % SAT. Routine 06/16/2018 (WITHOUT FERRITIN) 4:16 AM RECREATION ACTIVITIES COORDINATOR PHOSPHORUS Routine 06/16/2018 4:16 AM RECREATION ACTIVITIES COORDINATOR MAGNESIUM Routine 06/16/2018 4:16 AM RECREATION ACTIVITIES COORDINATOR BASIC METABOLIC PANEL (7) Routine 06/16/2018 4:16 AM RECREATION ACTIVITIES COORDINATOR POCT-GLUCOSE METER Routine 06/16/2018 4:14 AM RECREATION ACTIVITIES COORDINATOR POCT-GLUCOSE METER Routine 06/16/2018 2:54 AM RECREATION ACTIVITIES COORDINATOR POCT-GLUCOSE METER Routine 06/16/2018 2:12 AM RECREATION ACTIVITIES COORDINATOR POCT-GLUCOSE METER Routine 06/16/2018 1:41 AM RECREATION ACTIVITIES COORDINATOR POCT-GLUCOSE METER Routine 06/16/2018 12:46 AM RECREATION ACTIVITIES COORDINATOR PHOSPHORUS Routine 06/15/2018 11:37 PM RECREATION ACTIVITIES COORDINATOR MAGNESIUM Routine 06/15/2018 11:37 PM RECREATION ACTIVITIES COORDINATOR BASIC METABOLIC PANEL (7) Routine 06/15/2018 11:37 PM RECREATION ACTIVITIES COORDINATOR POCT-GLUCOSE METER Routine 06/15/2018 11:23 PM RECREATION ACTIVITIES COORDINATOR POCT-GLUCOSE METER Routine 06/15/2018 10:16 PM RECREATION ACTIVITIES COORDINATOR POCT-GLUCOSE METER Routine 06/15/2018 9:42 PM RECREATION ACTIVITIES COORDINATOR POCT-GLUCOSE METER Routine 06/15/2018 9:07 PM RECREATION ACTIVITIES COORDINATOR POCT-GLUCOSE METER Routine 06/15/2018 8:07 PM RECREATION ACTIVITIES COORDINATOR PHOSPHORUS Routine 06/15/2018 7:43 PM RECREATION ACTIVITIES COORDINATOR MAGNESIUM Routine 06/15/2018 7:43 PM RECREATION ACTIVITIES COORDINATOR BASIC METABOLIC PANEL (7) Routine 06/15/2018 7:43 PM RECREATION ACTIVITIES COORDINATOR POCT-GLUCOSE METER Routine 06/15/2018 7:03 PM RECREATION ACTIVITIES COORDINATOR POCT-GLUCOSE METER Routine 06/15/2018 6:16 PM RECREATION ACTIVITIES COORDINATOR POCT-GLUCOSE METER Routine 06/15/2018 5:16 PM RECREATION ACTIVITIES COORDINATOR POCT-GLUCOSE METER Routine 06/15/2018 4:29 PM RECREATION ACTIVITIES COORDINATOR POCT-GLUCOSE METER Routine 06/15/2018 3:18 PM RECREATION ACTIVITIES COORDINATOR PHOSPHORUS Routine 06/15/2018 3:08 PM RECREATION ACTIVITIES COORDINATOR MAGNESIUM Routine 06/15/2018 3:08 PM RECREATION ACTIVITIES COORDINATOR BASIC METABOLIC PANEL (7) Routine 06/15/2018 3:08 PM RECREATION ACTIVITIES COORDINATOR CREATININE, RANDOM URINE Routine 06/15/2018 3:07 PM RECREATION ACTIVITIES COORDINATOR UREA NITROGEN, RANDOM Routine 06/15/2018 URINE 3:07 PM RECREATION ACTIVITIES COORDINATOR SODIUM, RANDOM URINE Routine 06/15/2018 3:07 PM RECREATION ACTIVITIES COORDINATOR POCT-GLUCOSE METER Routine 06/15/2018 2:13 PM RECREATION ACTIVITIES COORDINATOR POCT-GLUCOSE METER Routine 06/15/2018 1:17 PM RECREATION ACTIVITIES COORDINATOR PHOSPHORUS Routine 06/15/2018 12:42 PM RECREATION ACTIVITIES COORDINATOR MAGNESIUM Routine 06/15/2018 12:42 PM RECREATION ACTIVITIES COORDINATOR BASIC METABOLIC PANEL (7) Routine 06/15/2018 12:42 PM RECREATION ACTIVITIES COORDINATOR POCT-GLUCOSE METER Routine 06/15/2018 11:53 AM RECREATION ACTIVITIES COORDINATOR POCT-GLUCOSE METER Routine 06/15/2018 10:15 AM RECREATION ACTIVITIES COORDINATOR POCT-GLUCOSE METER Routine 06/15/2018 9:21 AM RECREATION ACTIVITIES COORDINATOR PHOSPHORUS Routine 06/15/2018 8:54 AM RECREATION ACTIVITIES COORDINATOR MAGNESIUM Routine 06/15/2018 8:54 AM RECREATION ACTIVITIES COORDINATOR BASIC METABOLIC PANEL (7) Routine 06/15/2018 8:54 AM RECREATION ACTIVITIES COORDINATOR POCT-GLUCOSE METER Routine 06/15/2018 8:17 AM RECREATION ACTIVITIES COORDINATOR POCT-GLUCOSE METER Routine 06/15/2018 7:30 AM RECREATION ACTIVITIES COORDINATOR POCT-GLUCOSE METER Routine 06/15/2018 6:20 AM RECREATION ACTIVITIES COORDINATOR POCT-GLUCOSE METER Routine 06/15/2018 5:07 AM RECREATION ACTIVITIES COORDINATOR TRIGLYCERIDES Routine 06/15/2018 5:04 AM RECREATION ACTIVITIES COORDINATOR ISLET CELL AB SCR Routine 06/15/2018 5:04 AM RECREATION ACTIVITIES COORDINATOR ORLY-65 Routine 06/15/2018 5:04 AM RECREATION ACTIVITIES COORDINATOR PHOSPHORUS Routine 06/15/2018 5:04 AM RECREATION ACTIVITIES COORDINATOR MAGNESIUM Routine 06/15/2018 5:04 AM RECREATION ACTIVITIES COORDINATOR BASIC METABOLIC PANEL (7) Routine 06/15/2018 5:04 AM RECREATION ACTIVITIES COORDINATOR POCT-GLUCOSE METER Routine 06/15/2018 3:13 AM RECREATION ACTIVITIES COORDINATOR POCT-GLUCOSE METER Routine 06/15/2018 2:31 AM RECREATION ACTIVITIES COORDINATOR POCT-GLUCOSE METER Routine 06/15/2018 1:37 AM RECREATION ACTIVITIES COORDINATOR PHOSPHORUS Routine 06/15/2018 12:19 AM RECREATION ACTIVITIES COORDINATOR MAGNESIUM Routine 06/15/2018 12:19 AM RECREATION ACTIVITIES COORDINATOR BASIC METABOLIC PANEL (7) Routine 06/15/2018 12:19 AM RECREATION ACTIVITIES COORDINATOR POCT-GLUCOSE METER Routine 06/15/2018 12:08 AM RECREATION ACTIVITIES COORDINATOR POCT-GLUCOSE METER Routine 06/14/2018 10:32 PM RECREATION ACTIVITIES COORDINATOR POCT-GLUCOSE METER Routine 06/14/2018 9:25 PM RECREATION ACTIVITIES COORDINATOR COMPREHENSIVE METABOLIC STAT 06/14/2018 PANEL 8:35 PM RECREATION ACTIVITIES COORDINATOR MAGNESIUM Routine 06/14/2018 8:35 PM RECREATION ACTIVITIES COORDINATOR PHOSPHORUS Routine 06/14/2018 8:35 PM RECREATION ACTIVITIES COORDINATOR POCT-GLUCOSE METER Routine 06/14/2018 8:02 PM RECREATION ACTIVITIES COORDINATOR POCT-GLUCOSE METER Routine 06/14/2018 6:55 PM RECREATION ACTIVITIES COORDINATOR POCT-GLUCOSE METER Routine 06/14/2018 5:57 PM RECREATION ACTIVITIES COORDINATOR POCT-GLUCOSE METER Routine 06/14/2018 5:12 PM RECREATION ACTIVITIES COORDINATOR MAGNESIUM Routine 06/14/2018 3:59 PM RECREATION ACTIVITIES COORDINATOR BASIC METABOLIC PANEL (7) Routine 06/14/2018 3:59 PM RECREATION ACTIVITIES COORDINATOR POCT-GLUCOSE METER Routine 06/14/2018 3:57 PM RECREATION ACTIVITIES COORDINATOR POCT-GLUCOSE METER Routine 06/14/2018 3:00 PM RECREATION ACTIVITIES COORDINATOR URINALYSIS W/ MICROSCOPIC Routine 06/14/2018 2:57 PM RECREATION ACTIVITIES COORDINATOR GLUCOSE Routine 06/14/2018 2:16 PM RECREATION ACTIVITIES COORDINATOR POCT-GLUCOSE METER Routine 06/14/2018 2:01 PM RECREATION ACTIVITIES COORDINATOR POCT-GLUCOSE METER Routine 06/14/2018 1:28 PM RECREATION ACTIVITIES COORDINATOR POCT-GLUCOSE METER Routine 06/14/2018 12:25 PM RECREATION ACTIVITIES COORDINATOR PHOSPHORUS Routine 06/14/2018 12:05 PM RECREATION ACTIVITIES COORDINATOR MAGNESIUM Routine 06/14/2018 12:05 PM RECREATION ACTIVITIES COORDINATOR BASIC METABOLIC PANEL (7) Routine 06/14/2018 12:05 PM RECREATION ACTIVITIES COORDINATOR GLUCOSE Routine 06/14/2018 12:05 PM RECREATION ACTIVITIES COORDINATOR POCT-GLUCOSE METER Routine 06/14/2018 12:02 PM RECREATION ACTIVITIES COORDINATOR POCT-GLUCOSE METER Routine 06/14/2018 11:10 AM RECREATION ACTIVITIES COORDINATOR BLOOD GAS, VENOUS Routine 06/14/2018 10:20 AM RECREATION ACTIVITIES COORDINATOR POTASSIUM Routine 06/14/2018 10:20 AM RECREATION ACTIVITIES COORDINATOR GLUCOSE Routine 06/14/2018 10:20 AM RECREATION ACTIVITIES COORDINATOR POCT-GLUCOSE METER Routine 06/14/2018 10:11 AM RECREATION ACTIVITIES COORDINATOR KETONE, BLOOD STAT 06/14/2018 9:26 AM RECREATION ACTIVITIES COORDINATOR POCT-GLUCOSE METER Routine 06/14/2018 9:14 AM RECREATION ACTIVITIES COORDINATOR BLOOD GAS, VENOUS Routine 06/14/2018 9:07 AM RECREATION ACTIVITIES COORDINATOR LACTIC ACID, VENOUS Routine 06/14/2018 8:22 AM RECREATION ACTIVITIES COORDINATOR CBC W/PLT COUNT & AUTO STAT 06/14/2018 DIFFERENTIAL 8:20 AM RECREATION ACTIVITIES COORDINATOR TROPONIN I Routine 06/14/2018 8:20 AM RECREATION ACTIVITIES COORDINATOR HEMOGLOBIN A1C Routine 06/14/2018 8:20 AM RECREATION ACTIVITIES COORDINATOR TSH/FREE T4 IF INDICATED Routine 06/14/2018 8:20 AM RECREATION ACTIVITIES COORDINATOR LIPASE Routine 06/14/2018 8:20 AM RECREATION ACTIVITIES COORDINATOR MAGNESIUM STAT 06/14/2018 8:20 AM RECREATION ACTIVITIES COORDINATOR PHOSPHORUS STAT 06/14/2018 8:20 AM RECREATION ACTIVITIES COORDINATOR BASIC METABOLIC PANEL (7) STAT 06/14/2018 8:20 AM RECREATION ACTIVITIES COORDINATOR CBC W/PLT COUNT & AUTO STAT 06/14/2018 DIFFERENTIAL 8:20 AM RECREATION ACTIVITIES COORDINATOR GLUCOSE Routine 06/14/2018 8:20 AM RECREATION ACTIVITIES COORDINATOR POCT-GLUCOSE METER Routine 06/14/2018 8:04 AM RECREATION ACTIVITIES COORDINATOR POCT-GLUCOSE METER Routine 06/14/2018 7:40 AM RECREATION ACTIVITIES COORDINATOR after 12/09/2017 Results * RHYTHM STRIP - SCAN (06/24/2018 1:00 PM RECREATION ACTIVITIES COORDINATOR) Narrative Performed At * POC-Glucose meter (06/17/2018 2:33 PM RECREATION ACTIVITIES COORDINATOR) Only the most recent of 65 results within the time period is included. POC-Glucose Meter 135 (H)Comment: TESTED AT 70 - 110 mg/dL [facility] [address]SC [address] [facility] [address] Specimen Blood Performing Organization Address City/State/Zipcode Phone Number [place] [id number] [place] [address] [facility] * CBC with platelet count + automated diff (06/17/2018 4:38 AM RECREATION ACTIVITIES COORDINATOR) Only the most recent of 3 results within the time period is included. WBC 7.6 3.5 - 10.5 K/L [facility] RBC 2.55 (L) 3.93 - 5.22 M/L [facility] Hemoglobin 8.3 (L) 11.2 - 15.7 GM/DL [facility] Hematocrit 25.6 (L) 34.1 - 44.9 % [facility] MCV 100.4 (H) 79.4 - 94.8 fL [facility] MCH 32.5 (H) 25.6 - 32.2 pg [facility] MCHC 32.4 32.2 - 35.5 GM/DL [facility] RDW 13.5 11.7 - 14.4 % [facility] Platelets 148 (L) 150 - 450 K/CU MM [facility] MPV 13.4 (H) 9.4 - 12.3 fL [facility] nRBC 0 0 - 0 /100 WBC [facility] % Neutros 56 % [facility] % Lymphs 34 % [facility] % Monos 5 % [facility] % Eos 4 % [facility] % Baso 1 % [facility] # Neutros 4.22 1.56 - 6.13 K/L [facility] # Lymphs 2.58 1.18 - 3.74 K/L [facility] # Monos 0.38 (H) 0.24 - 0.36 K/L [facility] # Eos 0.28 0.04 - 0.36 K/L [facility] # Baso 0.06 0.01 - 0.08 K/L [facility] Immature 0 0 - 1 % [facility] Granulocytes-Relative [facility] Specimen Blood Performing Organization Address City/State/Zipcode Phone Number [facility] [address] [place] [address] [facility] * Phosphorus (06/17/2018 4:38 AM RECREATION ACTIVITIES COORDINATOR) Only the most recent of 17 results within the time period is included. Phosphorus 3.6Comment: Specimen slightly 2.3 - 4.7 mg/dL [facility] Specimen Blood Performing Organization Address [facility] Phone Number [address] * Magnesium (06/17/2018 4:38 AM RECREATION ACTIVITIES COORDINATOR) Only the most recent of 18 results within the time period is included. Magnesium 2.1Comment: Specimen slightly 1.6 - 2.6 mg/dL [facility] Specimen Blood Performing Organization Address [facility] Phone Number [address] * Basic Metabolic Panel (06/17/2018 4:38 AM RECREATION ACTIVITIES COORDINATOR) Only the most recent of 17 results within the time period is included. Sodium 135 (L) 136 - 145 meq/L [facility] Potassium 4.6Comment: Specimen slightly 3.5 - 5.1 meq/L [facility] Chloride 113 (H) 98 - 107 meq/L [facility] CO2 17 (L) 22 - 29 meq/L [facility] BUN 31 (H) 7 - 21 mg/dL [facility] Creatinine 1.59 (H)Comment: Specimen 0.57 - 1.25 mg/dL [facility] Glucose 200 (H) 70 - 105 mg/dL [facility] Calcium 7.0 (L) 8.4 - 10.2 mg/dL [facility] EGFR Comment: INSUFFICIENT CLINICAL mL/min/1.[address] [facility] DATA TO CALCULATE ESTIMATED [facility] GFR. Specimen Blood Performing Organization Address City/State/[facility] Cent[facility] Phone Number [phone] [place] [address] * Iron, TIBC, % sat. (without ferritin) (06/16/2018 4:16 AM RECREATION ACTIVITIES COORDINATOR) Iron 60 40 - 160 ug/dL [facility] TIBC 196 (L) 250 - 450 ug/dL [facility] Iron % Saturation 31 20 - 55 % [facility] Specimen Blood Performing Organization Address [facility] Cent[facility] Phone Number [phone] [place] [address] * Ferritin (06/16/2018 4:16 AM RECREATION ACTIVITIES COORDINATOR) Ferritin 101 5 - 275 ng/mL [facility] Specimen Blood Performing Organization Address [facility] Phone Number [address] * Urea Nitrogen, random urine (06/15/2018 3:07 PM RECREATION ACTIVITIES COORDINATOR) Urea Nitrogen, Ur 239 mg/dL [facility] Specimen Urine Narrative Performed At Reference Range: No Normals [facility] Performing Organization Address [facility] Phone Number [address] * Sodium, random urine (06/15/2018 3:07 PM RECREATION ACTIVITIES COORDINATOR) Sodium Urine 95 meq/L [facility] Specimen Urine Narrative Performed At Reference Range: No Normals [facility] Performing Organization Address [facility] Phone Number [address] * Creatinine, random urine (06/15/2018 3:07 PM RECREATION ACTIVITIES COORDINATOR) Creatinine, Ur 29.3 mg/dL [facility] Specimen Urine Narrative Performed At Reference Range: No Normals [facility] Performing Organization Address City/[facility]/Zipcode Phone Number [place] [id number] [place], [place] [address] [phone] * ORLY-65 (06/15/2018 5:04 AM RECREATION ACTIVITIES COORDINATOR) ORLY-65 >250 (H) <5 IU/mL [facility] Comment: INC[facility]PORATED This test was performed using the GAD65 PEBBLES method. New method, PEBBLES, is standardized against the International reference preparation 97/550, is reported in International Units/mL (IU/mL) and a new reference range was implemented. Specimen Blood Narrative Performed At Performing Lab [facility] [employer] [employer] [place] [id number] [place], [place] [id number] Tanisha Chow MD, PhD, SERVANDO Performing Organization Address [facility] Phone Number [facility] [employer] [place], [address] [facility] [address] * Islet Cell AB Screen (06/15/2018 5:04 AM RECREATION ACTIVITIES COORDINATOR) Islet Cell Ab Profile Refer to individual Islet Cell [facility] Ab and/or Islet Cell Ab [employer] results. Specimen Blood Narrative Performed At Performing Organization Address [facility]ori Phone Number [facility] [employer] [place], [address] [facility] [address] * Triglycerides (06/15/2018 5:04 AM RECREATION ACTIVITIES COORDINATOR) Triglycerides 170Comment: Specimen slightly mg/dL [facility] Specimen Blood Narrative Performed At [facility]IGLY[facility]ERIDE REFERENCE R[facility] Low Risk<150 [facility] Borderline Risk 150-199 High [id number] Very High Risk >=500 Performing Organization Address [facility]/Zipcode Phone Number [address] [address] [phone] [place] [address] * Comprehensive metabolic panel (06/14/2018 8:35 PM RECREATION ACTIVITIES COORDINATOR) Protein, Total 5.8 (L)Comment: Specimen 6.0 - 8.3 gm/dL [facility] Albumin 2.6 (L)Comment: Specimen 3.5 - 5.0 g/dL [facility] moderately hemolyzed [facility] Alkaline Phosphatase 96 40 - 150 U/L [facility] Total Bilirubin 0.1 (L)Comment: Specimen 0.2 - 1.2 mg/dL [facility] hemolyzed [facility] Sodium 137 136 - 145 meq/L [facility] Potassium 4.8Comment: Specimen 3.5 - 5.1 meq/L [facility] moderately hemolyzed [facility] Chloride 118 (H) 98 - 107 meq/L [facility] CO2 14 (L) 22 - 29 meq/L [facility] BUN 28 (H) 7 - 21 mg/dL [facility] Creatinine 1.57 (H)Comment: Specimen 0.57 - 1.25 mg/dL [facility] moderately hemolyzed [facility] Glucose 111 (H) 70 - 105 mg/dL [facility] Calcium 7.7 (L) 8.4 - 10.2 mg/dL [facility] AST 21Comment: Specimen moderately 5 - 34 U/L [facility] ALT 11Comment: Specimen moderately 6 - 55 U/L [facility] EGFR Comment: INSUFFICIENT CLINICAL mL/min/1.[address] [facility] DATA TO CALCULATE ESTIMATED [facility] GFR. Specimen Blood Performing Organization Address City/State/Zipcode Phone Number [facility] [address] [place] [address] MEDICAL [facility]ENTER * Urinalysis w/ Microscopic (06/14/2018 2:57 PM RECREATION ACTIVITIES COORDINATOR) Color, UA Colorless [facility] Clarity, UA Clear [facility] Specific [place], UA 1.006 1.001 - 1.035 [facility] pH, UA 6.0 5.0 - 8.0 [facility] Protein, UA 100 mg/dL (A) Negative [facility] Glucose, UA 500 mg/dL (A) Negative [facility] Ketones, UA Negative Negative [facility] Bilirubin, UA Negative Negative [facility] Blood, UA Negative Negative [facility] Nitrite, UA Negative Negative [facility] Leukocytes, UA Negative Negative [facility] Urobilinogen, UA 0.2 0.2 - 1.0 mg/dL [facility] RBC, UA <1 /HPF [facility] WBC, UA 1 /HPF [facility] Bacteria, UA Rare [facility] Squam Epithel, UA 2 /HPF [facility] Specimen Source Urine, Voided [facility] Specimen Urine Performing Organization Address City/State/Zipcode Phone Number [place] [phone] * Glucose, serum (06/14/2018 2:16 PM RECREATION ACTIVITIES COORDINATOR) Only the most recent of 4 results within the time period is included. Glucose 187 (H) 70 - 105 mg/dL [facility] Specimen Blood Narrative Performed At If last glucose was less than 500, may do bedside glucose instead of serum [facility] glucose. [facility] Performing Organization Address City/State/[place] [address] [facility] * Potassium (06/14/2018 10:20 AM RECREATION ACTIVITIES COORDINATOR) Potassium 4.1 3.5 - 5.1 meq/L [facility] Specimen Blood Narrative Performed At If last glucose was less than 500, may do bedside glucose instead of serum [facility] glucose. [facility] Performing Organization Address City/[facility] Cent[facility] Phone Number [address] [phone] [facility] * Blood gas, venous (06/14/2018 10:20 AM RECREATION ACTIVITIES COORDINATOR) Only the most recent of 2 results within the time period is included. pH, Anton 7.25 (L) 7.32 - 7.42 [facility] pCO2, Anton 41 41 - 51 mmHg [facility] pO2, Anton 24 (L) 25 - 40 mmHg [facility] O2 Sat, Anton 35.6 (L) 40.0 - 70.0 % [facility] HCO3, Anton 17 (L) 21 - 29 mmol/L [facility] Base Excess, Anton -9.4 (L) -2.0 - 3.0 mmol/L [facility] Patient Temperature 36.7 C [facility] FIO2 100.0 % [facility] Specimen Blood Performing Organization Address [facility] Centercode Phone Number [address] [address] [facility] * Ketone, blood (06/14/2018 9:26 AM RECREATION ACTIVITIES COORDINATOR) Ketones, Blood 0.1 <0.4 mmol/L [facility] Specimen Blood Performing Organization Address City/[facility]/Zipcode Phone Number [address] [address] [facility] * Lactic acid, venous, whole blood (06/14/2018 8:22 AM RECREATION ACTIVITIES COORDINATOR) Lactate, Venous 3.0 (H)Comment: Specimen 0.5 - 2.2 mmol/L [facility] slightly hemolyzed [facility] Specimen Blood Performing Organization Address City/[facility]/Zipcode Phone Number [address] [address] [phone] * TSH/Free T4 If Indicated (06/14/2018 8:20 AM RECREATION ACTIVITIES COORDINATOR) TSH 3.12 0.35 - 4.94 uIU/mL [facility] Specimen Blood Performing Organization Address City/[facility] Centercode Phone Number [address] [address] [phone] [place] [address] * Troponin I (06/14/2018 8:20 AM RECREATION ACTIVITIES COORDINATOR) Troponin I 0.01 0.00 - 0.03 ng/mL [facility] Specimen Blood Narrative Performed At If last glucose was less than 500, may do bedside glucose instead of serum [facility] glucose[facility] Performing Organization Address [facility] Centercode Phone Number [address] * Lipase (06/14/2018 8:20 AM RECREATION ACTIVITIES COORDINATOR) Lipase 154 (H) 8 - 78 U/L [facility] Specimen Blood Narrative Performed At If last glucose was less than 500, may do bedside glucose instead of serum [facility] glucose. [facility] Performing Organization Address City/[facility] Centercode Phone Number [address] [phone] [place] [address] * Hemoglobin A1c (06/14/2018 8:20 AM RECREATION ACTIVITIES COORDINATOR) Hemoglobin A1C 12.2 (H) 4.3 - 6.1 % [facility] Specimen Blood Performing Organization Address City/[facility] Centercode Phone Number [address] [address] [phone] [place] [address] after 12/09/2017
--- NOTE | 2018-12-10 09:12 | NUR ---
PATIENT ASSISTED TO BATHROOM, SLIGHTLY UNSTEADY. SHE STATED SHE IS TIRED MEAL TRAY SET UP, SON IS ASSISTING PLACED BEAR HUGGER ON PATIENT. TEMP 94.1 RECTAL
[2018-12-10 09:15] LABS: BASOPHILS # (AUTO) 0.1 (0.0-0.1); BASOPHILS % 0.7 % (0.0-1.0); EOSINOPHILS # (AUTO) 0.4 (0.0-0.4); EOSINOPHILS % 4.1 % (0.0-6.0); HEMATOCRIT 36.1 % (34.2-44.1); HEMOGLOBIN 11.7 g/dL (12.0-16.0); LYMPHOCYTES # (AUTO) 1.5 (1.0-3.2); LYMPHOCYTES % 16.7 % (18.0-39.1); MEAN CORPUSCULAR HEMOGLOBIN 30.2 pg (28-32); MEAN CORPUSCULAR HGB CONC 32.4 g/dL (31-35); MEAN CORPUSCULAR VOLUME 93.3 fL (81-99); MONOCYTES # (AUTO) 0.5 (0.2-0.8); NEUTROPHILS # (AUTO) 6.3 (2.1-6.9); NEUTROPHILS % 71.8 % (38.7-80.0); PLATELET COUNT 226 x10e3/uL (140-360); RED BLOOD COUNT 3.87 x10e6/uL (3.6-5.1); RED CELL DISTRIBUTION WIDTH 14.5 % (11.7-14.4)
[2018-12-10 09:23] LABS: ALBUMIN 2.1 g/dL (3.5-5.0); ALBUMIN/GLOBULIN RATIO 0.6 (0.8-2.0); CALCIUM 8.2 mg/dL (8.4-10.2); CREATININE, SERUM 1.9 mg/dL (0.57-1.11)
[2018-12-10 09:35] LABS: BILIRUBIN,URINE NEGATIVE (NEGATIVE); KETONES,URINE NEGATIVE (NEGATIVE); LEUKOCYTE ESTERASE ,URINE NEGATIVE (NEGATIVE); NITRITE,URINE NEGATIVE (NEGATIVE); URINE UROBILINOGEN 0.2 mg/dL (0.2 - 1)
[2018-12-10 09:40] LABS: CLARITY,URINE HAZY (CLEAR); COLOR,URINE YELLOW (YELLOW); PROTEIN,URINE DIPSTICK 3+ (NEGATIVE)
[2018-12-10 09:49] LABS: BACTERIA,URINE FEW /HPF; EPITHELIAL CELLS,URINE FEW /LPF
--- NOTE | 2018-12-10 10:30 | NUR ---
PATIENT SLEEPING EASILY AWAKENED. SPOKE WITH HER SON, HE SAID THEIR NORMAL BEDTIME IS 3 AM, THIS IS WHY SHE TOOK HER INSULIN AT 2 AM
--- NOTE | 2018-12-10 10:34 | NUR ---
DR. HANLEY AWARE. PATIENT RECTAL TEMP 94.7, UNABLE TO GET ORALLY OR AXILLARY BLOOD SUGAR 151
--- NOTE | 2018-12-10 11:56 | NUR ---
PATIENT AMBULATED OUT ON HER OWN, NO DIFFICULTY
== END 2018-12-10 11:58 | disposition home or self-care (01) ==
LOC: ER 08:32
DX: E11.649 Type 2 diabetes mellitus with hypoglycemia without coma (principal)
CPT/HCPCS: 36415; 80053; 81001; 82948; 83605; 85025; 99284

== ENCOUNTER 2021-01-13 16:05 | Observation (INO) | payer MEDICARE, OTHER ==
[~2021-01-13] VITALS: Ht 162.6 cm; Wt 82.1 kg
[2021-01-13 17:39] LABS: BASOPHILS % 0.5 % (0.0-1.0); EOSINOPHILS # (AUTO) 0.1 (0.0-0.4); EOSINOPHILS % 0.8 % (0.0-6.0); HEMOGLOBIN 9.5 g/dL (12.0-16.0); LYMPHOCYTES # (AUTO) 1.1 (1.0-3.2); LYMPHOCYTES % 12.2 % (18.0-39.1); MEAN CORPUSCULAR HEMOGLOBIN 29.8 pg (28-32); MEAN CORPUSCULAR HGB CONC 33.9 g/dL (31-35); MEAN CORPUSCULAR VOLUME 87.8 fL (81-99); MONOCYTES # (AUTO) 0.5 (0.2-0.8); MONOCYTES % 5.9 % (4.4-11.3); NEUTROPHILS % 80.1 % (38.7-80.0); PLATELET COUNT 256 x10e3/uL (140-360); RED BLOOD COUNT 3.19 x10e6/uL (3.6-5.1); RED CELL DISTRIBUTION WIDTH 13.1 % (11.7-14.4)
[2021-01-13 17:48] LABS: INR 0.82; PROTHROMBIN TIME 11.8 seconds (11.9-14.5)
[2021-01-13 17:49] LABS: PARTIAL THROMBOPLASTIN TIME 24.7 seconds (23.8-35.5)
[2021-01-13 17:55] LABS: ALBUMIN 3.2 g/dL (3.5-5.0); ALBUMIN/GLOBULIN RATIO 0.8 (0.8-2.0); ANION GAP 17.9 mmol/L (8-16); CALCIUM 7.8 mg/dL (8.4-10.2); CREATININE, SERUM 2.99 mg/dL (0.57-1.11); MAGNESIUM 1.7 MG/DL (1.3-2.1); PHOSPHORUS 2.9 MG/DL (2.3-4.7)
[2021-01-13 17:57] LABS: POTASSIUM 2.9 mmol/L (3.5-5.1)
[2021-01-13 18:04] LABS: CREATINE KINASE MB 1.8 ng/mL (0-5.0)
[2021-01-14] VITALS (11 sets, daily range): BP systolic 100–137; BP diastolic 60–70
[2021-01-14] MEDS ORDERED: MELATONIN 5 MG TABLET PO PRN (01:15)
[2021-01-14] MEDS ORDERED: DEXTROSE 50% SYRINGE 50 ML IV PRN ×3 (01:15→07:45)
[2021-01-14] MEDS ORDERED: DOCUSATE SODIUM 100 MG CAP PO PRN (01:15)
[2021-01-14] MEDS ORDERED: DIPHENHYDRAMINE HCL 25 MG CAP PO PRN (01:15)
[2021-01-14] MEDS ORDERED: ACETAMINOPHEN 325 MG TAB PO PRN (01:15)
[2021-01-14] MEDS ORDERED: ONDANSETRON HCL INJ 2MG/ML 2ML 2 MG/ML VIAL IV PRN (01:15)
[2021-01-14] MEDS ORDERED: ALBUTEROL/IPRATROPIUM 3 ML NEB NEB PRN (01:15)
[2021-01-14] MEDS ORDERED: HYDRALAZINE HCL 20 MG/ML VIAL IV PRN (01:15)
[2021-01-14] MEDS ORDERED: ASPIRIN 81 MG CHEW TAB PO ONE (01:15)
[2021-01-14] MEDS ORDERED: LIDOCAINE 4% PATCH TP PRN (01:15)
[2021-01-14] MEDS ORDERED: POTASSIUM CHLORIDE 20 MEQ TAB CR PO PRN (01:15)
[2021-01-14] MEDS ORDERED: LYRICA100 MG PO (02:25)
[2021-01-14] MEDS ORDERED: MIRAPEX0.25 MG PO (02:25)
[2021-01-14] MEDS ORDERED: BRILINTA90 MG PO (02:25)
[2021-01-14] MEDS ORDERED: CALCIUM CARBON500 MG PO (02:25)
[2021-01-14] MEDS ORDERED: ZOLOFT100 MG PO (02:25)
[2021-01-14] MEDS ORDERED: FUROSEMIDE40 MG PO (02:25)
[2021-01-14] MEDS ORDERED: MIRTAZAPINE15 MG PO (02:25)
[2021-01-14] MEDS ORDERED: ULTRAM50 MG PO (02:25)
[2021-01-14] MEDS ORDERED: SERTRALINE HCL50 MG PO (02:25)
[2021-01-14] MEDS ORDERED: ASPIRIN81 MG PO (02:25)
[2021-01-14] MEDS ORDERED: METOCLOPRAM5 MG/5 ML PO (02:25)
[2021-01-14] MEDS ORDERED: LOSARTAN POTASS25 MG PO (02:25)
[2021-01-14] MEDS ORDERED: PANTOPRAZOLE SO40 MG PO (02:25)
[2021-01-14] MEDS ORDERED: ATORVASTATIN CA40 MG PO (02:25)
[2021-01-14] MEDS ORDERED: AMBIEN5 MG PO (02:25)
[2021-01-14 04:45] LABS: BASOPHILS % 0.3 % (0.0-1.0); EOSINOPHILS # (AUTO) 0.1 (0.0-0.4); EOSINOPHILS % 1.7 % (0.0-6.0); HEMATOCRIT 25.5 % (34.2-44.1); HEMOGLOBIN 8.5 g/dL (12.0-16.0); LYMPHOCYTES # (AUTO) 1.3 (1.0-3.2); LYMPHOCYTES % 20.8 % (18.0-39.1); MEAN CORPUSCULAR HEMOGLOBIN 29.9 pg (28-32); MEAN CORPUSCULAR HGB CONC 33.3 g/dL (31-35); MEAN CORPUSCULAR VOLUME 89.8 fL (81-99); MONOCYTES # (AUTO) 0.5 (0.2-0.8); NEUTROPHILS # (AUTO) 4.4 (2.1-6.9); NEUTROPHILS % 68.9 % (38.7-80.0); PLATELET COUNT 213 x10e3/uL (140-360); RED BLOOD COUNT 2.84 x10e6/uL (3.6-5.1); RED CELL DISTRIBUTION WIDTH 13.2 % (11.7-14.4)
[2021-01-14 05:40] LABS: CHOL/HDL RATIO 1.8 (3.0-3.6); MAGNESIUM 1.8 MG/DL (1.3-2.1); PHOSPHORUS 3.4 MG/DL (2.3-4.7)
[2021-01-14 05:49] LABS: THYROID STIMULATING HORMONE 1.46 uIU/mL (0.350-4.940)
[2021-01-14 06:32] LABS: ALBUMIN 2.7 g/dL (3.5-5.0); ALBUMIN/GLOBULIN RATIO 0.8 (0.8-2.0); ANION GAP 14.2 mmol/L (8-16); CALCIUM 7.3 mg/dL (8.4-10.2); CREATININE, SERUM 3.91 mg/dL (0.57-1.11); POTASSIUM 3.2 mmol/L (3.5-5.1)
[2021-01-14] MEDS: PANTOPRAZOLE SOD 40 MG TABEC PO SCH (07:30)
[2021-01-14] MEDS: LISINOPRIL 10 MG TAB PO SCH (09:41)
[2021-01-14] MEDS: ASPIRIN 81 MG ENTERIC COATED PO SCH (09:41)
[2021-01-14] MEDS ORDERED: LEVEMIR FL100 UNIT/1 SC (09:45)
[2021-01-14] MEDS ORDERED: INSULIN LISPRO 100 UNIT/1 ML 3ML VIAL SQ ONE (11:30)
[2021-01-14] MEDS: INSULIN LISPRO 100 UNIT/1 ML 3ML VIAL SQ SCH ×3 (11:48→20:17)
[2021-01-14] MEDS ORDERED: ZOLPIDEM TARTRATE 5 MG TAB PO PRN (15:00)
[2021-01-14] MEDS: GABAPENTIN 100 MG CAP PO SCH ×2 (15:11→20:11)
[2021-01-14] MEDS: INSULIN GLARGINE 100 UNITS/ML VIAL SQ SCH (15:13)
[2021-01-14 16:32] LABS: CHOL/HDL RATIO 1.9 (3.0-3.6)
[2021-01-14] MEDS: PREGABALIN 75 MG CAP PO SCH (16:43)
[2021-01-14] MEDS: METOCLOPRAMIDE HCL 10MG/10ML UDC PO SCH ×2 (17:04→20:12)
[2021-01-14] MEDS: TICAGRELOR 90 MG TABLET PO SCH (20:11)
[2021-01-14] MEDS ORDERED: ATORVASTATIN 40 MG TAB PO SCH (21:00)
[2021-01-14] MEDS ORDERED: PRAMIPEXOLE DIHYDROCHLORIDE 0.25 MG TAB PO SCH (21:00)
[2021-01-15] VITALS: BP 132/74
[2021-01-15 04:00] VITALS: BP 113/64
[2021-01-15 05:50] LABS: BASOPHILS % 0.4 % (0.0-1.0); EOSINOPHILS # (AUTO) 0.2 (0.0-0.4); EOSINOPHILS % 2.1 % (0.0-6.0); HEMATOCRIT 27.9 % (34.2-44.1); HEMOGLOBIN 9.1 g/dL (12.0-16.0); LYMPHOCYTES # (AUTO) 2.2 (1.0-3.2); LYMPHOCYTES % 31.1 % (18.0-39.1); MEAN CORPUSCULAR HEMOGLOBIN 29.6 pg (28-32); MEAN CORPUSCULAR HGB CONC 32.6 g/dL (31-35); MEAN CORPUSCULAR VOLUME 90.9 fL (81-99); MONOCYTES # (AUTO) 0.4 (0.2-0.8); NEUTROPHILS # (AUTO) 4.2 (2.1-6.9); PLATELET COUNT 245 x10e3/uL (140-360); RED BLOOD COUNT 3.07 x10e6/uL (3.6-5.1); RED CELL DISTRIBUTION WIDTH 13.9 % (11.7-14.4)
[2021-01-15 06:12] LABS: ANION GAP 15.4 mmol/L (8-16); CALCIUM 7.4 mg/dL (8.4-10.2); CREATININE, SERUM 4.15 mg/dL (0.57-1.11); POTASSIUM 3.4 mmol/L (3.5-5.1)
[2021-01-15] MEDS ORDERED: PANTOPRAZOLE SOD 40 MG TABEC PO SCH (07:30)
[2021-01-15 07:48] VITALS: BP 117/59
[2021-01-15] MEDS: PANTOPRAZOLE SOD 40 MG TABEC PO SCH (08:22)
[2021-01-15] MEDS: GABAPENTIN 100 MG CAP PO SCH (08:23)
[2021-01-15] MEDS: ASPIRIN 81 MG ENTERIC COATED PO SCH (08:23)
[2021-01-15] MEDS: TICAGRELOR 90 MG TABLET PO SCH (08:23)
[2021-01-15] MEDS: PREGABALIN 75 MG CAP PO SCH (08:23)
[2021-01-15] MEDS: METOCLOPRAMIDE HCL 10MG/10ML UDC PO SCH ×2 (08:24→12:41)
[2021-01-15] MEDS: LISINOPRIL 10 MG TAB PO SCH (08:24)
[2021-01-15 08:52] VITALS: BP 117/59
[2021-01-15] MEDS ORDERED: SERTRALINE HCL 50 MG TAB PO SCH (09:00)
[2021-01-15] MEDS: INSULIN GLARGINE 100 UNITS/ML VIAL SQ SCH (09:00)
[2021-01-15] MEDS ORDERED: INSULIN GLARGINE 100 UNITS/ML VIAL SQ SCH (09:00)
[2021-01-15] MEDS ORDERED: ASPIRIN 81 MG CHEW TAB PO SCH (09:00)
[2021-01-15] MEDS ORDERED: CLOPIDOGREL BISULFATE 75 MG TAB PO SCH (09:00)
[2021-01-15] MEDS: INSULIN LISPRO 100 UNIT/1 ML 3ML VIAL SQ SCH ×2 (09:58→11:30)
[2021-01-15 12:52] VITALS: BP 103/59
[2021-01-15 13:23] VITALS: BP_SYST 103; BP_SYST 83; BP_DIAS 41; BP_DIAS 59
== END 2021-01-15 15:32 | disposition home or self-care (01) ==
LOC: ER 17:09 → ERHOLD 20:07 → MED/SURG2 23:12
PROVIDERS: ADMIT Internal Medicine; ATTEND Internal Medicine
DX: G81.94 Hemiplegia, unspecified affecting left nondominant side (principal); E66.01 Morbid (severe) obesity due to excess calories; Z68.31 Body mass index [BMI] 31.0-31.9, adult; E11.22 Type 2 diabetes mellitus with diabetic chronic kidney disease; I12.0 Hypertensive chronic kidney disease with stage 5 chronic kidney disease or end stage renal disease; N18.6 End stage renal disease; Z99.2 Dependence on renal dialysis; Z79.899 Other long term (current) drug therapy; I25.10 Atherosclerotic heart disease of native coronary artery without angina pectoris; Z95.5 Presence of coronary angioplasty implant and graft; E11.43 Type 2 diabetes mellitus with diabetic autonomic (poly)neuropathy; K31.84 Gastroparesis; E11.65 Type 2 diabetes mellitus with hyperglycemia; Z20.822 Contact with and (suspected) exposure to COVID-19; J44.9 Chronic obstructive pulmonary disease, unspecified; E11.40 Type 2 diabetes mellitus with diabetic neuropathy, unspecified
CPT/HCPCS: 36415 ×3; 70450; 70551; 71045; 80048; 80053 ×2; 80061; 82550; 82553; 82948 ×3; 83036; 83735 ×2; 83880; 84100 ×2; 84443; 84484 ×2; 85025 ×3; 85610; 85730; 93005; 93306; 93880; 97116; 97161; 99284; G0378 ×3; J1815; J8597 ×2; S0164 ×2; U0002

== ENCOUNTER 2021-07-16 15:52 | Emergency (ER) | payer MEDICARE ==
[~2021-07-16] VITALS: Ht 162.6 cm; Wt 90.7 kg
[~2021-07-16 15:52] MED LIST changes: +AMBIEN5 MG PO; +ASPIRIN81 MG PO; +ATORVASTATIN CA40 MG PO; +BRILINTA90 MG PO; +CALCIUM CARBON500 MG PO; +FUROSEMIDE40 MG PO; +LEVEMIR FL100 UNIT/1 SC; +LOSARTAN POTASS25 MG PO; +LYRICA100 MG PO; +METOCLOPRAM5 MG/5 ML PO; +MIRAPEX0.25 MG PO; +MIRTAZAPINE15 MG PO; +PANTOPRAZOLE SO40 MG PO; +SERTRALINE HCL50 MG PO; +ZOLOFT100 MG PO
[2021-07-16] MEDS ORDERED: PROAIR HFA INH8.5 GM PEG (18:11)
[2021-07-16] MEDS ORDERED: TESSALON PERLE100 MG PO (18:11)
== END 2021-07-16 18:31 | disposition home or self-care (01) ==
LOC: ER 16:02
DX: U07.1 COVID-19 (principal); R05.9 Cough, unspecified; I12.0 Hypertensive chronic kidney disease with stage 5 chronic kidney disease or end stage renal disease; E11.22 Type 2 diabetes mellitus with diabetic chronic kidney disease; N18.6 End stage renal disease; Z99.2 Dependence on renal dialysis; D64.9 Anemia, unspecified; K21.9 Gastro-esophageal reflux disease without esophagitis
CPT/HCPCS: 71045; 99283; U0002

== ENCOUNTER 2024-04-06 11:18 | Observation (INO) | payer MEDICARE ==
[~2024-04-06] VITALS: Ht 162.6 cm; Wt 95.8 kg
[~2024-04-06 11:18] MED LIST changes: +COREG3.125 MG PO; +HYDROCODON-ACE1 EAC9 PO; +HYDROXYZINE HCL25 MG PO; +LOPERAMIDE2 MG PO; +MEDROL4 MG PO; +NITROGLYCERIN0.4 MG SL; +ONDANSETRON HCL8 MG; +PROAIR HFA INH8.5 GM PEG
[2024-04-06 11:27] VITALS: TEMP 97
[2024-04-06 13:09] LABS: BASOPHILS # (AUTO) 0.1 (0.0-0.1); BASOPHILS % 0.4 % (0.0-1.0); EOSINOPHILS # (AUTO) 0.2 (0.0-0.4); EOSINOPHILS % 1.1 % (0.0-6.0); HEMATOCRIT 28.6 % (34.2-44.1); HEMOGLOBIN 8.9 g/dL (12.0-16.0); LYMPHOCYTES # (AUTO) 1.4 (1.0-3.2); MEAN CORPUSCULAR HEMOGLOBIN 31.6 pg (28-32); MEAN CORPUSCULAR HGB CONC 31.1 g/dL (31-35); MEAN CORPUSCULAR VOLUME 101.4 fL (81-99); MONOCYTES # (AUTO) 0.5 (0.2-0.8); MONOCYTES % 3.8 % (4.4-11.3); NEUTROPHILS # (AUTO) 11.8 (2.1-6.9); PLATELET COUNT 278 x10e3/uL (140-360); RED BLOOD COUNT 2.82 x10e6/uL (3.6-5.1); RED CELL DISTRIBUTION WIDTH 16.6 % (11.7-14.4); WHITE BLOOD COUNT 14.06 x10e3/uL (4.8-10.8)
[2024-04-06 13:27] LABS: ALBUMIN 3.2 g/dL (3.5-5.0); ALBUMIN/GLOBULIN RATIO 0.7 (0.8-2.0); ANION GAP 26.3 mmol/L (8-16); BILIRUBIN,TOTAL 0.4 mg/dL (0.2-1.2); CREATININE, SERUM 11.43 mg/dL (0.57-1.11); TOTAL PROTEIN 7.6 g/dL (6.5-8.1)
[2024-04-06 13:39] LABS: POTASSIUM 5.3 mmol/L (3.5-5.1)
[2024-04-06] MEDS ORDERED: SODIUM CHLORIDE FLUSH 10 ML SYR INJ PRN (14:45)
[2024-04-06 15:25] VITALS: PULSE 84; RESP 16; O2SAT 98
[2024-04-06] MEDS: ALBUTEROL SULF 0.083% NEB SOLN 3 ML NEB NEB STA (15:25)
[2024-04-06] MEDS: CALCIUM GLUC 1 G/50 ML NACL 100 ML IV ONE (16:13)
[2024-04-06] MEDS: INSULIN REGULAR, HUMAN 100 UNIT/1 ML SQ ONE (16:21)
[2024-04-06] MEDS: SODIUM BICARBONATE 8.4% INJ 50 ML SYR IV ONE (16:21)
[2024-04-06] MEDS ORDERED: MUPIROCIN 2% OINT 22 GM TUBE TOP SCH (16:45)
[2024-04-06] MEDS: MUPIROCIN 2% OINT 22 GM TUBE NS SCH (17:00)
[2024-04-06] MEDS: ONDANSETRON HCL INJ 2MG/ML 2ML 2 MG/ML VIAL IV PRN (17:41)
[2024-04-06] MEDS: FAMOTIDINE 20 MG/2 ML VIAL IV STA (17:42)
[2024-04-06] MEDS ORDERED: DEXTROSE 50% SYRINGE 50 ML IV PRN (18:30)
[2024-04-06] MEDS: DILTIAZEM HCL 5 MG/ML 5 ML VIAL IV ONE (18:36)
[2024-04-06] MEDS: DILTIAZEM HCL IV SOLN 125 MG in SODIUM CHLORIDE 0.9% 100 ML IV SCH (18:36)
[2024-04-06] MEDS: METOCLOPRAMIDE HCL 10 MG/2ML VIAL IV ONE (18:57)
[2024-04-06 19:19] VITALS: PULSE 82; RESP 16; O2SAT 98
[2024-04-06] MEDS: HYDROCODONE/APAP 10MG-325MG TAB PO PRN (19:22)
[2024-04-06] MEDS ORDERED: ZOLPIDEM TARTRATE 5 MG TAB PO PRN (21:00)
[2024-04-06] MEDS ORDERED: HYDRALAZINE HCL 20 MG/ML VIAL IV PRN (22:30)
[2024-04-06] MEDS: INSULIN REGULAR, HUMAN 100 UNIT/1 ML SQ SCH (22:31)
[2024-04-06] MEDS: ATORVASTATIN 40 MG TAB PO SCH (22:37)
[2024-04-06] MEDS: CARVEDILOL 3.125 MG TAB PO SCH (22:38)
[2024-04-06 23:08] VITALS: BP 165/73; PULSE 80; RESP 19; TEMP 98.3; O2SAT 96
[2024-04-06 23:12] VITALS: PULSE 82; RESP 18
[2024-04-07] VITALS (59 sets, daily range): BP systolic 95–167; BP diastolic 49–90; PULSE 64–87; RESP 8–23; TEMP 97.8–98.3; O2SAT 91–100
[2024-04-07] MEDS: INSULIN GLARGINE 100 UNITS/ML VIAL SQ ONE (00:08)
[2024-04-07 06:34] LABS: BASOPHILS % 0.2 % (0.0-1.0); EOSINOPHILS # (AUTO) 0.2 (0.0-0.4); EOSINOPHILS % 1.2 % (0.0-6.0); HEMATOCRIT 28.2 % (34.2-44.1); HEMOGLOBIN 8.8 g/dL (12.0-16.0); LYMPHOCYTES # (AUTO) 1.6 (1.0-3.2); LYMPHOCYTES % 12.2 % (18.0-39.1); MEAN CORPUSCULAR HEMOGLOBIN 31.8 pg (28-32); MEAN CORPUSCULAR HGB CONC 31.2 g/dL (31-35); MEAN CORPUSCULAR VOLUME 101.8 fL (81-99); MONOCYTES # (AUTO) 0.7 (0.2-0.8); MONOCYTES % 5.6 % (4.4-11.3); NEUTROPHILS # (AUTO) 10.1 (2.1-6.9); PLATELET COUNT 241 x10e3/uL (140-360); RED BLOOD COUNT 2.77 x10e6/uL (3.6-5.1); RED CELL DISTRIBUTION WIDTH 16.7 % (11.7-14.4); WHITE BLOOD COUNT 12.68 x10e3/uL (4.8-10.8)
[2024-04-07 07:22] LABS: ALBUMIN 2.9 g/dL (3.5-5.0); ALBUMIN/GLOBULIN RATIO 0.7 (0.8-2.0); ANION GAP 24.7 mmol/L (8-16); BILIRUBIN,TOTAL 0.4 mg/dL (0.2-1.2); CALCIUM 9.2 mg/dL (8.4-10.2); CREATININE, SERUM 11.76 mg/dL (0.57-1.11); TOTAL PROTEIN 7.3 g/dL (6.5-8.1)
[2024-04-07 07:24] LABS: POTASSIUM 5.7 mmol/L (3.5-5.1)
[2024-04-07] MEDS: OYST-CAL-D 500MG TABLET PO SCH (08:09)
[2024-04-07] MEDS: PREGABALIN 75 MG CAP PO SCH (08:09)
[2024-04-07] MEDS: INSULIN GLARGINE 100 UNITS/ML VIAL SQ SCH (08:12)
[2024-04-07] MEDS ORDERED: PANTOPRAZOLE SOD 40 MG TABEC PO SCH (09:00)
[2024-04-07] MEDS ORDERED: SODIUM CHLORIDE 0.9% 1000ML 2,000 ML IV PRN (09:45)
[2024-04-07 14:46] LABS: FREE T4 (FREE THYROXINE) 1.12 ng/dL (0.8-1.8); THYROID STIMULATING HORMONE 2.204 uIU/mL (0.350-4.940)
[2024-04-07] MEDS: INSULIN REGULAR, HUMAN 3ML VL 100 UNIT in SODIUM CHLORIDE 0.9% 100 ML IV SCH (17:32)
[2024-04-07] MEDS: PRAMIPEXOLE DIHYDROCHLORIDE 0.25 MG TAB PO SCH (19:58)
[2024-04-08] VITALS (25 sets, daily range): BP systolic 102–145; BP diastolic 62–83; PULSE 70–88; RESP 8–17; TEMP 97–98.3; O2SAT 93–100
[2024-04-08 06:59] LABS: ANION GAP 16.1 mmol/L (8-16); CALCIUM 8.7 mg/dL (8.4-10.2); CREATININE, SERUM 6.8 mg/dL (0.57-1.11); POTASSIUM 4.1 mmol/L (3.5-5.1)
[2024-04-08] MEDS: DEXTROSE 50% SYRINGE 50 ML IV PRN (08:27)
[2024-04-08] MEDS: CLOPIDOGREL BISULFATE 75 MG TAB PO SCH (09:05)
[2024-04-08] MEDS: APIXABAN 2.5 MG TABLET PO SCH (09:06)
[2024-04-08] MEDS: SODIUM CHLORIDE 0.9% 1000ML 1,000 ML ONE (09:41)
[2024-04-08] MEDS: CALCIUM CARBONATE 500 MG CHEWABLE TABS PO PRN (09:44)
[2024-04-08] MEDS: TRAMADOL HCL 50 MG TAB PO PRN (09:46)
[2024-04-08] MEDS: INSULIN GLARGINE 100 UNITS/ML VIAL SQ SCH (10:31)
[2024-04-08] MEDS ORDERED: ALBUMIN 25% 12.5GM 0.25 GM/ML BTL IV PRN (14:30)
[2024-04-08] MEDS: INSULIN LISPRO 100 UNIT/1 ML 3ML VIAL SQ SCH (16:32)
[2024-04-08] MEDS ORDERED: INSULIN GLARGINE 100 UNITS/ML VIAL SQ SCH (21:00)
[2024-04-09] MEDS ORDERED: INSULIN GLARGINE 100 UNITS/ML VIAL SQ SCH ×2 (09:00)
== END 2024-04-08 17:07 | disposition left against medical advice (07) ==
LOC: ER 11:32 → ERHOLD 14:34 → INTOOBSV 14:34 → ICU 23:29 → OBSVTOIN 04-08 08:30 → INTOOBSV 04-08 08:30
PROVIDERS: ADMIT Internal Medicine; ATTEND Internal Medicine
DX: E11.65 Type 2 diabetes mellitus with hyperglycemia (principal); E11.22 Type 2 diabetes mellitus with diabetic chronic kidney disease; E11.10 Type 2 diabetes mellitus with ketoacidosis without coma; E11.43 Type 2 diabetes mellitus with diabetic autonomic (poly)neuropathy; K31.84 Gastroparesis; N17.9 Acute kidney failure, unspecified; Z91.158 Patient's noncompliance with renal dialysis for other reason; I12.0 Hypertensive chronic kidney disease with stage 5 chronic kidney disease or end stage renal disease; N18.6 End stage renal disease; Z99.2 Dependence on renal dialysis; E87.5 Hyperkalemia; E87.70 Fluid overload, unspecified; J90 Pleural effusion, not elsewhere classified; J98.11 Atelectasis; I48.91 Unspecified atrial fibrillation; R53.81 Other malaise; E11.42 Type 2 diabetes mellitus with diabetic polyneuropathy; E11.319 Type 2 diabetes mellitus with unspecified diabetic retinopathy without macular edema; E11.51 Type 2 diabetes mellitus with diabetic peripheral angiopathy without gangrene; Z79.4 Long term (current) use of insulin; Z53.29 Procedure and treatment not carried out because of patient's decision for other reasons; Z91.148 Patient's other noncompliance with medication regimen for other reason; Z91.198 Patient's noncompliance with other medical treatment and regimen for other reason; D64.9 Anemia, unspecified; E89.0 Postprocedural hypothyroidism; H54.8 Legal blindness, as defined in USA; E66.01 Morbid (severe) obesity due to excess calories; Z68.36 Body mass index [BMI] 36.0-36.9, adult; Z95.5 Presence of coronary angioplasty implant and graft
CPT/HCPCS: 36415 ×3; 74176; 80048; 80053 ×2; 82947; 82948 ×3; 83036; 83690; 84439; 84443; 85025 ×2; 86706; 87340; 93005; 93306; 94640; 94799 ×3; 97110; 97116; 97162; 99252; 99284; G0257; G0378 ×3; J1815; J2405 ×3; J2470 ×3; J7030; J7050 ×2; J7799